=== PATIENT | male | born 1955 | race Caucasian/White ===

== ENCOUNTER 2025-04-08 15:30 | Emergency (ER) | payer MEDICARE, MEDICAID, SELFPAY ==
--- NOTE | ~2025-04-08 | CT_ITS ---
CLINICAL HISTORY: opthalmology request for possible CVA CT head without contrast. COMPARISON: None FINDINGS: The visualized paranasal sinuses are clear. The mastoid air cells are clear. No calvarial fracture. Atherosclerotic intracranial vasculature. Encephalomalacia within the medial left occipital lobe consistent with remote infarct. No mass or mass effect. No intracranial hemorrhage or abnormal extra-axial fluid collection. Basal ganglia mineralization present. The ventricles are proportional with the degree of mild global cerebral volume loss without evidence of hydrocephalus. Basilar cisterns are patent. There are periventricular areas of low attenuation compatible with mild white matter small vessel disease. Posterior fossa appears unremarkable. IMPRESSION: 1. No acute intracranial findings. 2. Chronic left occipital lobe infarct. This document has been electronically signed by: Severo Bermudez MD on 04/08/2025 17:01:34
--- NOTE | 2025-04-08 15:35 | ED_ITS ---
HPI - General Adult General Chief complaint: Recheck/Abnormal Lab/Rx Stated complaint: MRI threatening stroke sent by eye DrChetan & pcp Time Seen by Provider: 04/08/25 17:02 Source: patient, family and old records reviewed Mode of arrival: ambulatory Limitations: no limitations History of Present Illness ED Provider: KARAN HPI narrative: 69 yo male with PMH of HTN, HLD, ESRD on HD M W F and is compliant with HD but is not compliant with his statin/aspirin. He has no hx of afib. Several months ago he was at the doctors and family noticed his eye and face seemed off - they think the R eye. He never had it worked up. He had a doctors appointment today and eye doctor felt his gaze was off and he had a visual field cut. The patient tells me this has been going on for months he was referred here for possible stroke by eye doctor - first time he has seen his doctor since that event months ago. No new symptoms this has been several months. MD complaint: concern for stroke Onset (ago): month(s) Location: eyes Radiation: non-radiation Severity: mild Quality: other (blurry) Relieving factors: none Exacerbating factors: none Associated symptoms: denies other symptoms Treatments prior to arrival: none Related Data Allergies Allergy/AdvReac Type Severity Reaction Status Date / Time No Known Allergies Allergy Verified 04/08/25 15:39 Review of Systems 2 Review of Systems: Constitutional : No Fever, No Chills, No Fatigue ENT/Mouth : No sore throat, No Rhinorrhea Eyes: No Eye Pain, No Swelling, No Redness Cardiovascular : No Chest Pain, No SOB, No Dyspnea on Exertion Respiratory : No Cough, No Sputum Gastrointestinal : No Nausea, No Vomiting, No Diarrhea, No abdominal Pain Genitourinary : No Dysuria, No Urinary Frequency, No Hematuria, Musculoskeletal : No joint pain, No Myalgias, No Joint Swelling Skin : No Skin Lesions, No rash Neuro : No Weakness, No Numbness, No Dizziness, no Headache All other systems reviewed and are negative [facility], [facility] Past Medical History Attestation statement: The following information was validated with the patient. Medical History HTN (hypertension) Hyperlipidemia ESRD (end stage renal disease) Social History Social History (Updated 04/08/25 @ 17:37 by Roselia Potter DO) Patient Tobacco Use Status: Tobacco use Unknown Physical Exam ED Vital Signs: Vital Signs - 24 hr 04/08/25 15:37 04/08/25 16:25 Temperature 98.0 F 97.6 F Pulse Rate 90 82 Respiratory Rate 18 18 Blood Pressure 149/71 H 166/77 H Pulse Oximetry 96 98 Oxygen Delivery Method Room Air Room Air BMI result Body Mass Index 26.7 Appearance: Alert. Oriented X3. No acute distress. Eyes: Pupils equal, round and reactive to light. ENT: Pharynx normal. Neck: Normal inspection. Neck supple. CVS: Normal heart rate and rhythm. Pulses normal. Respiratory: No respiratory distress. Breath sounds normal. Abdomen: Soft and nontender. Skin: Skin warm and dry. Normal skin color. Normal skin turgor. Extremities: No lower extremity edema. No calf ttp Neuro: Oriented X 3. No motor deficit. No sensory deficit. CN2-12 intact NIH Stroke Scale Internal: Initial- Upon Arrival Level of Consciousness: Alert Level of Consciousness Questions: Answers both questions correctly Level of Consciousness Commands: Performs both tasks correctly Best Gaze: Normal Visual: Partial hemianopia Facial Palsy: Normal Motor Arm (Right): No drift Motor Arm (Left): No drift Motor Leg (Right): No drift Motor Leg (Left): No drift Limb Ataxia: Absent Sensory: Normal Best Language: No aphasia Dysarthia: Normal Extinction and Inattention: No abnormality Score: 1 Course Reevaluation(s) Reevaluation #1: This is a rapid medical exam performed by Richi Caputo NP: Additional HPI, ROS, PE not included below will be deferred to primary provider. 69 yo male with PMHx CKD on dialysis 3x/wk, T2DM, of presents to the ED after being sent from ophthalmology due to to visual field revealing right inferior quandrantonopsia and requesting MRI. Patient states he has had visual changes over past few years . Denies headache, nausea, vomiting. PE: A&O x3, no focal neurological deficits, ambulating with walker Plan: Ct head/brain Medical Decision Making Medical Decision Making MDM Narrative: 69 yo male with PMH of HTN, HLD, ESRD on HD M W and is compliant with HD here with old stroke symptoms but sent in by eye doctor he has no complaints that are new notes it has been several months - at this time will obtain CT head to rule out symptoms. He is not a candidate for TNK and given chronicity does not need CTA or MRI. He can start back on statin and aspirin. Differential Diagnosis Differential Diagnoses: The differential diagnosis associated with the presentation includes chronic stroke, lens, catarach Admission/Observation Consideration of admission/observation: Escalation of care including admission/observation considered several months ago and chronic infarct no indication for acute work up start back on statin and aspirin Independent Interpretation I performed an independent interpretation of an: Rhythm Strip and CT Scan Interpretation: NSR Radiology Impression Discussion of test interpretation with radiology: I have reviewed the radiologist's reading. Independent Historian Clinical information obtained from an independent historian. History obtained from or confirmed by: Other (family) External Record Review External record reviewed: Outpatient record Tests considered The following testing was considered but not selected: they defer labs at this time the y have no concerns Discharge Plan Discharge Clinical Impression: Chronic cerebrovascular accident Patient Disposition: Home, Self-Care Instructions: Stroke (DC), Stroke Prevention (ED) Additional Instructions: your CT scan shows old stroke it is important you take this seriously and start back on your statin and baby aspirin return for any worsening symptoms or concerns follow up as planned with your doctors if you have further stroke symptoms please call 911 immediately FINDINGS: The visualized paranasal sinuses are clear. The mastoid air cells are clear. No calvarial fracture. Atherosclerotic intracranial vasculature. Encephalomalacia within the medial left occipital lobe consistent with remote infarct. No mass or mass effect. No intracranial hemorrhage or abnormal extra-axial fluid collection. Basal ganglia mineralization present. The ventricles are proportional with the degree of mild global cerebral volume loss without evidence of hydrocephalus. Basilar cisterns are patent. There are periventricular areas of low attenuation compatible with mild white matter small vessel disease. Posterior fossa appears unremarkable. IMPRESSION: 1. No acute intracranial findings. 2. Chronic left occipital lobe infarct. Print Language: Azerbaijani
[2025-04-08 15:37] VITALS: BP 149/71; PULSE 90; RESP 18; TEMP 36.7; O2SAT 96; BMI 26.7
[2025-04-08 16:25] VITALS: BP 166/77; PULSE 82; RESP 18; TEMP 36.4; O2SAT 98
--- NOTE | 2025-04-08 17:39 | PC.NURSE ---
pt cleared for DC - pt has no focal neuro deficits. he is reporting some blurriness in left eye, attributing it to cataracts. No facial droop, slurred speech, unsteady gait.
[2025-04-08 18:08] VITALS: BP 166/77; PULSE 82; RESP 18; TEMP 36.4; O2SAT 98
== END 2025-04-08 18:09 | disposition home or self-care (01) ==
PROVIDERS: Emergency Provider Emergency Medicine; PCP Family Medicine
DX: I69.312 Visuospatial deficit and spatial neglect following cerebral infarction (principal); H53.8 Other visual disturbances; I12.0 Hypertensive chronic kidney disease with stage 5 chronic kidney disease or end stage renal disease; N18.6 End stage renal disease; Z99.2 Dependence on renal dialysis; R29.701 NIHSS score 1
CPT/HCPCS: 70450; 99282; 99284

== ENCOUNTER → 2025-04-08 15:41 | Outpatient (BNV) | payer MEDICARE, MEDICAID, SELFPAY | PROVIDERS: Emergency Provider Emergency Medicine; PCP Family Medicine; Visit Provider Radiology Diagnostic Radiology | DX: I63.532 Cerebral infarction due to unspecified occlusion or stenosis of left posterior cerebral artery (principal) | CPT/HCPCS: 70450 ==

== ENCOUNTER 2025-06-04 11:35 | Inpatient (IN) | payer MEDICARE, OTHER, SELFPAY ==
--- NOTE | ~2025-06-04 | XR_ITS ---
CLINICAL HISTORY: 2nd toe infection, diabetic Exam: Left foot and 2nd toe three views Comparison: None Findings: Soft tissue thickening and osseous destruction of 2nd toe distal phalanx, no soft tissue emphysema or radiopaque foreign body. No acute fracture or dislocation. Mild degenerative changes of 1st tarsometatarsal joint. Severe arteriosclerosis. Impression: 2nd toe distal phalanx soft tissue thickening and osseous destruction, concerning for acute osteomyelitis in the setting of known soft tissue infection and diabetes. This document has been electronically signed by: Carol Ramires MD on 06/04/2025 13:21:51
--- NOTE | ~2025-06-04 | MR_ITS ---
CLINICAL HISTORY: osteomyelitis Pt motion throughout exam. MR left foot with and without gadolinium Comparison: None provided Findings: There is motion artifact on multiple sequences. Signal abnormality and enhancement in the 2nd middle and distal phalanges consistent with osteomyelitis. No acute fracture. No joint effusion. Subcutaneous edema throughout the forefoot most prominent around the 2nd digit without rim enhancing abscess. No tears of the visualized flexor and extensor tendons. Partially visualized medial, lateral, and central bands of the plantar fascia are intact. IMPRESSION: Osteomyelitis of the 2nd middle and distal phalanges. This document has been electronically signed by: Neo Meek MD on 06/06/2025 18:33:44
[2025-06-04 11:47] VITALS: BP 138/78; PULSE 84; RESP 15; TEMP 36.1; O2SAT 97; BMI 23.9
--- NOTE | 2025-06-04 12:10 | ED.EXTPRO ---
HPI - Extremity Problem General Chief complaint: Extremity Problem Stated complaint: toe infection Time Seen by Provider: 06/04/25 11:54 Source: patient and other (friend) Mode of arrival: ambulatory Limitations: no limitations History of Present Illness ED Provider: LISY SOUSA PA-C HPI Narrative: 70 year old male with pmhx significant for HTN, HLD, ESRD on HD M/W/F (last dialyzed today), DM with peripheral neuropathy presents to the ED today with concerns for toe infection. His friend Nimesh is at bedside to assist with history. She reports seeing the patient on Saturday (1 week ago) and he did not have any obvious injury or infectious changes to the toe. She reports seeing him today, noticed that the left 2nd toe looked injured with overlying wound. Reports that it had been draining her a white discharge. States this injury must have happened over the last week since she saw him. Patient cannot recall the exact moment in which he injured the toe due to his neuropathy. He denies any pain at present. Reports decreased sensation to the left foot secondary to his neuropathy. 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 Denies fever, chills. No other concerns. Related Data Home Medications ?Medication ?Instructions ?Recorded ?Confirmed aspirin 81 mg tablet,delayed 81 mg PO DAILY 06/04/25 release atorvastatin 40 mg tablet 40 mg PO DAILY 06/04/25 ketorolac 0.5 % eye drops drp 06/04/25 sertraline 50 mg tablet 50 mg PO DAILY 06/04/25 Allergies Allergy/AdvReac Type Severity Reaction Status Date / Time No Known Allergies Allergy Verified 06/04/25 11:50 Review of Systems Review of Systems: Yes all other systems are reviewed and are negative PMFSH Past Medical History Attestation statement: The following information was validated with the patient. Source: old records reviewed, nursing notes reviewed and other (friend nimesh) Medical History HTN (hypertension) Hyperlipidemia ESRD (end stage renal disease) Social History Social History Patient Tobacco Use Status: Former Tobacco user Physical Exam Vital Signs: Vital Signs: Last Vital Signs Temp 96.9 F 06/04/25 11:47 Pulse 84 06/04/25 11:47 Resp 15 06/04/25 11:47 BP 138/78 06/04/25 11:47 Pulse Ox 97 06/04/25 11:47 O2 Del Method Room Air 06/04/25 11:47 BMI result Body Mass Index 23.9 Vital signs stable, afebrile General: Well appearing, in no acute distress. Skin: Warm, dry, intact. No rashes or lesions. Head: Normocephalic, atraumatic. EENT: Hearing is intact b/l. Conjunctiva clear. PERRLA. EOM intact. Moist mucous membranes.? Cardiac: Chest wall symmetric. RRR Lungs: Normal respiratory effort without accessory muscle use. CTA bilaterally Abdomen: Soft, non-tender, non-distended. No rebound tenderness or guarding. Positive BS x4. Ext: +see photo of L foot below. Neuro: AOx3. Normal speech. Ambulating with steady gait. Psych: Appropriate mood and affect. Responds appropriately to questions. Course Course Course Narrative: 1336 -- CBC without leukocytosis. Normocytic anemia, appears to be stable when compared to priors. Chemistry without acute electrolyte abnormality requiring intervention. Renal function appears to be around baseline ESRD, BUN 25 and creatinine 4.47. He was last dialyzed today. Fasting glucose 127. CRP elevated to 1.66, ESR elevated to 75. I received call from Radiology with critical read of acute osteomyelitis of left 2nd toe. > informed patient of workup results. Osteomyelitis will require admission for IV antibiotics. Patient is agreeable with this. He does not endorse any pain at present. > lactic and blood cultures added > IV ceftriaxone and vanco ordered. Will reach out to hospitalist for admission. Medical Decision Making Medical Decision Making [facility] Narrative: 70 year old male with pmhx significant for HTN, HLD, ESRD on HD M/W/F (last dialyzed today), DM with peripheral neuropathy presents to the ED today with concerns for toe infection. Vital signs stable, afebrile. Please refer to exam portion findings. Plan for labs, inflammatory markers, x-rays, re-evaluation Differential Diagnosis Differential Diagnoses: The differential diagnosis associated with the presentation includes ostemyelitis, fracture, onychomycosis, cellulitis, tinea pedis, PAD, diabetic foot wound/ ulcer Admission/Observation Consideration of admission/observation: Escalation of care including admission/observation considered Patient admitted to medicine for management of acute osteomyelitis of left 2nd toe. Consult Healthcare Provider Management of the patient was discussed with: Hospitalist (dr. liang) Lab Data MDM Lab Attestation statement: I reviewed the patient's lab results. As above 06/04/25 12:20 06/04/25 12:20 Labs: Lab Results 06/04/25 Range/Units 12:20 WBC 10.3 (4.8-10.8) X10*3/uL RBC 3.51 L (4.60-5.80) X10*6/uL Hgb 11.9 L (14.0-18.0) g/dl Hct 33.6 L (42.0-52.0) % MCV 95.7 (80.0-98.0) fL MCH 33.9 H (27.0-33.0) pg MCHC 35.4 (31.0-36.0) g/dl RDW 13.2 (11.0-16.0) % Plt Count 175 D (160-400) X10*3/uL MPV 9.3 L (9.4-12.4) fL Immature Gran % (Auto) 0.9 H (0.0-0.4) % Neut % (Auto) 73.5 H (45-73) % Lymph % (Auto) 13.2 L (20-40) % [place] % (Auto) 8.1 (2-11) % Eos % (Auto) 3.8 (0-4) % Baso % (Auto) 0.5 (0-2) % Lymph # (Auto) 1.4 (1.2-4.9) X10*3/uL [place] # (Auto) 0.8 (0.1-1.2) X10*3/uL Eos # (Auto) 0.4 (0.0-0.4) X10*3/uL Baso # (Auto) 0.1 (0.0-0.2) X10*3/uL Abs Immat Gran (auto) 0.09 H (0.00-0.03) X10*3/uL Absolute Neuts (auto) 7.6 (2.0-8.3) x10*3/uL Absolute Nucleated RBC 0.000 (0.0-0.012) X10*3/uL Nucleated RBC % (auto) 0.0 (0.0-0.2) /100WBC ESR 75 H (0-15) MM/HR Sodium 136 (135-145) mmol/L Potassium 4.3 (3.3-5.1) mmol/L Chloride 94 L (96-108) mmol/L Carbon Dioxide 28 (22-29) mmol/L Anion Gap 18 (12-20) BUN 25 H (9-16) mg/dL Creatinine 4.47 H* (0.5-1.4) mg/dL Estim Creat Clear Calc 16.6 Estimated GFR 13 Fasting Glucose 127 H (60-99) mg/dL Calcium 9.4 (8.4-10.2) mg/dL C-Reactive Protein 1.66 H (< or = 0.50) mg/dL Hold Red Top See Note Independent Interpretation I performed an independent interpretation of an: Plain X-Ray Interpretation: X-ray left 2nd toe showing osseous destruction Radiology Impression Discussion of test interpretation with radiology: I have reviewed the radiologist's reading. Radiologist Impression: Procedure(s): XR toe LT min 2V Accession Number(s): [id number] cc: Isabell Sheridan MD; Lisy Sousa ADDENDUMThis document has been electronically signed by: Carol Ramires MD on 06/04/2025 13:21:51 ADDENDUM: This report was discussed with Lisy Sousa PA-C on Jun 04, 2025 13:26:00 EDT. This document has been electronically signed by: Fiona Monaco on 06/04/2025 13:26:37 Addendum Dictated By: Carol Ramires MD Addendum Signed By: <Electronically signed by Carol Ramires MD in OV> 06/04/251326 Addendum Cosigned By: DD/ /26/1321 TD/TT: 06/04/2503/26/1326 CLINICAL HISTORY: 2nd toe infection, diabetic Exam: Left foot and 2nd toe three views Comparison: None Findings: Soft tissue thickening and osseous destruction of 2nd toe distal phalanx, no soft tissue emphysema or radiopaque foreign body. No acute fracture or dislocation. Mild degenerative changes of 1st tarsometatarsal joint. Severe arteriosclerosis. Impression: 2nd toe distal phalanx soft tissue thickening and osseous destruction, concerning for acute osteomyelitis in the setting of known soft tissue infection and diabetes. This document has been electronically signed by: Carol Ramires MD on 06/04/2025 13:21:51 Independent Historian Clinical information obtained from an independent historian. History obtained from or confirmed by: Friend (nimesh) External Record Review External record reviewed: Inpatient record Prescription Management I considered prescription management with: Pain Medication and Antibiotic Chronic Conditions Patient?s care impacted by: Diabetes and Other (neuropathy) Social Determinants Patient?s care significantly limited by Social Determinants of Health including: Other Social Determinant of Health Critical Care Time Critical Care Time Critical Care Time: Yes Total Critical Care Time: 32 Attestation: Critical care time in the amount of 32 minutes has been provided to the patient in terms of direct patient care, frequent reevaluation, consultation with hospitalist, review and interpretation of medical data and results, and management of potentially life-threatening conditions. This is all outside of any medical procedures. Discharge Plan Discharge Clinical Impression: Osteomyelitis Qualifiers: Osteomyelitis location: foot Laterality: left Patient Disposition: Admitted As Inpatient Interventions: Admission Worksheet (ED) Last Done: 06/04/25 13:54
[2025-06-04 12:25] LABS: MANUAL DIFF FLAG NO
[2025-06-04 12:28] LABS: Hematocrit 33.6 % (42.0-52.0); Hemoglobin 11.9 g/dl (14.0-18.0); Imm Gran Abs Auto 0.09 X10*3/uL (0.00-0.03); Imm Gran Pct Auto 0.9 % (0.0-0.4); Lymphocytes Absolute Auto 1.4 X10*3/uL (1.2-4.9); Mean Corpuscular HGB Conc 35.4 g/dl (31.0-36.0); Mean Corpuscular Hemoglobin 33.9 pg (27.0-33.0); Mean Corpuscular Volume 95.7 fL (80.0-98.0); NRBC Abs Auto 0.000 X10*3/uL (0.0-0.012); NRBC Pct Auto 0.0 /100WBC (0.0-0.2); Platelet Count 175 X10*3/uL (160-400); Red Blood Count 3.51 X10*6/uL (4.60-5.80); White Blood Count 10.3 X10*3/uL (4.8-10.8)
[2025-06-04 12:52] LABS: Anion Gap 18 (12-20); Blood Urea Nitrogen 25 mg/dL (9-16); Calcium 9.4 mg/dL (8.4-10.2); Carbon Dioxide 28 mmol/L (22-29); Chloride 94 mmol/L (96-108); Creatinine Clr Calc Pharmacy 16.6; Estimated Glomerular Filt Rate 13; Potassium 4.3 mmol/L (3.3-5.1); Sodium 136 mmol/L (135-145)
[2025-06-04 13:55] VITALS: BP 143/82; PULSE 85; RESP 19; TEMP 36.1; O2SAT 97
[2025-06-04 14:02] VITALS: BP 93/51; PULSE 56; RESP 15; O2SAT 95
[2025-06-04] MEDS: vancomycin/NS 2,000 MG/500 ML PLAST..BAG 250 MG IV (14:28)
--- NOTE | 2025-06-04 14:30 | PHA.MEDREC ---
Pharmacy Consult ? Medication Reconciliation Pharmacy has completed the medication reconciliation. Spoke with patient and daughter to confirm home med regimen.
--- NOTE | 2025-06-04 14:30 | PM.IMHP ---
History of Present Illness Date of Service: 06/04/25 Chief Complaint: Left 2nd toe infection 70 year old male with pmhx significant for HTN, HLD, ESRD on HD M/W/F (last dialyzed today), DM with peripheral neuropathy presents to the ED today with concerns for left toe infection. His KILN FIRER last saw him 1 week ago and did not notice any injury. Patient states that due to his neuropathy he did not feel anything unusual. He does not recount any fall or injury to the toe. In the emergency room, workup consistent acute osteomyelitis in the backdrop of type 2 diabetes. Review of Systems Review of Systems: Denies chest pain Denies shortness of breath Denies nausea vomiting diarrhea Denies fever chills Denies pain overall [facility] Medical History (Updated 06/04/25 @ 14:37 by Con Canales DO) HTN (hypertension) Hyperlipidemia ESRD (end stage renal disease) Social History Patient Tobacco Use Status: Former Tobacco user Smoked in Last 30 Days: No Use of substances other than those prescribed or required for medical reasons: No Advance Directives: Yes Advance Directives Information Provided: No Advance Directives on File: No Do you have a plan to hurt others: No Plan Nutrition Risks: No Nutritional Risk Meds Allergies Allergy/AdvReac Type Severity Reaction Status Date / Time No Known Allergies Allergy Verified 06/04/25 11:50 Active Medications: Current Medications Vancomycin HCl (Vancomycin/Ns) 2,000 mg in 500 mls @ 250 mls/hr IV ONCE ONE Stop: 06/04/25 15:29 Last Admin: 06/04/25 14:28 Dose: 250 mls/hr Home Medications ?Medication ?Instructions ?Recorded ?Confirmed ?Last Taken ?Type aspirin 81 mg tablet,delayed 81 mg PO DAILY 06/04/25 06/04/25 06/04/25 09:00 History release atorvastatin 40 mg tablet 40 mg PO DAILY 06/04/25 06/04/25 06/04/25 09:00 History sevelamer carbonate 800 mg tablet 1,600 mg PO TIDAC 06/04/25 06/04/25 06/04/25 09:00 History Physical Exam Vital Signs and Narrative: Vital Signs: Last Vital Signs Temp 97.0 F 06/04/25 13:55 Pulse 56 06/04/25 14:02 Resp 15 06/04/25 14:02 BP 93/51 L 06/04/25 14:02 Pulse Ox 95 06/04/25 14:02 O2 Del Method Room Air 06/04/25 14:02 BMI result Body Mass Index 23.9 Const: Other: Awake alert no acute distress. Lying comfortably in bed Resp: Other: Clear to auscultation bilaterally. No rales rhonchi or wheezes Cardio: Other: No S4; positive S1-S2; no S3 2/6 systolic murmur left sternal border GI: Other: Soft nontender nondistended normoactive bowel sounds Neuro: Other: Cranial nerves 2-12 grossly intact as tested. Motor 5/5 in all extremities sensation intact upper extremity mid tibial distally with decreased sensation. Vibration not tested. Cognition appropriate. Gait not observed Extrem: Other: No edema bilaterally. See ER photo for left 2nd toe Results Labs 06/04/25 12:20 06/04/25 12:20 Labs: Laboratory Results - last 24 hr 06/04/25 06/04/25 12:20 13:38 MCV 95.7 MCH 33.9 H MCHC 35.4 RDW 13.2 Plt Count 175 D MPV 9.3 L Immature Gran % (Auto) 0.9 H Neut % (Auto) 73.5 H Lymph % (Auto) 13.2 L [place] % (Auto) 8.1 Eos % (Auto) 3.8 Baso % (Auto) 0.5 Lymph # (Auto) 1.4 [place] # (Auto) 0.8 Eos # (Auto) 0.4 Baso # (Auto) 0.1 Abs Immat Gran (auto) 0.09 H Absolute Neuts (auto) 7.6 Absolute Nucleated RBC 0.000 Nucleated RBC % (auto) 0.0 ESR 75 H Anion Gap 18 Estim Creat Clear Calc 16.6 Estimated GFR 13 Fasting Glucose 127 H Lactic Acid 1.7 Calcium 9.4 C-Reactive Protein 1.66 H Hold Red Top See Note Assessment and Plan (1) Osteomyelitis: Qualifiers: Laterality: left Osteomyelitis location: foot Osteomyelitis type: unspecified type Qualified Code(s): M86.9 - Osteomyelitis, unspecified Status: Acute (2) ESRD (end stage renal disease): Status: Acute (3) Diabetes type 2, controlled: Status: Acute (4) HTN (hypertension): Status: Acute Plan 70 year old male with pmhx significant for HTN, HLD, ESRD on HD M/W/F (last dialyzed today), DM with peripheral neuropathy presents to the ED today with left 2nd toe osteomyelitis. 1. Osteomyelitis left 2nd toe -vancomycin/Zosyn (1) -blood cultures drawn/pending -MRI left foot spot toe in a.m. -ID consult in a.m. 2. End-stage renal disease on hemodialysis -HD schedule Saturday (dialyze today). . . Follows with Dr. Mckeon -consult Dr. Mckeon for ongoing hemodialysis if needed 3. Diabetes type 2 -states diet control. .. Last A1c 5.5 -lispro correctional scale -Diabetic diet -adjust as indicated 4. Hypertension -acceptable control on current therapies -adjust as indicated Full code Heparin Patient will require at least 2 midnights going forward of inpatient stay to treat osteomyelitis with IV antibiotics and obtain specialty consultation. This can not be achieved a lesser acute setting Quality Stroke Does the patient have a stroke diagnosis?: No VTE Prior VTE?: No VTE Risk Level:: Medical - moderate - high VTE Device Contraindication: Treatment Not Indicated VTE Drug Contraindication: N/A - Med Ordered
[2025-06-04 15:49] VITALS: BMI 25.8
[2025-06-04] MEDS: Sevelamer Carbonate Tablet 800 MG TABLET 1600 MG PO (15:57)
[2025-06-04 16:00] VITALS: BP 131/67; PULSE 81; RESP 18; TEMP 36.8; O2SAT 96
[2025-06-04 16:07] LABS: Glucose, Whole Blood 151 mg/dL (60-115)
[2025-06-04 19:46] LABS: Glucose, Whole Blood 161 mg/dL (60-115)
[2025-06-04 19:49] VITALS: BP 151/74; PULSE 78; RESP 18; TEMP 36.9; O2SAT 96
[2025-06-04] MEDS: 0.9 % Sodium Chloride Flush 3 ML SYRINGE IVFLUSH (20:20)
[2025-06-05 03:28] VITALS: BP 140/70; PULSE 72; RESP 18; TEMP 36.6; O2SAT 96
[2025-06-05 06:09] LABS: MANUAL DIFF FLAG NO
[2025-06-05 06:13] LABS: Hematocrit 33.9 % (42.0-52.0); Hemoglobin 11.6 g/dl (14.0-18.0); Imm Gran Abs Auto 0.07 X10*3/uL (0.00-0.03); Imm Gran Pct Auto 0.7 % (0.0-0.4); Lymphocytes Absolute Auto 1.5 X10*3/uL (1.2-4.9); Mean Corpuscular HGB Conc 34.2 g/dl (31.0-36.0); Mean Corpuscular Hemoglobin 33.3 pg (27.0-33.0); Mean Corpuscular Volume 97.4 fL (80.0-98.0); NRBC Abs Auto 0.000 X10*3/uL (0.0-0.012); NRBC Pct Auto 0.0 /100WBC (0.0-0.2); Platelet Count 173 X10*3/uL (160-400); Red Blood Count 3.48 X10*6/uL (4.60-5.80); White Blood Count 9.7 X10*3/uL (4.8-10.8)
[2025-06-05 06:37] LABS: Alanine Aminotransferase 11 U/L (0-40); Albumin Level 4.0 g/dL (3.5-5.0); Alkaline Phosphatase 82 U/L (39-117); Anion Gap 21 (12-20); Aspartate Amino Transferase 15 U/L (5-37); Blood Urea Nitrogen 42 mg/dL (9-16); Calcium 9.3 mg/dL (8.4-10.2); Carbon Dioxide 26 mmol/L (22-29); Chloride 95 mmol/L (96-108); Creatinine Clr Calc Pharmacy 11.5; Estimated Glomerular Filt Rate 9; Potassium 5.3 mmol/L (3.3-5.1); Sodium 137 mmol/L (135-145); Total Protein 7.4 g/dL (6.5-8.0)
[2025-06-05 07:27] LABS: Glucose, Whole Blood 128 mg/dL (60-115)
[2025-06-05 07:40] VITALS: BP 134/73; PULSE 78; RESP 18; TEMP 36.7; O2SAT 95
[2025-06-05] MEDS: Sevelamer Carbonate Tablet 800 MG TABLET 1600 MG PO ×3 (08:29→16:48)
[2025-06-05] MEDS: Aspirin Enteric Coated 81 MG TABLET.DR PO (08:29)
[2025-06-05] MEDS: 0.9 % Sodium Chloride Flush 3 ML SYRINGE IVFLUSH ×3 (08:31→20:26)
[2025-06-05] MEDS: Milk of Magnesia 30 ML ORAL.SUSP PO (09:04)
--- NOTE | 2025-06-05 10:17 | MHC.CM.PN ---
PT REPORTS HE LIVES WITH HIS SON AND EX- HE HAS A REGISTERED DENTAL ASSISTANT RDA TYPICALLY EVERY OTHER DAY AND GOES TO [facility] FOR HD MWF FOR A 0530 CHAIR TIME HE USES A ROLLATOR TO AMBULATE COPY OF HCP REQUESTED PCP: SEBASTIÁN SMYTH IMM DELIVERED PT STATES HE THINKS HE HAS SOMEONE THAT CAN ASSIST WITH IV ABX HE WOULD PREFER TO GO HOME WITH SERVICES IF POSSIBLE PRIVATE TRANSPORT IF HE GOES HOME. REFERRALS MADE TO [place] AND [place]
[2025-06-05 12:01] LABS: Glucose, Whole Blood 172 mg/dL (60-115)
--- NOTE | 2025-06-05 14:01 | P.PNIM_ITS ---
Subjective Subjective Date of Service: 06/05/25 Interval History: No acute issues overnight. No pain Review of Systems Denies chest pain Denies shortness of breath Denies nausea vomiting diarrhea Denies fever chills Denies pain overall Physical Exam 2 Vital Signs: Vital Signs: Last Vital Signs Temp 98.1 F 06/05/25 07:40 Pulse 78 06/05/25 07:40 Resp 18 06/05/25 07:40 BP 134/73 06/05/25 07:40 Pulse Ox 95 06/05/25 07:40 O2 Del Method Room Air 06/05/25 07:40 BMI result Body Mass Index 25.8 Const: Other: Awake alert no acute distress. Lying comfortably in bed Resp: Other: Clear to auscultation bilaterally. No rales rhonchi or wheezes Cardio: Other: No S4; positive S1-S2; no S3 2/6 systolic murmur left sternal border GI: Other: Soft nontender nondistended normoactive bowel sounds Neuro: Other: Cranial nerves 2-12 grossly intact as tested. Motor 5/5 in all extremities sensation intact upper extremity mid tibial distally with decreased sensation. Vibration not tested. Cognition appropriate. Gait not observed Extrem: Other: No edema bilaterally. See ER photo for left 2nd toe Objective Data Active Medications Acetaminophen (Acetaminophen 325 Mg Tablet) 650 mg PO Q6H PRN PRN Reason: Pain, Mild 1-3,fever,headache Aspirin (Aspirin Enteric Coated 81 Mg Tablet.) 81 mg PO DAILY [facility] Last Admin: 06/05/25 08:29 Dose: 81 mg Documented By: JERO Atorvastatin Calcium (Atorvastatin Calcium 40 Mg Tablet) 40 mg PO DAILY [facility] Last Admin: 06/05/25 08:29 Dose: 40 mg Documented By: JERO Calcium Carbonate (Calcium Carbonate 750 Mg Tab.Chew) 750 mg PO Q4H PRN PRN Reason: Heartburn Dextrose (Dextrose 50 % 25 Gm/50 Ml Syringe) 25 gm IVPUSH Q15M PRN; Protocol PRN Reason: per Hypoglycemia Standing Ord. Glucose (Glucose Gel 15 Gm Gel..Gram.) 15 gm PO Q15M PRN; Protocol PRN Reason: per Hypoglycemia Standing Ord. Heparin Sodium (Porcine) (Heparin Sodium,Porcine 5,000 Unit/Ml Vial) 5,000 unit SUBCUT Q12H [facility] Last Admin: 06/05/25 03:23 Dose: 5,000 unit Documented By: TASNEEM Insulin Human Lispro (Insulin Lispro 100 Unit/Ml 3 Ml Vial) 0 unit SUBCUT QIDACHS [facility]; Protocol Last Admin: 06/05/25 12:16 Dose: 2 unit Documented By: JERO Magnesium Hydroxide (Milk Of Magnesia 30 Ml Oral.Susp) 30 ml PO DAILY PRN PRN Reason: Constipation Last Admin: 06/05/25 09:04 Dose: 30 ml Documented By: JERO Melatonin (Melatonin 3 Mg Tablet) 6 mg PO BEDTIME PRN PRN Reason: Insomnia Ondansetron HCl (Ondansetron Hcl 4 Mg/2 Ml Vial) 4 mg IVPUSH Q8H PRN PRN Reason: Nausea and Vomiting Sevelamer Carbonate (Sevelamer Carbonate Tablet 800 Mg Tablet) 1,600 mg PO TIDAC [facility] Last Admin: 06/05/25 12:12 Dose: 1,600 mg Documented By: JERO Sodium Chloride (0.9 % Sodium Chloride Flush 3 Ml Syringe) [facility] Last Admin: 06/05/25 08:31 Dose: 3 ml Documented By: JERO Labs 06/05/25 05:45 06/05/25 05:45 Labs: Laboratory Results - last 24 hr 06/04/25 06/04/25 06/04/25 13:38 15:58 19:37 MCV MCH MCHC RDW Plt Count MPV Immature Gran % (Auto) Neut % (Auto) Lymph % (Auto) [place] % (Auto) Eos % (Auto) Baso % (Auto) Lymph # (Auto) [place] # (Auto) Eos # (Auto) Baso # (Auto) Abs Immat Gran (auto) Absolute Neuts (auto) Absolute Nucleated RBC Nucleated RBC % (auto) Anion Gap Estim Creat Clear Calc Estimated GFR POC Glucose 151 H 161 H Fasting Glucose Lactic Acid 1.7 Calcium Total Bilirubin AST ALT Alkaline Phosphatase Total Protein Albumin 06/05/25 06/05/25 06/05/25 05:45 07:22 11:55 MCV 97.4 MCH 33.3 H MCHC 34.2 RDW 13.2 Plt Count 173 MPV 9.5 Immature Gran % (Auto) 0.7 H Neut % (Auto) 71.5 Lymph % (Auto) 15.1 L [place] % (Auto) 7.8 Eos % (Auto) 4.3 H Baso % (Auto) 0.6 Lymph # (Auto) 1.5 [place] # (Auto) 0.8 Eos # (Auto) 0.4 Baso # (Auto) 0.1 Abs Immat Gran (auto) 0.07 H Absolute Neuts (auto) 7.0 Absolute Nucleated RBC 0.000 Nucleated RBC % (auto) 0.0 Anion Gap 21 H Estim Creat Clear Calc 11.5 Estimated GFR 9 POC Glucose 128 H 172 H Fasting Glucose 156 H Lactic Acid Calcium 9.3 Total Bilirubin 0.4 AST 15 ALT 11 Alkaline Phosphatase 82 Total Protein 7.4 Albumin 4.0 Assessment and Plan (1) Osteomyelitis: Status: Acute (2) ESRD (end stage renal disease): Status: Acute (3) Diabetes type 2, controlled: Status: Acute (4) HTN (hypertension): Status: Acute Plan 70 year old male with pmhx significant for HTN, HLD, ESRD on HD M/W/F (last dialyzed today), DM with peripheral neuropathy presents to the ED today with left 2nd toe osteomyelitis. 1. Osteomyelitis left 2nd toe -vancomycin/Zosyn (2) -blood cultures drawn/pending -MRI left foot spot toe in a.m. -ID consult in a.m. 2. End-stage renal disease on hemodialysis -HD schedule Saturday (dialyze today). . . Follows with Dr. Mckeon -consult Dr. Mckeon for ongoing hemodialysis 3. Diabetes type 2 -states diet control. .. Last A1c 5.5 -lispro correctional scale -Diabetic diet -adjust as indicated 4. Hypertension -acceptable control on current therapies -adjust as indicated Full code Heparin Patient will require at least 2 midnights going forward of inpatient stay to treat osteomyelitis with IV antibiotics and obtain specialty consultation. This can not be achieved a lesser acute setting Quality Stroke Does the patient have a stroke diagnosis?: No VTE Prior VTE?: No VTE Risk Level:: Medical - moderate - high VTE Device Contraindication: Treatment Not Indicated VTE Drug Contraindication: N/A - Med Ordered
[2025-06-05 15:02] VITALS: BP 144/72; PULSE 78; RESP 18; TEMP 36.8; O2SAT 95
[2025-06-05 16:10] LABS: Glucose, Whole Blood 122 mg/dL (60-115)
[2025-06-05 19:09] VITALS: BP 148/74; PULSE 81; RESP 18; TEMP 37; O2SAT 95
[2025-06-05 20:12] LABS: Glucose, Whole Blood 127 mg/dL (60-115)
[2025-06-06] VITALS (7 sets, daily range): BP systolic 164–188; BP diastolic 81–90; PULSE 70–82; RESP 16–18; TEMP 36.6–36.9; O2SAT 96–97
--- NOTE | 2025-06-06 03:57 | PC.NURSE ---
Addendum entered by Jessica Pires RN 06/06/25 07:04: Handoff report given to oncoming RN at 06:45. Original Note: This screenplay writer assumed care of this patient at midnight 06/06. Pt denies pain or other acute issues. Pt observed resting in bed in no apparent distress on assessment and frequent purposeful rounding. Bed alarm on and safety measures in place. Call florian within reach and pt educated on use. Plan of care continues.
[2025-06-06 06:09] LABS: MANUAL DIFF FLAG NO
[2025-06-06 06:31] LABS: Hematocrit 31.6 % (42.0-52.0); Hemoglobin 10.8 g/dl (14.0-18.0); Imm Gran Abs Auto 0.05 X10*3/uL (0.00-0.03); Imm Gran Pct Auto 0.6 % (0.0-0.4); Lymphocytes Absolute Auto 1.6 X10*3/uL (1.2-4.9); Mean Corpuscular HGB Conc 34.2 g/dl (31.0-36.0); Mean Corpuscular Hemoglobin 33.3 pg (27.0-33.0); Mean Corpuscular Volume 97.5 fL (80.0-98.0); NRBC Abs Auto 0.000 X10*3/uL (0.0-0.012); NRBC Pct Auto 0.0 /100WBC (0.0-0.2); Platelet Count 163 X10*3/uL (160-400); Red Blood Count 3.24 X10*6/uL (4.60-5.80); White Blood Count 8.7 X10*3/uL (4.8-10.8)
[2025-06-06 07:42] LABS: Glucose, Whole Blood 124 mg/dL (60-115)
[2025-06-06] MEDS: Aspirin Enteric Coated 81 MG TABLET.DR PO (07:53)
[2025-06-06] MEDS: Sevelamer Carbonate Tablet 800 MG TABLET 1600 MG PO ×3 (07:53→16:42)
[2025-06-06] MEDS: 0.9 % Sodium Chloride Flush 3 ML SYRINGE IVFLUSH ×3 (07:54→20:23)
[2025-06-06 11:17] LABS: Glucose, Whole Blood 187 mg/dL (60-115)
--- NOTE | 2025-06-06 12:39 | HO.PM.IMPN ---
Subjective Subjective Date of Service: 06/06/25 Interval History: No acute issues overnight. Essentially no pain. Review of Systems Denies chest pain Denies shortness of breath Denies nausea vomiting diarrhea Denies fever chills Denies pain overall Physical Exam Vital Signs: Vital Signs: Last Vital Signs Temp 98.4 F 06/06/25 07:44 Pulse 82 06/06/25 07:44 Resp 17 06/06/25 07:44 BP 164/81 H 06/06/25 07:44 Pulse Ox 96 06/06/25 07:44 O2 Del Method Room Air 06/06/25 07:44 BMI result Body Mass Index 25.8 Const: Other: Awake alert no acute distress. Lying comfortably in bed Resp: Other: Clear to auscultation bilaterally. No rales rhonchi or wheezes Cardio: Other: No S4; positive S1-S2; no S3 2/6 systolic murmur left sternal border GI: Other: Soft nontender nondistended normoactive bowel sounds Neuro: Other: Cranial nerves 2-12 grossly intact as tested. Motor 5/5 in all extremities sensation intact upper extremity mid tibial distally with decreased sensation. Vibration not tested. Cognition appropriate. Gait not observed Extrem: Other: No edema bilaterally. See ER photo for left 2nd toe Objective Data Active Medications Acetaminophen (Acetaminophen 325 Mg Tablet) 650 mg PO Q6H PRN PRN Reason: Pain, Mild 1-3,fever,headache Aspirin (Aspirin Enteric Coated 81 Mg Tablet.) 81 mg PO DAILY [facility] Last Admin: 06/06/25 07:53 Dose: 81 mg Documented By: CHERYLE Atorvastatin Calcium (Atorvastatin Calcium 40 Mg Tablet) 40 mg PO DAILY [facility] Last Admin: 06/06/25 07:53 Dose: 40 mg Documented By: CHERYLE Calcium Carbonate (Calcium Carbonate 750 Mg Tab.Chew) 750 mg PO Q4H PRN PRN Reason: Heartburn Dextrose (Dextrose 50 % 25 Gm/50 Ml Syringe) 25 gm IVPUSH Q15M PRN; Protocol PRN Reason: per Hypoglycemia Standing Ord. Glucose (Glucose Gel 15 Gm Gel..Gram.) 15 gm PO Q15M PRN; Protocol PRN Reason: per Hypoglycemia Standing Ord. Heparin Sodium (Porcine) (Heparin Sodium,Porcine 5,000 Unit/Ml Vial) 5,000 unit SUBCUT Q12H [facility] Last Admin: 06/06/25 02:06 Dose: 5,000 unit Documented By: BRANT Insulin Human Lispro (Insulin Lispro 100 Unit/Ml 3 Ml Vial) 0 unit SUBCUT QIDACHS [facility]; Protocol Last Admin: 06/06/25 11:39 Dose: 2 unit Documented By: CHERYLE Ketorolac Tromethamine (Ketorolac Tromethamine 0.5% Op 5 Ml Drops) 1 drop EYE-LEFT QID [facility] Magnesium Hydroxide (Milk Of Magnesia 30 Ml Oral.Susp) 30 ml PO DAILY PRN PRN Reason: Constipation Last Admin: 06/05/25 09:04 Dose: 30 ml Documented By: JERO Melatonin (Melatonin 3 Mg Tablet) 6 mg PO BEDTIME PRN PRN Reason: Insomnia Ondansetron HCl (Ondansetron Hcl 4 Mg/2 Ml Vial) 4 mg IVPUSH Q8H PRN PRN Reason: Nausea and Vomiting Sevelamer Carbonate (Sevelamer Carbonate Tablet 800 Mg Tablet) 1,600 mg PO TIDAC [facility] Last Admin: 06/06/25 11:39 Dose: 1,600 mg Documented By: CHERYLE Sodium Chloride (0.9 % Sodium Chloride Flush 3 Ml Syringe) 3 ml IVFLUSH QSHIFT [facility] Last Admin: 06/06/25 07:54 Dose: 3 ml Documented By: CHERYLE Labs 06/06/25 05:58 06/05/25 05:45 Labs: Laboratory Results - last 24 hr 06/05/25 06/05/25 06/06/25 16:06 20:04 05:58 MCV 97.5 MCH 33.3 H MCHC 34.2 RDW 12.9 Plt Count 163 MPV 9.7 Immature Gran % (Auto) 0.6 H Neut % (Auto) 68.2 Lymph % (Auto) 18.0 L [place] % (Auto) 7.7 Eos % (Auto) 4.9 H Baso % (Auto) 0.6 Lymph # (Auto) 1.6 [place] # (Auto) 0.7 Eos # (Auto) 0.4 Baso # (Auto) 0.1 Abs Immat Gran (auto) 0.05 H Absolute Neuts (auto) 6.0 Absolute Nucleated RBC 0.000 Nucleated RBC % (auto) 0.0 POC Glucose 122 H 127 H 06/06/25 06/06/25 07:38 11:13 MCV MCH MCHC RDW Plt Count MPV Immature Gran % (Auto) Neut % (Auto) Lymph % (Auto) [place] % (Auto) Eos % (Auto) Baso % (Auto) Lymph # (Auto) [place] # (Auto) Eos # (Auto) Baso # (Auto) Abs Immat Gran (auto) Absolute Neuts (auto) Absolute Nucleated RBC Nucleated RBC % (auto) POC Glucose 124 H 187 H Microbiology Microbiology Results: Microbiology 06/04/25 13:38 Blood Culture - Preliminary Blood - Venous No growth after 24 hours. 06/04/25 13:38 Blood Culture - Preliminary Blood - Venous No growth after 24 hours. Assessment and Plan (1) Osteomyelitis: Status: Acute (2) ESRD (end stage renal disease): Status: Acute (3) HTN (hypertension): Status: Acute Plan 70 year old male with pmhx significant for HTN, HLD, ESRD on HD M/W/F (last dialyzed today), DM with peripheral neuropathy presents to the ED today with left 2nd toe osteomyelitis. 1. Osteomyelitis left 2nd toe -vancomycin/Zosyn (2) -blood cultures drawn.. Negative times 24 hours -MRI left foot spot toe pending -ID consult in a.m. 2. End-stage renal disease on hemodialysis -HD schedule Saturday (dialyze today). . . Follows with Dr. Mckeon -consult Dr. Mckeon for ongoing hemodialysis 3. Diabetes type 2 -states diet control. .. Last A1c 5.5 -lispro correctional scale -Diabetic diet -adjust as indicated 4. Hypertension -acceptable control on current therapies -adjust as indicated Full code Heparin Patient will require at least 2 midnights going forward of inpatient stay to treat osteomyelitis with IV antibiotics and obtain specialty consultation. This can not be achieved a lesser acute setting Quality Stroke Does the patient have a stroke diagnosis?: No VTE Prior VTE?: No VTE Risk Level:: Medical - moderate - high VTE Device Contraindication: Treatment Not Indicated VTE Drug Contraindication: N/A - Med Ordered
[2025-06-06] MEDS: Ketorolac Tromethamine 0.5% Op 5 ML DROPS 1 DROP EYE-LEFT ×3 (13:43→20:19)
[2025-06-06 16:17] LABS: Glucose, Whole Blood 106 mg/dL (60-115)
[2025-06-06 20:26] LABS: Glucose, Whole Blood 125 mg/dL (60-115)
--- NOTE | 2025-06-06 23:36 | PC.NURSE ---
Blood pressure readings reported to hospitalist on duty; 98.3-80-18-188/90 at shift start, repeat one hour, 179/89-77, then 174/84-74. noted elevated previous shift also. Patient denied pain, headaches, feeling dizzy or lightheaded. No new orders after MD read [place] Text note, will continue to monitor
[2025-06-07 00:35] VITALS: BP 168/85; PULSE 78; RESP 18
[2025-06-07 06:20] LABS: MANUAL DIFF FLAG NO
[2025-06-07 06:57] LABS: Hematocrit 30.8 % (42.0-52.0); Hemoglobin 10.9 g/dl (14.0-18.0); Imm Gran Abs Auto 0.05 X10*3/uL (0.00-0.03); Imm Gran Pct Auto 0.5 % (0.0-0.4); Lymphocytes Absolute Auto 1.3 X10*3/uL (1.2-4.9); Mean Corpuscular HGB Conc 35.4 g/dl (31.0-36.0); Mean Corpuscular Hemoglobin 34.1 pg (27.0-33.0); Mean Corpuscular Volume 96.3 fL (80.0-98.0); NRBC Abs Auto 0.000 X10*3/uL (0.0-0.012); NRBC Pct Auto 0.0 /100WBC (0.0-0.2); Platelet Count 175 X10*3/uL (160-400); Red Blood Count 3.20 X10*6/uL (4.60-5.80); White Blood Count 10.2 X10*3/uL (4.8-10.8)
[2025-06-07 07:01] LABS: Alanine Aminotransferase 6 U/L (0-40); Albumin Level 3.8 g/dL (3.5-5.0); Alkaline Phosphatase 83 U/L (39-117); Anion Gap 23 (12-20); Aspartate Amino Transferase 13 U/L (5-37); Blood Urea Nitrogen 88 mg/dL (9-16); Calcium 8.7 mg/dL (8.4-10.2); Carbon Dioxide 23 mmol/L (22-29); Chloride 94 mmol/L (96-108); Creatinine Clr Calc Pharmacy 7.3; Estimated Glomerular Filt Rate 5; Potassium 5.9 mmol/L (3.3-5.1); Sodium 134 mmol/L (135-145); Total Protein 7.0 g/dL (6.5-8.0)
[2025-06-07 07:33] LABS: Glucose, Whole Blood 111 mg/dL (60-115)
[2025-06-07 07:45] VITALS: BP 178/89; PULSE 82; RESP 16; TEMP 36.1; O2SAT 96
[2025-06-07] MEDS: 0.9 % Sodium Chloride Flush 3 ML SYRINGE IVFLUSH ×3 (07:47→22:45)
[2025-06-07] MEDS: Sevelamer Carbonate Tablet 800 MG TABLET 1600 MG PO ×3 (07:48→16:04)
[2025-06-07] MEDS: Ketorolac Tromethamine 0.5% Op 5 ML DROPS 1 DROP EYE-LEFT ×4 (07:48→20:42)
[2025-06-07] MEDS: Aspirin Enteric Coated 81 MG TABLET.DR PO (07:48)
[2025-06-07 10:48] LABS: Glucose, Whole Blood 104 mg/dL (60-115)
[2025-06-07 11:04] LABS: Glucose, Whole Blood 171 mg/dL (60-115)
--- NOTE | 2025-06-07 11:05 | P.CNID_ITS ---
History of Present Illness Data of Consult Service Date: 06/07/25 Requesting physician: Brenton Cat Primary Care Provider: Isabell Sheridan MD [facility] Reason for consult: left second toe OM He presents with left second toe redness and swelling. He thinks may have been injured,but not specific He has no fever or chills. MRI shows left middle and distal phalanges OM. He has neuropathy,HTN,ESRD and is on dialysis. Review of Systems 2 Review of Systems: Yes all other systems are reviewed and are negative [facility] Past Medical History Medical History HTN (hypertension) Hyperlipidemia ESRD (end stage renal disease) Family History Family history: reviewed and not pertinent Surgical History Surgical History H/O coronary artery bypass surgery Social History Social History Household Members: Family Housing: House Do you presently have visiting nurse or other home services: Yes ([employer].) Patient Tobacco Use Status: Former Tobacco user Advance Directives Date on File: 06/04/25 service: No Meds Allergies Allergy/AdvReac Type Severity Reaction Status Date / Time No Known Allergies Allergy Verified 06/04/25 11:50 Active Medications: Current Medications Acetaminophen (Acetaminophen 325 Mg Tablet) 650 mg PO Q6H PRN PRN Reason: Pain, Mild 1-3,fever,headache Aspirin (Aspirin Enteric Coated 81 Mg Tablet.) 81 mg PO DAILY [facility] Last Admin: 06/07/25 07:48 Dose: 81 mg Atorvastatin Calcium (Atorvastatin Calcium 40 Mg Tablet) 40 mg PO DAILY [facility] Last Admin: 06/07/25 07:47 Dose: 40 mg Calcium Carbonate (Calcium Carbonate 750 Mg Tab.Chew) 750 mg PO Q4H PRN PRN Reason: Heartburn Dextrose (Dextrose 50 % 25 Gm/50 Ml Syringe) 25 gm IVPUSH Q15M PRN; Protocol PRN Reason: per Hypoglycemia Standing Ord. Glucose (Glucose Gel 15 Gm Gel..Gram.) 15 gm PO Q15M PRN; Protocol PRN Reason: per Hypoglycemia Standing Ord. Heparin Sodium (Porcine) (Heparin Sodium,Porcine 5,000 Unit/Ml Vial) 5,000 unit SUBCUT Q12H [facility] Last Admin: 06/07/25 03:04 Dose: 5,000 unit Vancomycin HCl 500 mg/ Sodium (Chloride) 110 mls @ 110 mls/hr IV ONCE ONE Stop: 06/07/25 17:59 Vancomycin HCl 500 mg/ Sodium (Chloride) 110 mls @ 110 mls/hr IV ONCE ONE Stop: 06/07/25 10:59 Insulin Human Lispro (Insulin Lispro 100 Unit/Ml 3 Ml Vial) 0 unit SUBCUT QIDACHS [facility]; Protocol Last Admin: 06/07/25 07:44 Dose: Not Given Ketorolac Tromethamine (Ketorolac Tromethamine 0.5% Op 5 Ml Drops) 1 drop EYE- LEFT QID [facility] Last Admin: 06/07/25 07:48 Dose: 1 drop Magnesium Hydroxide (Milk Of Magnesia 30 Ml Oral.Susp) 30 ml PO DAILY PRN PRN Reason: Constipation Last Admin: 06/05/25 09:04 Dose: 30 ml Melatonin (Melatonin 3 Mg Tablet) 6 mg PO BEDTIME PRN PRN Reason: Insomnia Ondansetron HCl (Ondansetron Hcl 4 Mg/2 Ml Vial) 4 mg IVPUSH Q8H PRN PRN Reason: Nausea and Vomiting Pharmacy Consult (Consult Rx Vancomycin Dosing) 1 each MISCELLANE DAILY PRN PRN Reason: Consult order Sevelamer Carbonate (Sevelamer Carbonate Tablet 800 Mg Tablet) 1,600 mg PO TIDAC [facility] Last Admin: 06/07/25 07:48 Dose: 1,600 mg Sodium Chloride (0.9 % Sodium Chloride Flush 3 Ml Syringe) 3 ml IVFLUSH QSHIFT [facility] Last Admin: 06/07/25 07:47 Dose: 3 ml Home Medications ?Medication ?Instructions ?Recorded ?Confirmed ?Last Taken ?Type aspirin 81 mg tablet,delayed 81 mg PO DAILY 06/04/25 0 06/04/25 06/04/25 09:00 History release atorvastatin 40 mg tablet 40 mg PO DAILY 06/04/25 07/0 03/2606/04/25 09:00 History sevelamer carbonate 800 mg tablet 1,600 mg PO TIDAC 06/04/25 06/04/25 09:00 History ketorolac 0.5 % eye drops 1 drp ophthalmic-Left QID 06/05/25 Unknown History Physical Exam 2 Vital Signs: Vital Signs: Last Vital Signs Temp 97.0 F 06/07/25 07:45 Pulse 82 06/07/25 07:45 Resp 16 06/07/25 07:45 BP 178/89 H 06/07/25 07:45 Pulse Ox 96 06/07/25 07:45 O2 Del Method Room Air 06/07/25 07:45 BMI result Body Mass Index 25.8 Const: General: cooperative HEENT: Head: Yes normal to inspection Face and sinus: Yes normal facial exam Mouth: Normal oral and palatal mucosa present Teeth and gingiva: d entition normal Eyes: General: appearance normal, both eyes and all related structures P upils: Equal, round and reactive pupils present Resp: Effort & Inspection: normal respiratory effort Cardio: Rate: regular rate Rhythm: regular rhythm GI: Palpation (GI): Soft to palpation and nontender : General: Yes no CVA tenderness Back/Spine/Pelvis: Back: no CVA tenderness Skin: General skin exam: no rashes or lesions noted Neuro: General: moves all extremities Cranial nerves: Yes Equal, round and reactive pupils present Extrem: Other: swelling and erythema left second toe Pulses plus two neuropathy feet and legs Psych: Appearance: grossly normal Results Labs 06/07/25 05:46 06/07/25 05:46 Labs: Short CBC 06/07/25 Range/Units 05:46 WBC 10.2 (4.8-10.8) X10*3/uL Hgb 10.9 L (14.0-18.0) g/dl Hct 30.8 L (42.0-52.0) % Plt Count 175 (160-400) X10*3/uL BMP 06/07/25 05:46 Sodium 134 L Potassium 5.9 H Chloride 94 L Carbon Dioxide 23 BUN 88 H Creatinine 10.18 H* Calcium 8.7 D Liver Function 06/07/25 Range/Units 05:46 Total Bilirubin 0.5 (0.0-1.0) mg/dL AST 13 (5-37) U/L ALT 6 (0-40) U/L Alkaline Phosphatase 83 (39-117) U/L Albumin 3.8 (3.5-5.0) g/dL Microbiology Microbiology Results: Microbiology 06/04/25 13:38 Blood - Venous Blood Culture - Preliminary No growth after 48 hours. 06/04/25 13:38 Blood - Venous Blood Culture - Preliminary No growth after 48 hours. Assessment and Plan (1) ESRD (end stage renal disease): Status: Acute (2) Osteomyelitis: Qualifiers: Laterality: left Osteomyelitis location: foot Osteomyelitis type: u nspecified type Qualified Code(s): M86.9 - Osteomyelitis, unspecified Status: Acute Plan Osteomyelitis,no organism but probable staph/strep He has cultures pending Would give IV Vancomycin 1g after dialysis for six weeks. Follow Vascular. Vancomycin trough before HD,can contact me with results.
--- NOTE | 2025-06-07 12:11 | PC.NURSE ---
Patients Daughter Anabella called for an update on patient and reported that patient is very susceptible to C-dif and will need a probiotic or prophylactic treatment. Hospitalist was contacted and stated that if the family can bring in the probiotic an order can be given for it. This information was relayed back to Anabella who reported that she will take the probiotic in. Kenneth phone number is [phone]
--- NOTE | 2025-06-07 13:14 | P.PNIM_ITS ---
Subjective Subjective Date of Service: 06/07/25 Interval History: seen and evaluated this morning feels better overall no fever or chills plans for HD session today no other events Review of Systems Review of Systems: Yes all other systems are reviewed and are negative Physical Exam 2 Vital Signs: Vital Signs: Last Vital Signs Temp 97.0 F 06/07/25 07:45 Pulse 82 06/07/25 07:45 Resp 16 06/07/25 07:45 BP 178/89 H 06/07/25 07:45 Pulse Ox 96 06/07/25 07:45 O2 Del Method Room Air 06/07/25 07:45 BMI result Body Mass Index 25.8 Const: Other: Constitutional : interactive, not in distress Cardiovascular : no JVP, no lower extremity edema Respiratory : bilateral chest movement, not in resp distress Gastrointestinal: soft, lax, Non tender Skin : Warm, Dry, Left 2nd toe mild erythema and swelling, no drainage Neurological : Alert & oriented , No focal deficit Objective Data Active Medications Acetaminophen (Acetaminophen 325 Mg Tablet) 650 mg PO Q6H PRN PRN Reason: Pain, Mild 1-3,fever,headache Aspirin (Aspirin Enteric Coated 81 Mg Tablet.) 81 mg PO DAILY [facility] Last Admin: 06/07/25 07:48 Dose: 81 mg Documented By: HAILE Atorvastatin Calcium (Atorvastatin Calcium 40 Mg Tablet) 40 mg PO DAILY [facility] Last Admin: 06/07/25 07:47 Dose: 40 mg Documented By: HAILE Calcium Carbonate (Calcium Carbonate 750 Mg Tab.Chew) 750 mg PO Q4H PRN PRN Reason: Heartburn Dextrose (Dextrose 50 % 25 Gm/50 Ml Syringe) 25 gm IVPUSH Q15M PRN; Protocol PRN Reason: per Hypoglycemia Standing Ord. Glucose (Glucose Gel 15 Gm Gel..Gram.) 15 gm PO Q15M PRN; Protocol PRN Reason: per Hypoglycemia Standing Ord. Heparin Sodium (Porcine) (Heparin Sodium,Porcine 5,000 Unit/Ml Vial) 5,000 unit SUBCUT Q12H [facility] Last Admin: 06/07/25 03:04 Dose: 5,000 unit Documented By: DWAIN Vancomycin HCl 500 mg/ Sodium (Chloride) 110 mls @ 110 mls/hr IV ONCE ONE Stop: 06/07/25 17:59 Vancomycin HCl 500 mg/ Sodium (Chloride) 110 mls @ 110 mls/hr IV ONCE ONE Stop: 06/07/25 10:59 Insulin Human Lispro (Insulin Lispro 100 Unit/Ml 3 Ml Vial) 0 unit SUBCUT QIDACHS [facility]; Protocol Last Admin: 06/07/25 11:31 Dose: Not Given Documented By: HAILE Non-Admin Reason: No Insulin Coverage Ketorolac Tromethamine (Ketorolac Tromethamine 0.5% Op 5 Ml Drops) 1 drop EYE- LEFT QID [facility] Last Admin: 06/07/25 12:30 Dose: 1 drop Documented By: HAILE Magnesium Hydroxide (Milk Of Magnesia 30 Ml Oral.Susp) 30 ml PO DAILY PRN PRN Reason: Constipation Last Admin: 06/05/25 09:04 Dose: 30 ml Documented By: JERO Melatonin (Melatonin 3 Mg Tablet) 6 mg PO BEDTIME PRN PRN Reason: Insomnia Ondansetron HCl (Ondansetron Hcl 4 Mg/2 Ml Vial) 4 mg IVPUSH Q8H PRN PRN Reason: Nausea and Vomiting Pharmacy Consult (Consult Rx Vancomycin Dosing) 1 each MISCELLANE DAILY PRN PRN Reason: Consult order Sevelamer Carbonate (Sevelamer Carbonate Tablet 800 Mg Tablet) 1,600 mg PO TIDAC [facility] Last Admin: 06/07/25 11:33 Dose: 1,600 mg Documented By: HAILE Sodium Chloride (0.9 % Sodium Chloride Flush 3 Ml Syringe) 3 ml IVFLUSH QSHIFT [facility] Last Admin: 06/07/25 07:47 Dose: 3 ml Documented By: HAILE Labs 06/07/25 05:46 06/07/25 05:46 Labs: Laboratory Results - last 24 hr 06/04/25 06/06/25 06/06/25 13:14 16:09 20:17 MCV MCH MCHC RDW Plt Count MPV Immature Gran % (Auto) Neut % (Auto) Lymph % (Auto) Waldo % (Auto) Eos % (Auto) Baso % (Auto) Lymph # (Auto) Waldo # (Auto) Eos # (Auto) Baso # (Auto) Abs Immat Gran (auto) Absolute Neuts (auto) Absolute Nucleated RBC Nucleated RBC % (auto) Anion Gap Estim Creat Clear Calc Estimated GFR POC Glucose 104 106 125 H Fasting Glucose Calcium Total Bilirubin AST ALT Alkaline Phosphatase Total Protein Albumin Random Vancomycin 06/07/25 06/07/25 06/07/25 05:46 07:29 08:58 MCV 96.3 MCH 34.1 H MCHC 35.4 RDW 12.9 Plt Count 175 MPV 9.8 Immature Gran % (Auto) 0.5 H Neut % (Auto) 75.6 H Lymph % (Auto) 12.9 L Waldo % (Auto) 6.6 Eos % (Auto) 3.8 Baso % (Auto) 0.6 Lymph # (Auto) 1.3 Waldo # (Auto) 0.7 Eos # (Auto) 0.4 Baso # (Auto) 0.1 Abs Immat Gran (auto) 0.05 H Absolute Neuts (auto) 7.7 Absolute Nucleated RBC 0.000 Nucleated RBC % (auto) 0.0 Anion Gap 23 H Estim Creat Clear Calc 7.3 Estimated GFR 5 POC Glucose 111 Fasting Glucose 157 H Calcium 8.7 D Total Bilirubin 0.5 AST 13 ALT 6 Alkaline Phosphatase 83 Total Protein 7.0 Albumin 3.8 Random Vancomycin 19.4 06/07/25 11:00 MCV MCH MCHC RDW Plt Count MPV Immature Gran % (Auto) Neut % (Auto) Lymph % (Auto) Waldo % (Auto) Eos % (Auto) Baso % (Auto) Lymph # (Auto) Waldo # (Auto) Eos # (Auto) Baso # (Auto) Abs Immat Gran (auto) Absolute Neuts (auto) Absolute Nucleated RBC Nucleated RBC % (auto) Anion Gap Estim Creat Clear Calc Estimated GFR POC Glucose 171 H Fasting Glucose Calcium Total Bilirubin AST ALT Alkaline Phosphatase Total Protein Albumin Random Vancomycin Microbiology Microbiology Results: Microbiology 06/04/25 13:38 Blood Culture - Preliminary Blood - Venous No growth after 48 hours. 06/04/25 13:38 Blood Culture - Preliminary Blood - Venous No growth after 48 hours. Assessment and Plan (1) HTN (hypertension): Status: Acute (2) Diabetes type 2, controlled: Status: Acute (3) ESRD (end stage renal disease): Status: Acute (4) Osteomyelitis: Status: Acute Plan 70 year old male with pmhx significant for HTN, HLD, ESRD on HD M/W/F (last dialyzed today), DM with peripheral neuropathy presents to the ED today with left 2nd toe osteomyelitis. # Osteomyelitis left 2nd toe blood cultures Negative MRI left foot showing 2nd toe OM Continue Vancomycin with dialysis ID rec Vanco post dialysis, 1 gm for 6 weeks # End-stage renal disease on hemodialysis HD schedule MWF Follows with Dr. Mckeon consult Dr. Mckeon for ongoing hemodialysis and need of Vancomycin post HD # Diabetes type 2 states diet control. .. Last A1c 5.5 lispro correctional scale Diabetic diet # uncontrolled HTN BP elevated, not on any home medications Start Amlodipine and monitor Full code Heparin Patient will require overnight inpatient stay to treat osteomyelitis with IV antibiotics and obtain specialty consultation. This can not be achieved a lesser acute setting Quality Stroke Does the patient have a stroke diagnosis?: No VTE Prior VTE?: No VTE Risk Level:: Medical - moderate - high VTE Device Contraindication: Treatment Not Indicated VTE Drug Contraindication: N/A - Med Ordered
[2025-06-07 15:34] VITALS: BP 183/75; PULSE 66; RESP 16; TEMP 36.7; O2SAT 97
[2025-06-07 16:05] LABS: Glucose, Whole Blood 103 mg/dL (60-115)
[2025-06-07 20:00] VITALS: BP 126/63; PULSE 94; RESP 16; TEMP 36.8; O2SAT 97
[2025-06-07 21:32] LABS: Glucose, Whole Blood 155 mg/dL (60-115)
--- NOTE | 2025-06-07 22:48 | PC.NURSE ---
per message received from Pharmacy, no Vancomycin dose for this shift, random trough value was 14.9. Next trough scheduled for 06/08/25 at 1800
[2025-06-08 04:00] VITALS: BP 155/73; PULSE 83; RESP 18; TEMP 36.2; O2SAT 94
[2025-06-08 06:15] LABS: MANUAL DIFF FLAG NO
[2025-06-08 06:24] LABS: Hematocrit 31.3 % (42.0-52.0); Hemoglobin 10.8 g/dl (14.0-18.0); Imm Gran Abs Auto 0.04 X10*3/uL (0.00-0.03); Imm Gran Pct Auto 0.4 % (0.0-0.4); Lymphocytes Absolute Auto 1.3 X10*3/uL (1.2-4.9); Mean Corpuscular HGB Conc 34.5 g/dl (31.0-36.0); Mean Corpuscular Hemoglobin 33.2 pg (27.0-33.0); Mean Corpuscular Volume 96.3 fL (80.0-98.0); NRBC Abs Auto 0.000 X10*3/uL (0.0-0.012); NRBC Pct Auto 0.0 /100WBC (0.0-0.2); Platelet Count 170 X10*3/uL (160-400); Red Blood Count 3.25 X10*6/uL (4.60-5.80); White Blood Count 9.0 X10*3/uL (4.8-10.8)
[2025-06-08 06:38] LABS: Anion Gap 19 (12-20); Blood Urea Nitrogen 43 mg/dL (9-16); Calcium 8.8 mg/dL (8.4-10.2); Carbon Dioxide 27 mmol/L (22-29); Chloride 96 mmol/L (96-108); Creatinine Clr Calc Pharmacy 11.1; Estimated Glomerular Filt Rate 8; Potassium 4.8 mmol/L (3.3-5.1); Sodium 137 mmol/L (135-145)
[2025-06-08 07:46] LABS: Glucose, Whole Blood 140 mg/dL (60-115)
[2025-06-08] MEDS: Aspirin Enteric Coated 81 MG TABLET.DR PO (07:59)
[2025-06-08] MEDS: Sevelamer Carbonate Tablet 800 MG TABLET 1600 MG PO ×3 (08:00→16:08)
[2025-06-08] MEDS: Ketorolac Tromethamine 0.5% Op 5 ML DROPS 1 DROP EYE-LEFT ×2 (08:00→13:17)
[2025-06-08] MEDS: 0.9 % Sodium Chloride Flush 3 ML SYRINGE IVFLUSH ×2 (08:00→16:08)
[2025-06-08 08:04] VITALS: BP 153/78; PULSE 82; RESP 18; TEMP 36.9; O2SAT 95
--- NOTE | 2025-06-08 10:30 | PM.CNNEP ---
History of Present Illness Reason for Consult Consult date: 06/08/25 Chief Complaint Chief complaint: Osteomyelitis History of Present Illness Narrative: 70 y/o matimothy with ESRD on HD MWF, HTN, HLD, DM with peripheral neuropathy. presented 06/04/25 with concerns for left toe infection, being treated for osteomyelitis of left second toe. Nephrology consulted for management of ESRD on HD while hospitalized. Did not miss any HD sessions. Last dialyzed yesterday, 06/07. Retail Business Development Manager is Dr Mckeon. Patient resting comfortably at bedside. Review of Systems Constitutional: Reports no additional constitutional complaints Cardiovascular: Denies chest pain, Denies leg edema and Denies dyspnea Respiratory: Denies dyspnea Gastrointestinal: Denies abdominal pain Genitourinary: Denies dysuria Musculoskeletal: Denies back pain and Denies muscle cramps Skin/Breast: Denies rash Denies tremor(s) PMFSH Past Medical History Medical History HTN (hypertension) Hyperlipidemia ESRD (end stage renal disease) Family History Family history: reviewed and not pertinent Surgical History Surgical History H/O coronary artery bypass surgery Social History Social History Household Members: Family Housing: House Do you presently have visiting nurse or other home services: Yes ([employer].) Patient Tobacco Use Status: Former Tobacco user Advance Directives Date on File: 06/04/25 service: No Meds Allergies Allergy/AdvReac Type Severity Reaction Status Date / Time No Known Allergies Allergy Verified 06/04/25 11:50 Active Medications: Current Medications Acetaminophen (Acetaminophen 325 Mg Tablet) 650 mg PO Q6H PRN PRN Reason: Pain, Mild 1-3,fever,headache Amlodipine Besylate (Amlodipine Besylate 5 Mg Tablet) 5 mg PO DAILY [facility]; Protocol Last Admin: 06/08/25 07:59 Dose: 5 mg Aspirin (Aspirin Enteric Coated 81 Mg Tablet.) 81 mg PO DAILY [facility] Last Admin: 06/08/25 07:59 Dose: 81 mg Atorvastatin Calcium (Atorvastatin Calcium 40 Mg Tablet) 40 mg PO DAILY [facility] Last Admin: 06/08/25 07:59 Dose: 40 mg Calcium Carbonate (Calcium Carbonate 750 Mg Tab.Chew) 750 mg PO Q4H PRN PRN Reason: Heartburn Dextrose (Dextrose 50 % 25 Gm/50 Ml Syringe) 25 gm IVPUSH Q15M PRN; Protocol PRN Reason: per Hypoglycemia Standing Ord. Diphenhydramine HCl (Diphenhydramine Hcl 50 Mg/Ml Vial) 25 mg IVPUSH Q6H PRN PRN Reason: Itching Last Admin: 06/07/25 14:37 Dose: 25 mg Glucose (Glucose Gel 15 Gm Gel..Gram.) 15 gm PO Q15M PRN; Protocol PRN Reason: per Hypoglycemia Standing Ord. Heparin Sodium (Porcine) (Heparin Sodium,Porcine 5,000 Unit/Ml Vial) 5,000 unit SUBCUT Q12H [facility] Last Admin: 06/08/25 02:48 Dose: 5,000 unit Vancomycin HCl 500 mg/ Sodium (Chloride) 110 mls @ 110 mls/hr IV ONCE ONE Stop: 06/07/25 10:59 Insulin Human Lispro (Insulin Lispro 100 Unit/Ml 3 Ml Vial) 0 unit SUBCUT QIDACHS [facility]; Protocol Last Admin: 06/08/25 11:50 Dose: Not Given Ketorolac Tromethamine (Ketorolac Tromethamine 0.5% Op 5 Ml Drops) 1 drop EYE-LEFT QID [facility] Last Admin: 06/08/25 08:00 Dose: 1 drop Magnesium Hydroxide (Milk Of Magnesia 30 Ml Oral.Susp) 30 ml PO DAILY PRN PRN Reason: Constipation Last Admin: 06/05/25 09:04 Dose: 30 ml Melatonin (Melatonin 3 Mg Tablet) 6 mg PO BEDTIME PRN PRN Reason: Insomnia Ondansetron HCl (Ondansetron Hcl 4 Mg/2 Ml Vial) 4 mg IVPUSH Q8H PRN PRN Reason: Nausea and Vomiting Pharmacy Consult (Consult Rx Vancomycin Dosing) 1 each MISCELLANE DAILY PRN PRN Reason: Consult order Sevelamer Carbonate (Sevelamer Carbonate Tablet 800 Mg Tablet) 1,600 mg PO TIDAC [facility] Last Admin: 06/08/25 11:52 Dose: 1,600 mg Sodium Chloride (0.9 % Sodium Chloride Flush 3 Ml Syringe) 3 ml IVFLUSH QSHIFT [facility] Last Admin: 06/08/25 08:00 Dose: 3 ml Home Medications ?Medication ?Instructions ?Recorded ?Confirmed ?Last Taken ?Type aspirin 81 mg tablet,delayed 81 mg PO DAILY 06/04/25 06/04/25 06/04/25 09:00 History release atorvastatin 40 mg tablet 40 mg PO DAILY 06/04/25 06/04/25 06/04/25 09:00 History sevelamer carbonate 800 mg tablet 1,600 mg PO TIDAC 06/04/25 06/04/25 06/04/25 09:00 History ketorolac 0.5 % eye drops 1 drp ophthalmic-Left QID 06/05/25 06/05/25 Unknown History Physical Exam Vital Signs: Last Vital Signs Temp 98.4 F 06/08/25 08:04 Pulse 82 06/08/25 08:04 Resp 18 06/08/25 08:04 BP 153/78 H 06/08/25 08:04 Pulse Ox 95 06/08/25 08:04 O2 Del Method Room Air 06/08/25 08:04 BMI result Body Mass Index 25.8 Const General: alert, awake and acute distress Resp Effort & Inspection: normal respiratory effort Auscultation: clear to auscultation bilaterally Cardio Rate: regular rate Rhythm: regular rhythm Heart sounds: S1 normal heart sound present and S2 normal heart sound present GI Palpation (GI): Soft to palpation and nontender Skin Rashes: no rashes Extrem General: No edema Results Lab Results 06/08/25 05:55 06/08/25 05:55 Lab results: Chemistry 06/07/25 06/08/25 05:46 05:55 Sodium 134 L 137 Potassium 5.9 H 4.8 Carbon Dioxide 23 27 BUN 88 H 43 H Creatinine 10.18 H* 6.67 H* Calcium 8.7 D 8.8 Hematology 06/06/25 06/07/25 06/08/25 05:58 05:46 05:55 WBC 8.7 10.2 9.0 Hgb 10.8 L 10.9 L 10.8 L Plt Count 163 175 170 Assessment and Plan (1) ESRD (end stage renal disease): Status: Acute Plan ESRD on HD MWF will continue outpatient schedule- HD tomorrow AV fistula H&H 10.8 & 31.3, no indication for procrit at this time electrolytes within normal limits calcium 8.8, will check phos tomorrow low potassium, low sodium, low phosphorus diet fluid restriction 1.5L/[address] Figueroa Procedures Date of Service Date of Service: 06/08/25
--- NOTE | 2025-06-08 10:32 | P.CONGS_ITS ---
<Statement entered by Jacques Sam MD - 06/08/25 15:08> I have seen and evaluated the patient and agree with history, findings, assessment and plan documented by Christie Hernandez PA-c. History of Present Illness Consult details Consult date: 06/08/25 Narrative: We were consulted on Jordan, for concerns of a wound on the left 2nd toe. He presented to the ER on 06/04 with concerns of a possible injury to the left 2nd toe/wound. He has a medical hx pertinent for HTN, ESRD on HD MWF, HLD, DM, and peripheral neuropathy. He was found on toe XR to have acute osteo. He was admitted for IV Abx. He states he does not remember hitting/stubbing his toe, but it is possible. He states he has no feelings in his toes/feet. He does utilize a rolling walker at home. He denies any other wounds; he states the nurse at dialysis noted the wound and advised him to get checked out. He has no new concerns this morning. He does regularly see a Armature Balancer, he has an appt later this month. [facility] Past Medical History Medical History HTN (hypertension) Hyperlipidemia ESRD (end stage renal disease) Family History Family history: reviewed and not pertinent Surgical History Surgical History H/O coronary artery bypass surgery Social History Social History Household Members: Family Housing: House Do you presently have visiting nurse or other home services: Yes ([employer].) Patient Tobacco Use Status: Former Tobacco user Advance Directives Date on File: 06/04/25 service: No Meds Allergies Allergy/AdvReac Type Severity Reaction Status Date / Time No Known Allergies Allergy Verified 06/04/25 11:50 Active Medications: Current Medications Acetaminophen (Acetaminophen 325 Mg Tablet) 650 mg PO Q6H PRN PRN Reason: Pain, Mild 1-3,fever,headache Amlodipine Besylate (Amlodipine Besylate 5 Mg Tablet) 5 mg PO DAILY [facility]; Protocol Last Admin: 06/08/25 07:59 Dose: 5 mg Aspirin (Aspirin Enteric Coated 81 Mg Tablet.) 81 mg PO DAILY [facility] Last Admin: 06/08/25 07:59 Dose: 81 mg Atorvastatin Calcium (Atorvastatin Calcium 40 Mg Tablet) 40 mg PO DAILY [facility] Last Admin: 06/08/25 07:59 Dose: 40 mg Calcium Carbonate (Calcium Carbonate 750 Mg Tab.Chew) 750 mg PO Q4H PRN PRN Reason: Heartburn Dextrose (Dextrose 50 % 25 Gm/50 Ml Syringe) 25 gm IVPUSH Q15M PRN; Protocol PRN Reason: per Hypoglycemia Standing Ord. Diphenhydramine HCl (Diphenhydramine Hcl 50 Mg/Ml Vial) 25 mg IVPUSH Q6H PRN PRN Reason: Itching Last Admin: 06/07/25 14:37 Dose: 25 mg Glucose (Glucose Gel 15 Gm Gel..Gram.) 15 gm PO Q15M PRN; Protocol PRN Reason: per Hypoglycemia Standing Ord. Heparin Sodium (Porcine) (Heparin Sodium,Porcine 5,000 Unit/Ml Vial) 5,000 unit SUBCUT Q12H [facility] Last Admin: 06/08/25 02:48 Dose: 5,000 unit Vancomycin HCl 500 mg/ Sodium (Chloride) 110 mls @ 110 mls/hr IV ONCE ONE Stop: 06/07/25 10:59 Insulin Human Lispro (Insulin Lispro 100 Unit/Ml 3 Ml Vial) 0 unit SUBCUT QIDACHS [facility]; Protocol Last Admin: 06/08/25 07:44 Dose: Not Given Ketorolac Tromethamine (Ketorolac Tromethamine 0.5% Op 5 Ml Drops) 1 drop EYE- LEFT QID [facility] Last Admin: 06/08/25 08:00 Dose: 1 drop Magnesium Hydroxide (Milk Of Magnesia 30 Ml Oral.Susp) 30 ml PO DAILY PRN PRN Reason: Constipation Last Admin: 06/05/25 09:04 Dose: 30 ml Melatonin (Melatonin 3 Mg Tablet) 6 mg PO BEDTIME PRN PRN Reason: Insomnia Ondansetron HCl (Ondansetron Hcl 4 Mg/2 Ml Vial) 4 mg IVPUSH Q8H PRN PRN Reason: Nausea and Vomiting Pharmacy Consult (Consult Rx Vancomycin Dosing) 1 each MISCELLANE DAILY PRN PRN Reason: Consult order Sevelamer Carbonate (Sevelamer Carbonate Tablet 800 Mg Tablet) 1,600 mg PO TIDAC [facility] Last Admin: 06/08/25 08:00 Dose: 1,600 mg Sodium Chloride (0.9 % Sodium Chloride Flush 3 Ml Syringe) 3 ml IVFLUSH QSHIFT [facility] Last Admin: 06/08/25 08:00 Dose: 3 ml Home Medications ?Medication ?Instructions ?Recorded ?Confirmed ?Last Taken ?Type aspirin 81 mg tablet,delayed 81 mg PO DAILY 06/04/25 0 06/04/25 06/04/25 09:00 History release atorvastatin 40 mg tablet 40 mg PO DAILY 06/04/25 07/0 03/2606/04/25 09:00 History sevelamer carbonate 800 mg tablet 1,600 mg PO TIDAC 06/04/25 06/04/25 09:00 History ketorolac 0.5 % eye drops 1 drp ophthalmic-Left QID 06/05/25 Unknown History Physical Exam 2 Vital Signs: Vital Signs: Last Vital Signs Temp 98.4 F 06/08/25 08:04 Pulse 82 06/08/25 08:04 Resp 18 06/08/25 08:04 BP 153/78 H 06/08/25 08:04 Pulse Ox 95 06/08/25 08:04 O2 Del Method Room Air 06/08/25 08:04 BMI result Body Mass Index 25.8 Const: General: comfortable and no acute distress O rientation/consciousness: patient oriented x3 HEENT: Ears: hearing grossly normal bilaterally Resp: Effort & Inspection: normal respiratory effort and able to speak in complete sentences Auscultation: clear to auscultation bilaterally Cardio: Rate: regular rate Rhythm: regular rhythm Heart sounds: S1 normal heart sound present and S2 normal heart sound present Bruits: no abdominal aortic bruits, no carotid bruits, no femoral bruits and no renal bruits GI: Palpation (GI): No Abdominal aortic bruit present Neuro: General: patient oriented x3 Cranial nerves: Yes CN's II-XII intact bilaterally Extrem: Other: Left 2nd toe: scabbed over wound noted at the tip of the nail. No damage to the nail. Small surrounding area slight erythematous. No bleeding or drainage noted. Not painful to palpation. Left foot: strong palpable DP pulse. Results Labs 06/08/25 05:55 06/08/25 05:55 Labs: Abnormal lab results 06/07/25 06/07/25 06/07/25 Range/Units 11:00 21:27 21:44 RBC (4.60-5.80) X10*6/uL Hgb (14.0-18.0) g/dl Hct (42.0-52.0) % MCH (27.0-33.0) pg Neut % (Auto) (45-73) % Lymph % (Auto) (20-40) % Abs Immat Gran (auto) (0.00-0.03) X10*3/uL BUN (9-16) mg/dL Creatinine (0.5-1.4) mg/dL POC Glucose 171 H 155 H (60-115) mg/dL Random Glucose (60-115) mg/dL Random Vancomycin 14.9 L (15-20) mcg/mL 06/08/25 06/08/25 Range/Units 05:55 07:40 RBC 3.25 L (4.60-5.80) X10*6/uL Hgb 10.8 L (14.0-18.0) g/dl Hct 31.3 L (42.0-52.0) % MCH 33.2 H (27.0-33.0) pg Neut % (Auto) 75.3 H (45-73) % Lymph % (Auto) 14.3 L (20-40) % Abs Immat Gran (auto) 0.04 H (0.00-0.03) X10*3/uL BUN 43 H (9-16) mg/dL Creatinine 6.67 H* (0.5-1.4) mg/dL POC Glucose 140 H (60-115) mg/dL Random Glucose 163 H (60-115) mg/dL Random Vancomycin (15-20) mcg/mL Short CBC 06/08/25 Range/Units 05:55 WBC 9.0 (4.8-10.8) X10*3/uL Hgb 10.8 L (14.0-18.0) g/dl Hct 31.3 L (42.0-52.0) % Plt Count 170 (160-400) X10*3/uL BMP 06/08/25 05:55 Sodium 137 Potassium 4.8 Chloride 96 Carbon Dioxide 27 BUN 43 H Creatinine 6.67 H* Calcium 8.8 All other labs normal. Assessment and Plan (1) Osteomyelitis: Qualifiers: Laterality: left Osteomyelitis location: foot Osteomyelitis type: u nspecified type Qualified Code(s): M86.9 - Osteomyelitis, unspecified Status: Acute Plan We were consulted for Jordan, for concerns of a wound on the left 2nd toe. He was found on XR to have soft tissue thickening and osseous destruction concerning for acute osteo of the 2nd toe distal phalanx. MRI of the foot revealed osteo in the 2nd middle and distal phalanges. He was admitted for IV Abx, Vanco, to be given after HD tx. There is no acute vascular surgical intervention at this point. There is no wound care needed at this point; keep the area clean and dry. We will continue to monitor. If there are any questions or concerns, please do not hesitate to reach out to us. Procedures Date of Service Date of Service: 06/08/25
[2025-06-08 11:56] LABS: Glucose, Whole Blood 150 mg/dL (60-115)
[2025-06-08 13:12] LABS: Hemoglobin A1C 129.5058 umol/L; Total Hemoglobin (HGBA1C) 2905.9059 umol/L
--- NOTE | 2025-06-08 13:45 | PM.DS ---
DS: Providers Provider Date of Service: 06/08/25 Date of admission: 06/04/25 13:46 Date of discharge: 06/08/25 Primary care physician: Isabell Sheridan MD Consults: 06/04/25 14:46 Consult to Nephrology Routine Consulting Provider: Jimmy Mckeon Reason for consultation: End-stage renal disease on hemodialysis. Has provider been notified: No 06/06/25 12:42 Consult to Infectious Diseases Routine Consulting Provider: [facility] Reason for consultation: osteomyelitis Has provider been notified: No 06/07/25 13:15 Consult to Vascular Surgery Routine Consulting Provider: [facility] Reason for consultation: osteomyelitis in left 2nd toe; establishment of care Attending physician on discharge: Joan Simental Discharging clinician: Joan Simental DS: Diagnosis Discharge Diagnosis (1) ESRD (end stage renal disease): Status: Acute DS: Summary Hospital Course Hospital Course: HPi: 70 year old male with pmhx significant for HTN, HLD, ESRD on HD M/W/F (last dialyzed today), DM with peripheral neuropathy presents to the ED today with concerns for left toe infection. 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 Patient states that due to his neuropathy he did not feel anything unusual. He does not recount any fall or injury to the toe. In the emergency room, workup consistent acute osteomyelitis in the backdrop of type 2 diabetes. Hospital course: 70 year old male with pmhx significant for HTN, HLD, ESRD on HD M/W/F (last dialyzed today), DM with peripheral neuropathy presents to the ED today with left 2nd toe osteomyelitis. Osteomyelitis left 2nd toe blood cultures Negative MRI left foot showing 2nd toe OM Continue Vancomycin with dialysis ID rec Vanco post dialysis, 1 gm for 6 weeks,d/w [facility] patient has slow vanco clearence -adjusted vanco 750 mg with hd (,,)-Adjust dosing per vanco trough. End-stage renal disease on hemodialysis HD schedule MWF Follows with Dr. Mckeon consult Dr. Mckeon for ongoing hemodialysis and need of Vancomycin post HD Diabetes type 2 states diet control. .. Last A1c 6.2 in january and during this admission. not on any dm med at home Diabetic diet, monitor fingersticks closely and further management outpatient. uncontrolled HTN BP elevated, not on any home medications Added amlodipine , monitor blood pressure closely outpatient ,need further adjustment amlodipine outpatient. plan: foot osetolyelitis 750 mg iv after Hd,Adjust vanco dosing per vanco trough- need 6 week antibiotics-end date 07/19. moniter cbc,cmp ,esr,crp qweekly. dm Hba1c 6.2 in . currently not on dm meds.moniter fs closely at home ,may consider insulin outpatient per pcp. htn -added amlodipine 5 mg po daily. Above management discussed with the patient detail length he understand in agreement with the plan, time spent 40 minute, staff was present during conversation, all question answered. Time Attestation Total time managing care of this patient today: 40 mintues. Discharge Coordination Time (in mins): 40 min Quality: Safe Use of Opioids Does Pt have an Active Cancer Diagnosis on the Problem List?: No Quality: Stroke Does the patient have a stroke diagnosis?: No Physical Exam Vital Signs: Vital Signs: Last Vital Signs Temp 98.4 F 06/08/25 08:04 Pulse 82 06/08/25 08:04 Resp 18 06/08/25 08:04 BP 153/78 H 06/08/25 08:04 Pulse Ox 95 06/08/25 08:04 O2 Del Method Room Air 06/08/25 08:04 BMI result Body Mass Index 25.8 Appearance: Alert.? Oriented X3.? cvs: rrr, [id number]. res: clear to auscultation ,no rhonchii or wheezing abd: no rebound or guarding ,nt, bs present. ext pulses present , no cyanosis. neuro: axo3 , nonfocal. DS: Data Data Completed and Pending Labs on day of discharge: Laboratory Results - last 24 hr 06/07/25 06/07/25 06/07/25 16:00 21:27 21:44 WBC RBC Hgb Hct MCV MCH MCHC RDW Plt Count MPV Immature Gran % (Auto) Neut % (Auto) Lymph % (Auto) Delta % (Auto) Eos % (Auto) Baso % (Auto) Lymph # (Auto) Delta # (Auto) Eos # (Auto) Baso # (Auto) Abs Immat Gran (auto) Absolute Neuts (auto) Absolute Nucleated RBC Nucleated RBC % (auto) Sodium Potassium Chloride Carbon Dioxide Anion Gap BUN Creatinine Estim Creat Clear Calc Estimated GFR POC Glucose 103 155 H Random Glucose Estimat Average Glucose Hemoglobin A1c % Calcium Random Vancomycin 14.9 L 06/08/25 06/08/25 06/08/25 05:55 07:40 11:48 WBC 9.0 RBC 3.25 L Hgb 10.8 L Hct 31.3 L MCV 96.3 MCH 33.2 H MCHC 34.5 RDW 13.1 Plt Count 170 MPV 9.4 Immature Gran % (Auto) 0.4 Neut % (Auto) 75.3 H Lymph % (Auto) 14.3 L Delta % (Auto) 6.5 Eos % (Auto) 3.1 Baso % (Auto) 0.4 Lymph # (Auto) 1.3 Delta # (Auto) 0.6 Eos # (Auto) 0.3 Baso # (Auto) 0.0 Abs Immat Gran (auto) 0.04 H Absolute Neuts (auto) 6.8 Absolute Nucleated RBC 0.000 Nucleated RBC % (auto) 0.0 Sodium 137 Potassium 4.8 Chloride 96 Carbon Dioxide 27 Anion Gap 19 BUN 43 H Creatinine 6.67 H* Estim Creat Clear Calc 11.1 Estimated GFR 8 POC Glucose 140 H 150 H Random Glucose 163 H Estimat Average Glucose 131 Hemoglobin A1c % 6.2 H Calcium 8.8 Random Vancomycin Preliminary micro results at discharge 06/04/25 13:38 Blood Culture - Preliminary Blood - Venous No growth after 48 hours. 06/04/25 13:38 Blood Culture - Preliminary Blood - Venous No growth after 48 hours. Discharge Plan Discharge Anticipated Discharge Date/Time: 06/08/25 12:35 Patient Disposition: Home, Self-Care Discharge Diagnosis: osteomyelitis Referrals: Isabell Sheridan MD [Primary Care Provider, Primary Care] - 1 Week Discharge Medications: New amlodipine 5 mg Tablet 5 mg PO DAILY Qty: 90 0RF Protocol: Hold for SBP< HOLD for SBP < : 90 vancomycin in 0.9 % sodium chl 750 mg/150 mL piggyback 750 mg IV Q48H Rx Instructions: use vanco 750 mg iv after HD(Saturday) -adjust dosing per felice, end date 07/19. Continued atorvastatin 40 mg tablet 40 mg PO DAILY aspirin 81 mg tablet,delayed release (DR/EC) 81 mg PO DAILY sevelamer carbonate 800 mg tablet 1,600 mg PO TIDAC ketorolac 0.5 % drops 1 drp ophthalmic-Left QID Discharge Orders: Discharge Order (Routine); Ordered 06/08/25 Ordered By: Joan Simental Diet: Advance to usual diet Activity on Discharge: As tolerated Stand Alone Forms: Patient Portal Discharge page Print Language: Danish Care Plan Goals: as below. Health Concerns: foot osetolyelitis 750 mg iv after Hd,Adjust vanco dosing per vanco trough- need 6 week antibiotics-end date 07/19. moniter cbc,cmp ,esr,crp qweekly. dm Hba1c 6.2 in . currently not on dm meds.moniter fs closely at home ,may consider insulin outpatient per pcp. htn -added amlodipine 5 mg po daily. Plan of Treatment: as above. Assessment: as above.
[2025-06-08 15:45] VITALS: BP 157/70; PULSE 71; RESP 18; TEMP 36.2; O2SAT 97
[2025-06-08 16:33] LABS: Glucose, Whole Blood 131 mg/dL (60-115)
--- NOTE | 2025-06-09 12:12 | P.CDIM_ITS ---
PROVIDER RESPONSE TEXT: To clarify, the appropriate diagnosis supported by the clinical indicators: Acute osteomyelitis QUERY TEXT: PHYSICIAN'S DOCUMENTATION REQUEST Date of Query: 06/09/2025 05:38 AM EDT Patient Name: Jordan Valdovinos Admit Date: 06/04/2025 Dear Joan Simental MD, RETROSPECTIVE QUERY A review of the medical record indicates additional documentation may be needed. Please review below and update the documentation accordingly. Clinical Indicators: Progress notes - Osteomyelitis left 2nd toe MRI left foot showing 2nd toe OM Continue Vancomycin 750 mg IV after HD, adjust vancomycin dosing per vancomycin trough - need 6 weeks antibiotics. Based on the above, please clarify in the Progress Notes further specificity regarding the acuity of the Osteomyelitis left 2nd toe: Acute osteomyelitis Subacute osteomyelitis Chronic osteomyelitis Other specified Other (explain) Clinically unable to determine (explain) Thank you, Edilia Roberts, CCS, CDIS Use of terms such as suspected, likely, concern for, or probable (associated with a specific diagnosis that is being evaluated, monitored, or treated as if it exists) are acceptable and can be coded in the inpatient setting, when documented at the time of discharge. Please use your independent medical judgment in providing your response. THIS QUERY IS PART OF THE PERMANENT MEDICAL RECORD
== END 2025-06-08 17:11 | disposition home or self-care (01) | DRG 638 ==
LOC: HO.ED 11:55 → HO.EDOVER 13:46 → HO.S3 15:05
PROVIDERS: Physician Assistant Medical; Student in an Organized Health Care Education/Training Program; Admitting Provider Hospitalist; Emergency Provider Emergency Medicine Emergency Medical Services; PCP Student in an Organized Health Care Education/Training Program; Visit Provider Internal Medicine
DX: E11.69 Type 2 diabetes mellitus with other specified complication (principal); I12.0 Hypertensive chronic kidney disease with stage 5 chronic kidney disease or end stage renal disease; M86.172 Other acute osteomyelitis, left ankle and foot; I25.10 Atherosclerotic heart disease of native coronary artery without angina pectoris; E11.22 Type 2 diabetes mellitus with diabetic chronic kidney disease; N18.6 End stage renal disease; E11.42 Type 2 diabetes mellitus with diabetic polyneuropathy; Z99.2 Dependence on renal dialysis; Z95.1 Presence of aortocoronary bypass graft; Z87.891 Personal history of nicotine dependence; Z79.82 Long term (current) use of aspirin; Z79.899 Other long term (current) drug therapy
CPT/HCPCS: 36415; 73660; 73720; 80048; 80053; 80202; 82947; 83036; 83605; 85025; 85652; 86140; 87040; 90999; 99285; A9585; J1200; J1644; J2543; J3373

== ENCOUNTER → 2025-06-04 12:09 | Outpatient (BNV) | payer MEDICARE, MEDICAID, SELFPAY | PROVIDERS: Admitting Provider Hospitalist; Emergency Provider Emergency Medicine Emergency Medical Services; PCP Student in an Organized Health Care Education/Training Program; Visit Provider Radiology Diagnostic Radiology | DX: E78.5 Hyperlipidemia, unspecified (principal) | CPT/HCPCS: 73660 ==

== ENCOUNTER 2025-06-04 13:46 | Outpatient (BNV) | payer MEDICARE, OTHER, SELFPAY | END 2025-06-06 12:10 | PROVIDERS: Admitting Provider Hospitalist; Emergency Provider Emergency Medicine Emergency Medical Services; PCP Student in an Organized Health Care Education/Training Program; Visit Provider Radiology Diagnostic Radiology | DX: M86.8X7 Other osteomyelitis, ankle and foot (principal) | CPT/HCPCS: 73720 ==

== ENCOUNTER → 2025-06-04 13:46 | Outpatient (BNV) | payer MEDICARE, OTHER, SELFPAY | PROVIDERS: Admitting Provider Hospitalist; Emergency Provider Emergency Medicine Emergency Medical Services; PCP Student in an Organized Health Care Education/Training Program; Visit Provider Nurse Practitioner Family | DX: N18.6 End stage renal disease (principal) | CPT/HCPCS: 99221 ==

== ENCOUNTER → 2025-06-04 13:46 | Outpatient (BNV) | payer MEDICARE, MEDICAID, SELFPAY | PROVIDERS: Admitting Provider Hospitalist; Emergency Provider Emergency Medicine Emergency Medical Services; PCP Student in an Organized Health Care Education/Training Program; Visit Provider Hospitalist | DX: I12.0 Hypertensive chronic kidney disease with stage 5 chronic kidney disease or end stage renal disease (principal); E11.9 Type 2 diabetes mellitus without complications; N18.6 End stage renal disease; M86.9 Osteomyelitis, unspecified | CPT/HCPCS: 99223; 99232; 99239 ==

== ENCOUNTER → 2025-06-04 13:46 | Outpatient (BNV) | payer MEDICARE, OTHER, SELFPAY | PROVIDERS: Admitting Provider Hospitalist; Emergency Provider Emergency Medicine Emergency Medical Services; PCP Student in an Organized Health Care Education/Training Program; Visit Provider Physician Assistant Surgical | DX: M86.9 Osteomyelitis, unspecified (principal) | CPT/HCPCS: 99222 ==

== ENCOUNTER → 2025-06-04 13:46 | Outpatient (BNV) | payer MEDICARE, OTHER, SELFPAY | PROVIDERS: Admitting Provider Hospitalist; Emergency Provider Emergency Medicine Emergency Medical Services; PCP Student in an Organized Health Care Education/Training Program; Visit Provider Internal Medicine | DX: N18.6 End stage renal disease (principal); Z99.2 Dependence on renal dialysis; M86.9 Osteomyelitis, unspecified | CPT/HCPCS: 99232 ==

== ENCOUNTER 2025-07-19 05:29 | Emergency (ER) | payer MEDICARE, OTHER, SELFPAY ==
--- NOTE | ~2025-07-19 | XR_ITS ---
EXAMINATION: XR HIP 2 OR MORE VIEWS RIGHT HISTORY: pain COMPARISON: There are no prior studies available for comparison. FINDINGS: A single AP view of the pelvis and two views of the right hip are submitted. Osseous mineralization is normal. There is no fracture or dislocation. There is mild joint space narrowing. There are extensive vascular calcifications. XR/XR hip RT min 2V IMPRESSION: Mild joint space narrowing. Electronically signed by: Nguyễn Castellanos MD 07/19/2025 08:53 AM EDT
[2025-07-19 05:35] VITALS: BP 192/84; PULSE 96; RESP 18; TEMP 37; O2SAT 97; BMI 26.3
[2025-07-19 05:42] VITALS: BP 192/84; PULSE 92; RESP 16; TEMP 36.5; O2SAT 98
[2025-07-19 06:49] LABS: MANUAL DIFF FLAG NO
[2025-07-19 06:51] LABS: Hematocrit 31.1 % (42.0-52.0); Hemoglobin 10.8 g/dl (14.0-18.0); Imm Gran Abs Auto 0.07 X10*3/uL (0.00-0.03); Imm Gran Pct Auto 0.6 % (0.0-0.4); Lymphocytes Absolute Auto 1.4 X10*3/uL (1.2-4.9); Mean Corpuscular HGB Conc 34.7 g/dl (31.0-36.0); Mean Corpuscular Hemoglobin 33.5 pg (27.0-33.0); Mean Corpuscular Volume 96.6 fL (80.0-98.0); NRBC Abs Auto 0.000 X10*3/uL (0.0-0.012); NRBC Pct Auto 0.0 /100WBC (0.0-0.2); Platelet Count 184 X10*3/uL (160-400); Red Blood Count 3.22 X10*6/uL (4.60-5.80); White Blood Count 11.7 X10*3/uL (4.8-10.8)
--- NOTE | 2025-07-19 06:52 | PC.NURSE ---
This Rn assumed care of patient @ 0700. Patient c/o left groin pain non radiating, no pain while laying in bed but 8/10 on movement Denies SOB, fever, numbness, tingling, and injury Dialysis patient MWF fistula in left arm + bruit thrill Blood collected and sent Provider in to see patient Plan of care on going
--- NOTE | 2025-07-19 06:52 | ED.EXTPRO ---
HPI - Extremity Problem General Chief complaint: Extremity Problem Stated complaint: Groin pain Time Seen by Provider: 07/19/25 06:47 Source: patient and old records reviewed Mode of arrival: ambulatory Limitations: no limitations History of Present Illness ED Provider: KARAN HALL Narrative: 70 yo male with PMH of DM, CAD s/p CABG, ESRD MWF last session Saturday, HTN, who notes he has R hip pain with walking x 3 day. He denies rash, fevers. He has no abd pain, n/v/d. He states he still makes urine and it seems normal to him. He states it hurts whenever he walks. He denies mass/bumps in groin. He has no back pain MD Complaint: extremity pain Onset (ago): day(s) (3) Pain Consistency: intermittent Location: right and lower extremity Quality: aching Radiation: none Relieving factors: nothing Exacerbating factors: walking Associated symptoms: denies other symptoms Related Data Home Medications ?Medication ?Instructions ?Recorded ?Confirmed aspirin 81 mg tablet,delayed 81 mg PO DAILY 06/04/25 06/04/25 release atorvastatin 40 mg tablet 40 mg PO DAILY 06/04/25 06/04/25 sevelamer carbonate 800 mg tablet 1,600 mg PO TIDAC 06/04/25 06/04/25 ketorolac 0.5 % eye drops 1 drp ophthalmic-Left QID 06/05/25 06/05/25 Previous Rx's ?Medication ?Instructions ?Recorded amlodipine 5 mg tablet 5 mg PO DAILY #90 tabs 06/08/25 vancomycin 750 mg/150 mL in 0.9% 750 mg (150 mL) IV Q48H 06/08/25 sodium chloride intravenous piggyback Allergies Allergy/AdvReac Type Severity Reaction Status Date / Time No Known Allergies Allergy Verified 07/19/25 05:37 Review of Systems Review of Systems: Constitutional : No Fever, No Chills ENT/Mouth : No Ear Pain, No Hoarseness, No sore throat Eyes: No Eye Pain, No Swelling, No Redness, No Foreign Body Cardiovascular : No Chest Pain, No SOB Respiratory : No Cough, No Dyspnea Gastrointestinal : No Nausea, No Vomiting, No Diarrhea, No abdominal Pain Genitourinary : No Dysuria, No Hematuria Musculoskeletal : positive joint pain, No Myalgias, No Joint Swelling Skin : No Skin lacerations, No rash Neuro : No Weakness, No Numbness All other systems reviewed and are negative [facility] Past Medical History Attestation statement: The following information was validated with the patient. Source: old records reviewed Medical History HTN (hypertension) Hyperlipidemia ESRD (end stage renal disease) Surgical History H/O coronary artery bypass surgery Social History Social History Household Members: Family Housing: House Do you presently have visiting nurse or other home services: Yes ([employer].) Patient Tobacco Use Status: Former Tobacco user Smoked in Last 30 Days: No Use of substances other than those prescribed or required for medical reasons: No Advance Directives: Yes Advance Directives on File: Yes Advance Directives Date on File: 06/04/25 Do you have a plan to hurt others: No Plan service: No Physical Exam Vital Signs: Vital Signs: Last Vital Signs Temp 97.7 F 07/19/25 05:42 Pulse 92 07/19/25 05:42 Resp 16 07/19/25 05:42 BP 192/84 H 07/19/25 05:42 Pulse Ox 98 07/19/25 05:42 O2 Del Method Room Air 07/19/25 05:42 BMI result Body Mass Index 26.3 Appearance: Alert. Oriented X3. No acute distress. Eyes: Pupils equal, round and reactive to light. ENT: Pharynx normal. Neck: Normal inspection. Neck supple. CVS: Normal heart rate and rhythm. Pulses normal. Respiratory: No respiratory distress. Breath sounds normal. Abdomen: Soft and nontender. no mass felt in R groin ttp along R hip pain inguinal area distal NV intact, no rash noted, no lymph nodes, normal exam Skin: Skin warm and dry. Normal skin color. Normal skin turgor. Extremities: No lower extremity edema. No calf ttp Neuro: Oriented X 3. No motor deficit. No sensory deficit. Medications Administered Discontinued Medications Generic Name Dose Route Start Last Admin Trade Name Freq PRN Reason Stop Dose Admin Oxycodone HCl 5 mg 07/19/25 07:00 07/19/25 07:12 Oxycodone Hcl Immed Release 5 Mg Tablet PO 07/19/25 07:01 5 mg ONCE ONE Administration Sodium Zirconium Cyclosilicate 5 gm 07/19/25 07:24 07/19/25 08:00 Sodium Zirconium Cyclosilicate 5 Gm Powd.Pack PO 07/19/25 07:25 5 gm ONCE ONE Administration Medical Decision Making Medical Decision Making [facility] Narrative: 70 yo male with PMH of DM, ESRD MWF last session Saturday, HTN, now here with 3 days of R groin pain but no signs of hernia and no signs of infection. He has no fevers. He will need labs, EKG, and given missed HD will need to involve CM for possible delay in HD today. I have ordered pain medications. Possible arthritis, bursitis, tendonitis, fracture Differential Diagnosis Differential Diagnoses: The differential diagnosis associated with the presentation includes arthritis, bursitis, tendonitis, fracture Admission/Observation Consideration of admission/observation: Escalation of care including admission/observation considered WORK UP NEGATIVE STABLE FOR DC HAS HD AT 930AM Lab Data [facility] Lab Attestation statement: I reviewed the patient's lab results. 07/19/25 06:44 07/19/25 06:44 Labs: Lab Results 07/19/25 Range/Units 06:44 WBC 11.7 H (4.8-10.8) X10*3/uL RBC 3.22 L (4.60-5.80) X10*6/uL Hgb 10.8 L (14.0-18.0) g/dl Hct 31.1 L (42.0-52.0) % MCV 96.6 (80.0-98.0) fL MCH 33.5 H (27.0-33.0) pg MCHC 34.7 (31.0-36.0) g/dl RDW 13.1 (11.0-16.0) % Plt Count 184 (160-400) X10*3/uL MPV 8.9 L (9.4-12.4) fL Immature Gran % (Auto) 0.6 H (0.0-0.4) % Neut % (Auto) 75.2 H (45-73) % Lymph % (Auto) 11.9 L (20-40) % [place] % (Auto) 8.0 (2-11) % Eos % (Auto) 3.8 (0-4) % Baso % (Auto) 0.5 (0-2) % Lymph # (Auto) 1.4 (1.2-4.9) X10*3/uL [place] # (Auto) 0.9 (0.1-1.2) X10*3/uL Eos # (Auto) 0.4 (0.0-0.4) X10*3/uL Baso # (Auto) 0.1 (0.0-0.2) X10*3/uL Abs Immat Gran (auto) 0.07 H (0.00-0.03) X10*3/uL Absolute Neuts (auto) 8.8 H (2.0-8.3) x10*3/uL Absolute Nucleated RBC 0.000 (0.0-0.012) X10*3/uL Nucleated RBC % (auto) 0.0 (0.0-0.2) /100WBC Sodium 139 (135-145) mmol/L Potassium 5.5 H (3.3-5.1) mmol/L Chloride 94 L (96-108) mmol/L Carbon Dioxide 23 (22-29) mmol/L Anion Gap 28 H (12-20) BUN 93 H (9-16) mg/dL Creatinine 10.59 H* (0.5-1.4) mg/dL Estim Creat Clear Calc 6.8 Estimated GFR 5 Random Glucose 156 H (60-115) mg/dL Calcium 9.1 (8.4-10.2) mg/dL Total Bilirubin 0.5 (0.0-1.0) mg/dL AST 18 (5-37) U/L ALT 11 (0-40) U/L Alkaline Phosphatase 94 (39-117) U/L Total Creatine Kinase 30 L (38-174) U/L Total Protein 7.5 (6.5-8.0) g/dL Albumin 4.0 (3.5-5.0) g/dL Independent Interpretation I performed an independent interpretation of an: EKG and Plain X-Ray (arthritis) Interpretation: Rate: 83 Rhythm: NSR [place]: left Normal P waves. Normal JESSIE. Normal QRS complex. ST T wave : normal no QUINTEN, some nonspecific ST T wave changes in lateral leads qTC: 495 prior studies: no acute ischemia The study has been interpreted contemporaneously by me. . Radiology Impression Discussion of test interpretation with radiology: I have reviewed the radiologist's reading. Independent Historian Clinical information obtained from an independent historian. History obtained from or confirmed by: Spouse External Record Review External record reviewed: Outpatient record Discharge Plan Discharge Clinical Impression: Right groin pain Patient Disposition: Home, Self-Care Instructions: Pelvic Pain (ED) Additional Instructions: labs reassuring xray shows arthritis/narrowing of joint space but no broken bones take tylenol as needed for pain return for any rash, numbness, weakness or any other concerns. dialysis has a slot at 930 for you Prescriptions: No Action atorvastatin 40 mg tablet 40 mg PO DAILY aspirin 81 mg tablet,delayed release (DR/EC) 81 mg PO DAILY sevelamer carbonate 800 mg tablet 1,600 mg PO TIDAC ketorolac 0.5 % drops 1 drp ophthalmic-Left QID amlodipine 5 mg Tablet 5 mg PO DAILY Qty: 90 0RF Protocol: Hold for SBP< HOLD for SBP < : 90 vancomycin in 0.9 % sodium chl 750 mg/150 mL piggyback 750 mg IV Q48H Rx Instructions: use vanco 750 mg iv after HD(Saturday) -adjust dosing per felice, end date 07/19. Print Language: Chinese
--- NOTE | 2025-07-19 07:11 | ECG_ITS ---
Test Reason : MISSED HD Blood Pressure : */* mmHG Vent. Rate : 83 BPM Atrial Rate : 83 BPM P-R Int : 190 ms QRS Dur : 106 ms QT Int : 422 ms P-R-T Axes : 37 -27 45 degrees QTcB Int : 495 ms Normal sinus rhythm with sinus arrhythmia Possible Left atrial enlargement Prolonged QT Abnormal ECG No previous ECGs available Referred By: Roselia Potter Electronically Signed By: MARYJO SANTOS MD
[2025-07-19] MEDS: oxyCODONE HCl Immed Release 5 MG TABLET PO (07:12)
[2025-07-19 07:19] LABS: Alanine Aminotransferase 11 U/L (0-40); Albumin Level 4.0 g/dL (3.5-5.0); Alkaline Phosphatase 94 U/L (39-117); Anion Gap 28 (12-20); Aspartate Amino Transferase 18 U/L (5-37); Blood Urea Nitrogen 93 mg/dL (9-16); Calcium 9.1 mg/dL (8.4-10.2); Carbon Dioxide 23 mmol/L (22-29); Chloride 94 mmol/L (96-108); Creatinine Clr Calc Pharmacy 6.8; Estimated Glomerular Filt Rate 5; Potassium 5.5 mmol/L (3.3-5.1); Sodium 139 mmol/L (135-145); Total Protein 7.5 g/dL (6.5-8.0)
[2025-07-19 09:24] VITALS: BP 159/82; PULSE 77; RESP 16; TEMP 36.5; O2SAT 98
[2025-07-19] MEDS: Lidocaine 4 % Cream KIT 1 APPL TOPICAL (09:24)
== END 2025-07-19 09:26 | disposition home or self-care (01) ==
PROVIDERS: Student in an Organized Health Care Education/Training Program; Emergency Provider Emergency Medicine
DX: R10.30 Lower abdominal pain, unspecified (principal); M25.551 Pain in right hip; I25.10 Atherosclerotic heart disease of native coronary artery without angina pectoris; Z95.1 Presence of aortocoronary bypass graft; E11.22 Type 2 diabetes mellitus with diabetic chronic kidney disease; I12.0 Hypertensive chronic kidney disease with stage 5 chronic kidney disease or end stage renal disease; N18.6 End stage renal disease; Z79.899 Other long term (current) drug therapy
CPT/HCPCS: 36415; 73502; 80053; 82550; 85025; 85652; 86140; 93005; 99283; 99285

== ENCOUNTER → 2025-07-19 07:00 | Outpatient (BNV) | payer MEDICARE, OTHER, SELFPAY | PROVIDERS: Emergency Provider Emergency Medicine; Visit Provider Radiology Diagnostic Radiology | DX: M16.11 Unilateral primary osteoarthritis, right hip (principal) | CPT/HCPCS: 73502 ==

== ENCOUNTER → 2025-07-19 07:11 | Outpatient (BNV) | payer MEDICARE, OTHER, SELFPAY | PROVIDERS: Emergency Provider Emergency Medicine; Visit Provider Internal Medicine Cardiovascular Disease | DX: I45.81 Long QT syndrome (principal) | CPT/HCPCS: 93010 ==

== ENCOUNTER 2025-09-17 15:49 | Inpatient (IN) | payer MEDICARE, OTHER, SELFPAY ==
[2025-09-17] VITALS (8 sets, daily range): BP systolic 80–113; BP diastolic 49–62; PULSE 89–104; RESP 13–20; TEMP 36.3–36.9; O2SAT 94–99; BMI 25.1; BMI 24.0
--- NOTE | ~2025-09-17 | CT_ITS ---
CLINICAL HISTORY: weakness, diffuse pain CT head without contrast Comparison: 04/08/25 Findings: No acute hemorrhage. Basal ganglia calcifications. No extra-axial fluid collection. No hydrocephalus, mass-effect or herniation. Clements-white differentiation is maintained. There is patchy hypoattenuation of the periventricular and deep white matter, which is most likely the sequela of moderate chronic small vessel ischemic disease and is similar to the prior study. Unchanged encephalomalacia in the left occipital lobe in the posterior cerebral artery territory. No acute orbital pathology. No acute soft tissue abnormality. No fracture. Mucosal thickening in the left maxillary sinus, which is also present on the prior study, currently without foamy secretions. The other visualized paranasal sinuses are predominantly clear. The mastoid air cells are clear. Impression: No acute intracranial findings. This document has been electronically signed by: Citlalli Pagan MD on 09/17/2025 17:36:17
--- NOTE | ~2025-09-17 | XR_ITS ---
CLINICAL HISTORY: cough --- Additional Notes or Special Instructions: COME BACK IN 1716 -GG 2 view chest x-ray Comparison: None provided Findings: Small loculated appearing left-sided pleural effusion. Consolidation within the left lower lung. Multiple scattered foci of calcified pleural plaque formation. Mildly enlarged heart. Prior sternotomy. No acute fracture. IMPRESSION: 1. Small loculated left pleural effusion. 2. Atelectasis versus pneumonia within the left lower lung. This document has been electronically signed by: Christie Godoy MD on 09/17/2025 18:19:41
--- NOTE | ~2025-09-17 | CT_ITS ---
CLINICAL HISTORY: diffuse abd pain, CT abdomen with 80% stenosis SMA CT angiography abdomen and pelvis with contrast. 3-D post processing. Comparison: CT/SR - CT ABDOMEN PELVIS WO IV CON - 09/17/25 18:04 EDT Findings: Moderate calcified atherosclerotic disease of the abdominal aorta. The lung bases are clear. Moderate bilateral renal atrophy. No bowel obstruction, pneumoperitoneum, or pneumatosis. The appendix is within normal limits. The prostate is hypertrophic. No acute fracture. The celiac, single left and right renal arteries and BERE are patent. Severe calcified atherosclerotic disease of the proximal SMA with greater than 90% focal stenosis, axial image number 31 of 104 series 4, sagittal image number 64 of 136 series 7, proximally 1.8 cm distal from its origin. Greater than 80% stenosis of the proximal left and right renal arteries with superimposed moderate to severe calcified atherosclerotic disease. Lumbar dextroscoliosis. IMPRESSION: 1. Greater than 80% stenosis of the proximal left and right renal arteries with superimposed moderate to severe calcified atherosclerotic disease. 2. Greater than 90% focal stenosis of the SMA, 1.8 cm distal from its origin with superimposed severe calcified atherosclerotic disease. 3. Hypertrophic prostate. 4. Lumbar dextroscoliosis. 5. Moderate calcified atherosclerotic disease of the abdominal aorta. 6. Moderate bilateral renal atrophy. This document has been electronically signed by: Donnie Lozoya MD on 09/17/2025 23:38:45
--- NOTE | ~2025-09-17 | CT_ITS ---
CLINICAL HISTORY: abd pain CT abdomen and pelvis without contrast Comparison: None provided Findings: Small left pleural effusion. Left lower lobe near-complete atelectasis with air bronchograms. Cardiomegaly. Greater than 80% stenosis of the proximal left and right renal arteries. No bowel obstruction, pneumoperitoneum, or pneumatosis. Calcified coronary atherosclerotic disease. Moderate to severe calcified atherosclerotic disease of the abdominal aorta and aortoiliac vessels. Diverticulosis. The prostate is hypertrophic. Left inguinal hernia with adipose tissue in lumen, 2.4 cm transverse by 1.7 cm AP by 9.[address] evidence of incarceration or strangulation. Mexq-zj-kmtrlhrn osteopenia. Prior sternotomy. Lumbar dextroscoliosis. Greater than 80% stenosis of the origin of the SMA. L1-2 and L2-3 severe DJD. Lumbar dextroscoliosis. IMPRESSION: 1. Left lower lobe near-complete atelectasis with air bronchograms and small left pleural effusion. Short-term follow-up is suggested. 2. Greater than 80% stenosis of the proximal left and right renal arteries. Consider CT angiogram of the abdominal aorta. 3. Greater than 80% stenosis of the origin of the SMA. Consider CT angiogram of the abdominal aorta. 4. Moderate to severe calcified atherosclerotic disease of the abdominal aorta and aortoiliac vessels. 5. Cardiomegaly. 6. Left inguinal hernia containing adipose tissue, measuring 2.4 x 1.7 x 9.4 cm, without CT evidence of incarceration or strangulation. 7. L1-2 and L2-3 severe degenerative joint disease. 8. Lumbar dextroscoliosis. This document has been electronically signed by: Donnie Lozoya MD on 09/17/2025 18:30:54
--- NOTE | 2025-09-17 16:05 | ECG_ITS ---
Test Reason : HYPOTENSIVE Blood Pressure : */* mmHG Vent. Rate : 96 BPM Atrial Rate : 96 BPM P-R Int : 188 ms QRS Dur : 102 ms QT Int : 398 ms P-R-T Axes : 41 -28 59 degrees QTcB Int : 502 ms Normal sinus rhythm Possible Left atrial enlargement Minimal voltage criteria for LVH, may be normal variant ( [place] product ) Inferior infarct , age undetermined Prolonged QT Abnormal ECG When compared with ECG of 19-Jul-2025 07:42, Inferior infarct is now Present Referred By: Kike Nunez Electronically Signed By: Neal Jewell
--- NOTE | 2025-09-17 16:07 | ED.GENADULT ---
HPI - General Adult General Chief complaint: Weakness Stated complaint: Progressive Weakness- Weak In Legs, Recent Fall Time Seen by Provider: 09/17/25 16:15 Source: patient, family (daughter at bedside), EMS and RN notes reviewed Mode of arrival: EMS Limitations: no limitations History of Present Illness ED Provider: Cesar Chairez PA-C HPI narrative: 70 year old male accompanied by daughter with pmhx of T2DM, HTN, HLD, ESRD, presents to ED due to progressive weakness over the past 5 years. Daughter states since patient has been experiencing progressive weakness and decline since starting peritoneal dialysis 3 years ago which has now evolved to hemodialysis on a Saturday, Saturday, Saturday schedule. Daughter states patient came home from dialysis today and fell due to weakness of B/L legs with patient stating he felt his legs give out underneath him hitting the L knee against the wheelchair and landing on his buttocks. Patient denies head strike, LOC, dizziness, lightheadedness, nausea or vomiting prior or after the fall. Additionally, patient states he has been experiencing abdominal pain and the feeling that he cannot empty his bowels. Daughter states he had a bowel movement this morning with small volume of normal colored pencil thin stool. Daughter states same episode of weakness with fall happened 1 week ago while he was bending over to rock picker door dash and was too weak to get up on his own, however did not seek medical attention at this time. Patient states he came in today because he feels his weakness is getting worse. Denies chest pain, SOB, difficulty breathing MD complaint: B/L lower extremity weakness, abd pain Related Data Home Medications ?Medication ?Instructions ?Recorded ?Confirmed aspirin 81 mg tablet,delayed 81 mg PO DAILY 06/04/25 09/18/25 release atorvastatin 40 mg tablet 40 mg PO DAILY 06/04/25 09/18/25 sevelamer carbonate 800 mg tablet 1,600 mg PO TIDAC 06/04/25 09/18/25 multivitamin 1 tab PO DAILY 09/18/25 09/18/25 Previous Rx's ?Medication ?Instructions ?Recorded amlodipine 5 mg tablet 5 mg PO DAILY #90 tabs 06/08/25 Allergies Allergy/AdvReac Type Severity Reaction Status Date / Time No Known Allergies Allergy Verified 09/17/25 16:04 Review of Systems Review of Systems: CONST: Negative for fever, body aches and chills. HENT: Negative for neck pain/stiffness, headache, congestion, sore throat, swelling. EYES: Negative for discharge/pain or vision changes. RESP: Negative for hemoptysis and shortness of breath. POS cough CV: Negative chest pain, difficulty breathing, palpitations. ABD: Negative nausea, vomiting. POS abd pain : Negative increase frequency, dysuria, blood in urine or stool. MUSC: Negative for muscle aches, edema. SKIN: Negative rash, lesions/sores. NEURO: Negative headache, dizziness, weakness. POS B/L LE weakness Yes all other systems are reviewed and are negative [facility] Past Medical History Attestation statement: The following information was validated with the patient. Source: old records reviewed and nursing notes reviewed Medical History Inguinal hernia of left side without obstruction or gangrene Clostridioides difficile infection Peritoneal dialysis discontinued Osteomyelitis Diabetes type 2, controlled HTN (hypertension) Hyperlipidemia ESRD (end stage renal disease) Surgical History S/P CABG x 4 H/O coronary artery bypass surgery Social History Social History Household Members: None Housing: House Do you presently have visiting nurse or other home services: Yes (RF MANAGER.) Patient Tobacco Use Status: Former Tobacco user Advance Directives Date on File: 06/04/25 service: No Physical Exam ED Vital Signs: Vital Signs - 24 hr 09/17/25 15:58 09/17/25 17:15 09/17/25 17:30 Temperature 97.3 F 97.9 F Pulse Rate 104 H 94 89 Respiratory Rate 20 16 16 Blood Pressure 80/49 L 86/51 L 110/53 L Pulse Oximetry 97 98 99 Oxygen Delivery Method Room Air Room Air Room Air 09/17/25 17:48 09/17/25 18:15 09/17/25 20:06 Temperature 98.2 F Pulse Rate 93 95 94 Respiratory Rate 18 19 13 Blood Pressure 104/57 L 113/62 105/53 L Pulse Oximetry 99 97 95 Oxygen Delivery Method Room Air Room Air Room Air 09/17/25 22:00 09/17/25 23:14 Temperature 98.4 F 98.4 F Pulse Rate 90 91 Respiratory Rate 16 20 Blood Pressure 97/53 L 101/59 L Pulse Oximetry 96 94 Oxygen Delivery Method Room Air Room Air BMI result Body Mass Index 24.0 GENERAL APPEARANCE: ?AxOx4, disheveled, uncomfortable appearing, in no acute distress. HEENT: ?NC, AT. MMM. EOMI, clear conjunctiva, oropharynx clear. NECK: ?Supple without lymphadenopathy.? No stiffness or restricted ROM. HEART:? Tachycardic rate and regular rhythm, normal S1/S2, no m/r/g LUNGS:? CTAB, moving air well. No crackles or wheezes are heard. ABDOMEN: ?Soft, non distended, no guarding, no rigidity, with diffuse pain to palpation of entire abdomen, no fluid wave noted BACK: No CVAT, no obvious deformity. EXTREMITIES: ?Without cyanosis, clubbing or edema. Small abrasion of L knee without tenderness to palpation, full ROM intact, no calf tenderness NEUROLOGICAL: ?Grossly nonfocal. Alert and oriented, moving all 4 extremities. No facial droop, no speech slurring or dysarthria, strength 4/5 of upper extremities, strength 4/5 of lower extremities, Skin: ?Warm and dry without any rash. Course Course Course Narrative: RME: 89 year male brought to the ED for progressive weakness since dialysis today. After dialysis patient could not even get off the chair by himself. Patient fell onto his knee of caused an abrasion. There was no head strike. Daughter brings patient to the ED due to weakness. Patient is hypotensive brought to the ED Reevaluation(s) Reevaluation #1: I spoke with Vascular Dr. Sam on CTA abdomen findings who will follow patient during his course admitted to hospital. I spoke with Dr. Jordan Chakraborty who will admit to medicine for further management. Time: 01:27 Medications Administered Generic Name Dose Route Start Last Admin Trade Name Marioq PRN Reason Stop Dose Admin Azithromycin 500 mg 09/18/25 15:00 09/18/25 15:38 Azithromycin 500 Mg Tablet PO 500 mg Q24H PARI Administration Bacitracin 1 appl 09/18/25 02:45 09/18/25 21:57 Bacitracin Oint 14 Gm Tube TOPICAL 1 appl BID PARI Administration Protocol Ceftriaxone Sodium 1 gm 09/18/25 17:30 09/18/25 16:44 Ceftriaxone Sodium 1 Gm Vial IVPUSH 1 gm Q24H PARI Administration Heparin Sodium (Porcine) 5,000 unit 09/18/25 01:30 09/19/25 01:59 Heparin Sodium,Porcine 5,000 Unit/Ml Vial SUBCUT 5,000 unit Q12H PARI Administration Insulin Human Lispro 0 unit 09/18/25 07:30 09/18/25 20:56 Insulin Lispro 100 Unit/Ml 3 Ml Vial SUBCUT Not Given QIDACHS [facility] Protocol Sevelamer Carbonate 1,600 mg 09/18/25 11:30 09/18/25 16:44 Sevelamer Carbonate Tablet 800 Mg Tablet PO 1,600 mg TIDAC PARI Administration Sodium Chloride 3 ml 09/18/25 08:00 09/18/25 23:01 0.9 % Sodium Chloride Flush 3 Ml Syringe IVFLUSH 3 ml QSHIFT PARI Administration Vancomycin HCl 125 mg 09/18/25 11:00 09/19/25 06:00 Vancomycin Hcl 125 Mg Capsule PO 125 mg Q6H PARI Administration Discontinued Medications Generic Name Dose Route Start Last Admin Trade Name Freq PRN Reason Stop Dose Admin Ceftriaxone Sodium 2 gm 09/17/25 17:32 09/17/25 17:50 Ceftriaxone Sodium 2 Gm Vial IVPUSH 09/17/25 17:33 2 gm ONCE ONE Administration Lactated Ringer's 1,000 mls @ 999 mls/hr 09/17/25 16:27 09/17/25 17:48 Lr IV 09/17/25 17:27 Infused .Q1H1M ONE Infusion Doxycycline Hyclate 100 mg/ 250 mls @ 166.67 mls/hr 09/18/25 01:45 09/18/25 15:32 Sodium Chloride IV Infused Q12H PARI Infusion Lactated Ringer's 500 mls @ 999 mls/hr 09/18/25 02:30 09/18/25 04:14 Lr IV 09/18/25 03:00 Infused .Q31M PARI Infusion Lactated Ringer's 500 mls @ 50 mls/hr 09/18/25 06:30 09/18/25 21:58 Lr IV 09/18/25 16:29 Infused .Q10H PARI Infusion Iohexol 100 ml 09/17/25 21:47 09/17/25 21:47 Iohexol 350 Mg/Ml 100 Ml Infus..Btl IV 09/17/25 21:48 100 ml ONCE ONE Administration Medical Decision Making Medical Decision Making MDM Narrative: 70 year old male accompanied by daughter with pmhx of T2DM, HTN, HLD, ESRD, presents to ED due to progressive weakness over the past 5 years since starting dialysis for ESRD on Saturday, Saturday, Saturday schedule. Patient has progressive lower extremity weakness causing a fall today where his legs gave out. Patient with diffuse abdominal pain, had a very small volume pencil thin bowel movement, feels as if he cannot push adequately to empty bowels. VS on initial observation-BP 80/49, pulse rate of 104, respiratory rate of 20, afebrile with oral temp of 97.3?, O2 saturation 97% on room air. On physical exam abdomen is soft, non distended, no guarding, no rigidity, with diffuse pain to palpation of entire abdomen, no fluid wave noted. Neurological exam Grossly nonfocal. Alert and oriented, moving all 4 extremities. No facial droop, no speech slurring or dysarthria, strength 4/5 of upper extremities, strength 4/5 of lower extremities, no pronator drift, unable to assess gait at this time due to weakness. EKG reveals normal sinus rhythm with possible left atrial enlargement, with a prolonged QT of 502, no significant ST-elevation/depression, initial troponin elevated at 39.7, 2nd troponin 43.8 negative delta. This is most likely due to trop spill and not being cleared renally. Labs significant for leukocytosis of 16.9 with a left shift of 84.7, macrocytic anemia with a hemoglobin of 11.9, hematocrit of 35.9, creatinine of 5.41, lactic acid of 4.1, hypomagnesemia of 2.7, serum glucose of 172 with an anion gap of 22. VBG pH of 7.47, HCO3 of 37, suggestive of a respiratory alkalosis. CT head brain negative for acute intracranial findings CXR reveals small loculated left-sided pleural effusion, consolidation within the left lower lung indicative of atelectasis/pneumonia. CT abdomen and pelvis without contrast reveals abdominal atherosclerosis, with >80% stenosis of proximal left and right renal arteries, >80% stenosis of the SMA, L inguinal hernia containing adipose tissue, no evidence of incarceration/strangulation, and recommends follow up with CT angio of the abdominal aorta. Course: Patient hypotensive with BP 80/49 no evidence of fluid overload at this time, no pitting edema, or JVD on physical exam, 1L of IV fluids given. At 17:50 on 09/17/25 I suspected infection due to hypotension, elevated lactic of 4.1 with leukocytosis of 16.9 patient with fluid bolus exclusion due to ESRD, given 1L of fluids and 2g ceftriaxone for emperical coverage. Fluid bolus exclusion form filled out as patient is ESRD on dialysis with concerns for fluid overload. I spoke with Senior Gl Accountant Dr Zelaya to discuss CT angio abdominal aorta with contrast who agreed patient needs study for further evaluation. CTA abdomen and pelvis reveals Greater than 80% stenosis of the proximal left and right renal arteries with superimposed moderate to severe calcified atherosclerotic disease. 2. Greater than 90% focal stenosis of the SMA, 1.8 cm distal from its origin with superimposed severe calcified atherosclerotic disease. 3. Hypertrophic prostate. 5. Moderate calcified atherosclerotic disease of the abdominal aorta. 6. Moderate bilateral renal atrophy. Differential Diagnosis Differential Diagnoses: The differential diagnosis associated with the presentation includes Admission/Observation Consideration of admission/observation: Escalation of care including admission/observation considered Lab Data MDM Lab Attestation statement: I reviewed the patient's lab results. 09/18/25 05:49 09/18/25 05:49 Labs: Lab Results 09/17/25 09/17/25 09/17/25 Range/Units 17:00 18:39 18:42 WBC 16.9 H (4.8-10.8) X10*3/uL RBC 3.62 L (4.60-5.80) X10*6/uL Hgb 11.9 L (14.0-18.0) g/dl Hct 35.9 L (42.0-52.0) % MCV 99.2 H (80.0-98.0) fL MCH 32.9 (27.0-33.0) pg MCHC 33.1 (31.0-36.0) g/dl RDW 13.9 (11.0-16.0) % Plt Count 239 D (160-400) X10*3/uL MPV 9.6 (9.4-12.4) fL Immature Gran % (Auto) 0.9 H (0.0-0.4) % Neut % (Auto) 84.7 H (45-73) % Lymph % (Auto) 6.3 L (20-40) % [place] % (Auto) 6.9 (2-11) % Eos % (Auto) 0.7 (0-4) % Baso % (Auto) 0.5 (0-2) % Lymph # (Auto) 1.1 L (1.2-4.9) X10*3/uL [place] # (Auto) 1.2 (0.1-1.2) X10*3/uL Eos # (Auto) 0.1 (0.0-0.4) X10*3/uL Baso # (Auto) 0.1 (0.0-0.2) X10*3/uL Abs Immat Gran (auto) 0.16 H (0.00-0.03) X10*3/uL Absolute Neuts (auto) 14.4 H (2.0-8.3) x10*3/uL Absolute Nucleated RBC 0.000 (0.0-0.012) X10*3/uL Nucleated RBC % (auto) 0.0 (0.0-0.2) /100WBC VBG pH 7.47 H (7.32-7.43) VBG pCO2 49 mmHg VBG pO2 39 mmHg VBG HCO3 37 H (22-26) mmol/L VBG O2 Saturation 46.0 % VBG Base Excess 11.8 mmol/L Sodium 136 138 (135-145) mmol/L Potassium 4.5 4.8 (3.3-5.1) mmol/L Chloride 92 L 91 L (96-108) mmol/L Carbon Dioxide 27 30 H (22-29) mmol/L Anion Gap 22 H 22 H (12-20) BUN 37 H 38 H (9-16) mg/dL Creatinine 5.41 H* 5.59 H* (0.5-1.4) mg/dL Estim Creat Clear Calc 13.7 13.3 Estimated GFR 10 10 Random Glucose 172 H 118 H (60-115) mg/dL Lactic Acid 4.1 H* (0.5-2.0) mmol/L Lactic Acid F/U @ 2Hr (0.5-2.0) mmol/L Calcium 9.2 9.2 (8.4-10.2) mg/dL Magnesium 2.7 H (1.6-2.6) mg/dL Total Bilirubin 0.5 0.4 (0.0-1.0) mg/dL AST 22 21 (5-37) U/L ALT 10 10 (0-40) U/L Alkaline Phosphatase 102 99 (39-117) U/L Total Creatine Kinase 27 L (38-174) U/L Troponin I High Sens 39.7 H 43.8 H (<3.5-35.0) ng/L NT-Pro-B Natriuret Pep 13107.4 H (<300) pg/mL Total Protein 8.1 H 7.8 (6.5-8.0) g/dL Albumin 4.3 4.2 (3.5-5.0) g/dL Lipase 163 H (8-78) U/L Beta-Hydroxybutyrate 0.22 (0.02-0.27) mmol/L TSH 2.06 (0.32-4.0) uIU/mL COVID-19 ([facility]) Negative (Negative) COVID-19 Clin Com See Note Influenza Type A ([facility]) Negative (Negative) Influenza Type B ([facility]) Negative (Negative) Influenza A & B Note See Note 09/17/25 09/17/25 Range/Units 23:19 23:20 WBC (4.8-10.8) X10*3/uL RBC (4.60-5.80) X10*6/uL Hgb (14.0-18.0) g/dl Hct (42.0-52.0) % MCV (80.0-98.0) fL MCH (27.0-33.0) pg MCHC (31.0-36.0) g/dl RDW (11.0-16.0) % Plt Count (160-400) X10*3/uL MPV (9.4-12.4) fL Immature Gran % (Auto) (0.0-0.4) % Neut % (Auto) (45-73) % Lymph % (Auto) (20-40) % [place] % (Auto) (2-11) % Eos % (Auto) (0-4) % Baso % (Auto) (0-2) % Lymph # (Auto) (1.2-4.9) X10*3/uL [place] # (Auto) (0.1-1.2) X10*3/uL Eos # (Auto) (0.0-0.4) X10*3/uL Baso # (Auto) (0.0-0.2) X10*3/uL Abs Immat Gran (auto) (0.00-0.03) X10*3/uL Absolute Neuts (auto) (2.0-8.3) x10*3/uL Absolute Nucleated RBC (0.0-0.012) X10*3/uL Nucleated RBC % (auto) (0.0-0.2) /100WBC VBG pH (7.32-7.43) VBG pCO2 mmHg VBG pO2 mmHg VBG HCO3 (22-26) mmol/L VBG O2 Saturation % VBG Base Excess mmol/L Sodium (135-145) mmol/L Potassium (3.3-5.1) mmol/L Chloride (96-108) mmol/L Carbon Dioxide (22-29) mmol/L Anion Gap (12-20) BUN (9-16) mg/dL Creatinine (0.5-1.4) mg/dL Estim Creat Clear Calc Estimated GFR Random Glucose (60-115) mg/dL Lactic Acid Cancelled (0.5-2.0) mmol/L Lactic Acid F/U @ 2Hr 2.3 H* (0.5-2.0) mmol/L Calcium (8.4-10.2) mg/dL Magnesium (1.6-2.6) mg/dL Total Bilirubin (0.0-1.0) mg/dL AST (5-37) U/L ALT (0-40) U/L Alkaline Phosphatase (39-117) U/L Total Creatine Kinase (38-174) U/L Troponin I High Sens (<3.5-35.0) ng/L NT-Pro-B Natriuret Pep (<300) pg/mL Total Protein (6.5-8.0) g/dL Albumin (3.5-5.0) g/dL Lipase (8-78) U/L Beta-Hydroxybutyrate (0.02-0.27) mmol/L TSH (0.32-4.0) uIU/mL COVID-19 ([facility]) (Negative) COVID-19 Clin Com Influenza Type A ([facility]) (Negative) Influenza Type B ([facility]) (Negative) Influenza A & B Note Independent Interpretation I performed an independent interpretation of an: EKG and CT Scan Interpretation: I personally interpreted the EKG which reveals normal sinus rhythm, prolonged QT without ST-elevation/depression, T-wave abnormality Vent. Rate : 96 BPM Atrial Rate : 96 BPM P-R Int : 188 ms QRS Dur : 102 ms QT Int : 398 ms P-R-T Axes : 41 -28 59 degrees QTcB Int : 502 ms Normal sinus rhythm Possible Left atrial enlargement Minimal voltage criteria for LVH, may be normal variant ( [place] product ) Inferior infarct , age undetermined Prolonged QT Abnormal ECG When compared with ECG of 19-Jul-2025 07:42, Inferior infarct is now Present I personally interpreted the CT abdomen and pelvis which reveals abdominal atherosclerosis, I agree with the radiologist's interpretation Radiology Impression Discussion of test interpretation with radiology: I have reviewed the radiologist's reading. Radiologist Impression: CT abdomen and pelvis Findings: Small left pleural effusion. Left lower lobe near-complete atelectasis with air bronchograms. Cardiomegaly. Greater than 80% stenosis of the proximal left and right renal arteries. No bowel obstruction, pneumoperitoneum, or pneumatosis. Calcified coronary atherosclerotic disease. Moderate to severe calcified atherosclerotic disease of the abdominal aorta and aortoiliac vessels. Diverticulosis. The prostate is hypertrophic. Left inguinal hernia with adipose tissue in lumen, 2.4 cm transverse by 1.7 cm AP by 9.[address] evidence of incarceration or strangulation. [id number] osteopenia. Prior sternotomy. Lumbar dextroscoliosis. Greater than 80% stenosis of the origin of the SMA. L1-2 and L2-3 severe DJD. Lumbar dextroscoliosis. IMPRESSION: 1. Left lower lobe near-complete atelectasis with air bronchograms and small left pleural effusion. Short-term follow-up is suggested. 2. Greater than 80% stenosis of the proximal left and right renal arteries. Consider CT angiogram of the abdominal aorta. 3. Greater than 80% stenosis of the origin of the SMA. Consider CT angiogram of the abdominal aorta. 4. Moderate to severe calcified atherosclerotic disease of the abdominal aorta and aortoiliac vessels. 5. Cardiomegaly. 6. Left inguinal hernia containing adipose tissue, measuring 2.4 x 1.7 x 9.4 cm, without CT evidence of incarceration or strangulation. 7. L1-2 and L2-3 severe degenerative joint disease. 8. Lumbar dextroscoliosis. This document has been electronically signed by: Donnie Lozoya MD on 09/17/2025 18:30:54 Dictated By: Donnie Lozoya MD Signed By: <Electronically signed by Donnie Lozoya MD in [place]> 09/17/[address] angiogram abdomen and pelvis Findings: Moderate calcified atherosclerotic disease of the abdominal aorta. The lung bases are clear. Moderate bilateral renal atrophy. No bowel obstruction, pneumoperitoneum, or pneumatosis. The appendix is within normal limits. The prostate is hypertrophic. No acute fracture. The celiac, single left and right renal arteries and BERE are patent. Severe calcified atherosclerotic disease of the proximal SMA with greater than 90% focal stenosis, axial image number 31 of 104 series 4, sagittal image number 64 of 136 series 7, proximally 1.8 cm distal from its origin. Greater than 80% stenosis of the proximal left and right renal arteries with superimposed moderate to severe calcified atherosclerotic disease. Lumbar dextroscoliosis. IMPRESSION: 1. Greater than 80% stenosis of the proximal left and right renal arteries with superimposed moderate to severe calcified atherosclerotic disease. 2. Greater than 90% focal stenosis of the SMA, 1.8 cm distal from its origin with superimposed severe calcified atherosclerotic disease. 3. Hypertrophic prostate. 4. Lumbar dextroscoliosis. 5. Moderate calcified atherosclerotic disease of the abdominal aorta. 6. Moderate bilateral renal atrophy. This document has been electronically signed by: Donnie Lozoya MD on 09/17/2025 23:38:45 Dictated By: Donnie Lozoya MD Signed By: <Electronically signed by Donnie Lozoya MD in [place]> 09/17/25 2340 Independent Historian Clinical information obtained from an independent historian. History obtained from or confirmed by: Other (Daughter at bedside corroborating history) External Record Review External record reviewed: Inpatient record, Office record and Outpatient record Chronic Conditions Patient?s care impacted by: Diabetes, Hypertension and Other (ESRD on dialysis with Saturday/Saturday/Saturday schedule) Discharge Plan Discharge Clinical Impression: Atherosclerosis of superior mesenteric artery, ESRD (end stage renal disease), Bilateral atherosclerotic renal artery stenosis, Lactic acidosis Patient Disposition: Admitted As Inpatient Interventions: Admission Worksheet (ED) Last Done: 09/18/25 02:47 Discharge Date/Time: 09/18/25 22:20 Sepsis Bolus Exclusion Sepsis Bolus Exclusion CHF/Renal Failure Date of Occurrence: 09/17/25 Time of Occurrence:: 17:50 This patient met severe sepsis criteria due to the following condition(s):: Hypotension, Lactate>=4mmol/L and Documentation of septic shock In my clinical judgement the administration of 30 ml/kg of crystalloid would be detrimental to this patient due to the patient's following conditions:: Stage III or IV Chronic Kidney Disease (GFR<30) and Concern for fluid overload Replace the 30 mls/kg with (Zero amount not acceptable and all fluids for severe sepsis must be given at GREATER than 125 mls/hr) *Note: One of the juarez must be documented
[2025-09-17] MEDS: Lactated Ringers 1,000 ML 999 ML IV (16:35)
[2025-09-17 17:07] LABS: MANUAL DIFF FLAG NO
[2025-09-17 17:10] LABS: Hematocrit 35.9 % (42.0-52.0); Hemoglobin 11.9 g/dl (14.0-18.0); Imm Gran Abs Auto 0.16 X10*3/uL (0.00-0.03); Imm Gran Pct Auto 0.9 % (0.0-0.4); Lymphocytes Absolute Auto 1.1 X10*3/uL (1.2-4.9); Mean Corpuscular HGB Conc 33.1 g/dl (31.0-36.0); Mean Corpuscular Hemoglobin 32.9 pg (27.0-33.0); Mean Corpuscular Volume 99.2 fL (80.0-98.0); NRBC Abs Auto 0.000 X10*3/uL (0.0-0.012); NRBC Pct Auto 0.0 /100WBC (0.0-0.2); Platelet Count 239 X10*3/uL (160-400); Red Blood Count 3.62 X10*6/uL (4.60-5.80); White Blood Count 16.9 X10*3/uL (4.8-10.8)
[2025-09-17 17:24] LABS: COVID-19 Test Negative (Negative); IDNOW Serial# 58CA691E; Lipase 163 U/L (8-78); Magnesium 2.7 mg/dL (1.6-2.6)
[2025-09-17 17:26] LABS: IDNOW Serial# 55D5AD1C; Influenza B2 Negative (Negative)
[2025-09-17 17:31] LABS: Alanine Aminotransferase 10 U/L (0-40); Albumin Level 4.3 g/dL (3.5-5.0); Alkaline Phosphatase 102 U/L (39-117); Anion Gap 22 (12-20); Aspartate Amino Transferase 22 U/L (5-37); Blood Urea Nitrogen 37 mg/dL (9-16); Calcium 9.2 mg/dL (8.4-10.2); Carbon Dioxide 27 mmol/L (22-29); Chloride 92 mmol/L (96-108); Creatinine Clr Calc Pharmacy 13.7; Estimated Glomerular Filt Rate 10; Potassium 4.5 mmol/L (3.3-5.1); Sodium 136 mmol/L (135-145); Total Protein 8.1 g/dL (6.5-8.0)
[2025-09-17 17:32] LABS: Troponin-I High Sensitivity 39.7 ng/L (<3.5-35.0)
--- OUTSIDE RECORDS SUMMARY | 2025-09-17 18:36 | XMS_ITS ---
Author Organization [facility] Care Team Providers Care Civil Lawyer Name Role Phone Rowena August Unavailable Unavailable Maria Teresa Vital Unavailable Unavailable Lexi Cohn Unavailable Unavailable Gloria Thomas Unavailable Unavailable Teresa Cedillo Unavailable Unavailable Stacy Ramires Unavailable Unavailable YobaniadeYair hilario Unavailable Unavailable Allergies and adverse reactions No Known Allergies Care Team Name Role Address Phone Organization Dates Maria Teresa Vital PCP [address], [place], [address], [place] (Office): [facility] 05/13/2024 - 06/30/2024 Rowena Daniellee e [address], [place], [address], [place] (Office): [facility] 05/13/2024 - 06/30/2024 Lexi Cohn [address], [place], [address], [place] (Office[place] : : [facility] 05/13/2024 - 06/30/2024 Gloria Thomas [address] [place] [address] [address], [place], [address], [facility] (Office): [facility] 05/13/2024 - 06/30/2024 Teresa Nguyen [address] [place], [address], [facility] (Office): : [facility] 05/13/2024 - 06/30/2024 Stacy Ramires [address] [place] [address], [address], [facility] (Office): [facility] 05/13/2024 - 06/30/2024 Yair Kim [address] [place] [address], [address], [facility] (Office): : [facility] 05/13/2024 - 06/30/2024 Immunizations Immunization Status Vaccine Details Vaccine Code CodeSystem Marino e Notes Influenza completed Influenza, split virus, trivalent, injectable, contains preservative 141 CVX created date: 05/15/2024 administere d date: 09/09/2023 TB 1 Step Mantoux (PPD) completed tuberculin skin test; unspecified formulation Given 0.1 ml Left Forearm intradermally 98 CVX created date: 05/21/2024 consent date: 05/21/2024 administere d date: 05/21/2024 TB 1 Step Mantoux (PPD) completed tuberculin skin test; unspecified formulation lotNumber: [id number] expiry: 01/02/2026 Given 0.1 ml Right Forearm 98 CVX created date: 05/14/2024 consent date: 05/14/2024 administere d date: 05/14/2024 SARS-COV-2 (COVID-19) completed SARS-COV-2 (COVID-19) vaccine, mRNA, spike protein, LNP, bivalent, preservative free, 30 mcg/0.3 mL dose, lori-sucrose formulation Step 1 of Multi-step with next step required 300 CVX created date: 05/15/2024 administere d date: 11/22/2021 SARS-COV-2 (COVID-19) completed SARS-COV-2 (COVID-19) vaccine, mRNA, spike protein, LNP, bivalent, preservative free, 30 mcg/0.3 mL dose, lori-sucrose formulation Step 1 of Multi-step with next step required 300 CVX created date: 05/15/2024 administere d date: 05/22/2021 SARS-COV-2 (COVID-19 BOOSTER) completed SARS-COV-2 (COVID-19) vaccine, mRNA, spike protein, LNP, preservative free, 50 mcg/0.5 mL dose 221 CVX created date: 05/15/2024 administere d date: 09/26/2022 SARS-COV-2 (COVID-19 BOOSTER) completed SARS-COV-2 (COVID-19) vaccine, mRNA, spike protein, LNP, bivalent, preservative free, 30 mcg/0.3 mL dose, lori-sucrose formulation 300 CVX created date: 05/15/2024 administere d date: 05/09/2022 Mental Status Section Date Assessment Total Score Description 06/30/2024 BIMS 15 cognitively int act CAM 0 No delirium ind icated PHQ-9 00 05/19/2024 BIMS 15 cognitively int act CAM 0 No delirium ind icated PHQ-9 00 Insurance Providers Problems Problem # Description Date of onset Resolved Date Code CodeSystem Concern Status 1 DEPRESSION, UNSPECIFIED 05/14/[address] active 2 TYPE 2 DIABETES MELLITUS WITH UNSPECIFIED DIABETIC RETINOPATHY WITHOUT MACULAR EDEMA 05/14/[address] active 3 ANEMIA, UNSPECIFIED 05/13/[address] active 4 ATHEROSCLEROTIC HEART DISEASE OF [place] CORONARY ARTERY WITHOUT ANGINA PECTORIS 05/13/[address] active 5 COVID-19 05/13/[address] active 6 DEPENDENCE ON RENAL DIALYSIS 05/13/[address] active 7 DIFFICULTY IN WALKING, NOT ELSEWHERE CLASSIFIED 05/13/[address] active 8 END STAGE RENAL DISEASE 05/13/[address] active 9 ENTEROCOLITIS DUE TO CLOSTRIDIUM DIFFICILE, RECURRENT 05/13/[address] active 10 ESSENTIAL (PRIMARY) HYPERTENSION 05/13/[address] active 11 HYPERTENSIVE CHRONIC KIDNEY DISEASE WITH STAGE 5 CHRONIC KIDNEY DISEASE OR END STAGE RENAL DISEASE 05/13/[address] active 12 HYPERTENSIVE URGENCY 05/13/[address] active 13 MUSCLE WEAKNESS (GENERALIZED) 05/13/[address] active 14 NEED FOR ASSISTANCE WITH PERSONAL CARE 05/13/[address] active 15 PURE HYPERCHOLESTEROLEM IA, UNSPECIFIED 05/13/[address] active 16 TYPE 2 DIABETES MELLITUS WITH OTHER DIABETIC KIDNEY COMPLICATION 05/13/[address] active 17 UNSPECIFIED FALL, SUBSEQUENT ENCOUNTER 05/13/[address] active Reason for Referral No Reasons for Referral Entered Social History Social History Observation Description Start Date End Date Code Code System Current Smoking Status Tobacco smoking consumption unknown 310325144 SNOMED CT Sex Assigned At Male 1955 [address]-1 [facility] Gender Identity Sexual Orientation Vital Signs Code Code System Vitals Name Values and Units Timing Information 24558-4 [facility] Pain Level Value=0.0 06/30/2024 2339-0 [facility] Blood Sugar Rmoin=243.0 Units=mg/dL 06/30/2024 8462-4 [facility] Blood Pressure-Diastolic Value=85 Un its=mmHg 06/30/2024 8480-6 [facility] Blood Pressure-Systolic Atcem=964 Un its=mmHg 06/30/2024 8867-4 [facility] Heart rate Value=76.0 Units=/min 9279-1 [facility] Respiratory Rate Value=18.0 Units=/m in 06/29/2024 8310-5 [facility] Body Temperature Value=97.4 Units= F 06/29/2024 70864-9 [facility] O2 % BldC Oximetry Value=98.0 Units= % 06/29/2024 02033-0 [facility] Weight Wrnqt=357.0 Units=Lbs 09/2024 8302-2 [facility] Height Value=65.0 Units=Inches 05/14/2024
--- OUTSIDE RECORDS SUMMARY | 2025-09-17 18:37 | XMS_ITS | Patient Health Record ---
Author Organization [facility] [place] Address [address] [facility] [place] [address] Care Team Providers Care Chips Screen Tender Name Role Phone MD Isabell Sheridan Primary Care Provider Mickey Cedeno Unavailable [phone] Allergies No Known Allergies Results Component Value Reference Range Notes HEMOGLOBIN A1C (GLYCOHEMOGLO BIN) Reviewed date:06/29/2025 02:18:05 PM Interpretation: Performing Lab: Notes/Report: HEMOGLOBIN A1C % (HH) 6.0 Reason For Referral No Information Medications Medication SIG (Take, Route, Frequency, Duration) Notes Start Date End Date Status Extra Depth Orthopedic Shoes (1 Pair) with Customized Heat Molded Multidensity Innersoles (3 Pair) Dx: NIDDM/Polyneuropathy (E11.42), Hammertoe Foot Deformity (M20.41,M20.42), Preulcerative Skin Lesion(s) (L85.1); Duration: 365 days 06/29/2025 Active Aspirin 81 MG 1 tablet Orally Once a day Active Atorvastatin Calcium 40 MG 1 tablet Orally Once a day Active Immunizations Vaccine Route Administration Date Status Comme nts Influenza Unknown 08/03/2024 Administered Social History Tobacco Use: Social History Observation Description Date Details (start date - stop date) Never Smoker NA - NA Tobacco use other than smoking: Question Answer Notes Are you an other tobacco user? No Tobacco Control (Standard) Question Answer Notes Tobacco use: Nonsmoker Additional Findings: Tobacco non-user Current no nsmoker AUDIT-C (Standard) Question Answer Notes Did you have a drink containing alcohol in the p ast year? No Points 0 Interpretation Negative Problems Problem Type SNOMED Code ICD Code Onset Dates Problem Status W/U Status Risk Notes Problem Acquired hammer toe of right foot (5994760760432107 ) Other hammer toe(s) (acquired), right foot (M20.41) Active confirmed Problem Acquired hammer toe of left foot (5814607046298190 ) Other hammer toe(s) (acquired), left foot (M20.42) Active confirmed Problem Polyneuropathy due to type 2 diabetes mellitus (132942631) Type 2 diabetes mellitus with diabetic polyneuropathy (E11.42) Active confirmed Vital Signs Blood pressure diastolic 65 mm Hg 06/29/2025 Height 5 ft 10 in in 06/29/2025 Blood pressure systolic 128 mm Hg 06/29/2025 Weight 176 lbs 06/29/2025 BMI 25.25 kg/m2 06/29/2025 Procedures Procedure Date Ordered Date Performed Result Body Sit e 71543-HOEKSIS NAIL, 1-5 06/29/2025 N/A 87090-LUAY SKIN LESIONS, 2 TO 4 06/29/2025 N/A [id number] DYSTROPHIC NAILS ANY # 06/29/2025 N/A Encounters Encounter Location Date Provider Diagnosis [facility] [address] [place] [address] 06/29/2025 Mickey Pierre Type 2 diabetes mellitus with diabetic polyneuropathy E11.42 ; Tinea unguium B35.1 ; Other hammer toe(s) (acquired), right foot M20.41 and Other hammer toe(s) (acquired), left foot M20.42 Assessments Encounter Date Diagnosis (ICD Code) Assessment Notes Treatment Notes Treatment Clinical Notes Section Notes 06/29/2025 Tinea unguium (ICD-10 - B35.1) 06/29/2025 Type 2 diabetes mellitus with diabetic polyneuropathy (ICD-10 - E11.42) 06/29/2025 Other hammer toe(s) (acquired), right foot (ICD-10 - M20.41) Patient Educated with: DIABETIC FOOT CARE INSTRUCTIONS. pdf (DIABETIC FOOT CARE INSTRUCTIONS. pdf) 06/29/2025 Other hammer toe(s) (acquired), left foot (ICD-10 - M20.42) Plan Of Treatment Pending Test Test Name Order Date [id number] NAIL, 1-5 06/29/2025 75566-ETYP SKIN LESIONS, 2 TO 4 06/29/20 25 [id number] DYSTROPHIC NAILS ANY # Next Appt Details Provider Name:Mickey Pierre , 10/19/2025 01:00:00 PM, [address] [place], [address], Insurance Providers Payer Name Payer Address Payer Phone Subscriber Number Group Number Insured Name Patient Relationship to Insured Coverage Start Date Coverage End Date Medicare [facility] [employer] [address] [place] [address] [phone] [id number] Jordan Valdovinos Self - patient is the insured [address] [facility] [address] [place] [address] [id number] Jordan Valdovinos Self - patient is the insured Medical (General) History Medical History History ICD Code Arthritis Back,Hip,and Knee pain CAD (Cholesterol) Cataracts Depression Diabetic Heart disease High Blood Pressure Kidney disease Numbness Poor circulation Stroke Chicken pox Vascular grafts Joint implants/screws Surgical History Surgery Date(Month/Year) Quadruple Bypass Surgery 10/2021 peritoneal dialysis catheter insertion 0 08/04/2021 peritoneal dialysis catheter removal fistula placement 10/06/2024 peritoneal dialysis catheter revised
--- OUTSIDE RECORDS SUMMARY | 2025-09-17 18:37 | XMS_ITS ---
Author Organization [facility] Care Team Providers Care Satellite Technician Name Role Phone Linda Ardon Unavailable Nima Dixon Unavailable Unavailable Malka Day Unavailable Unavailable Kylah Willard Unavailable Unavailable Allergies and adverse reactions No Known Allergies Care Team Name Role Address Phone Organization Dates Nima Dixon [facility] [address] [address], [place], [address], [facility] (Office): : [facility] 04/03/2024 - 04/18/2024 Linda Ardon [address], [address], [facility] 04/03/2024 - 04/18/2024 Malka Day [address] [facility] [address] [place] [address], [address], [facility] (Office): [facility] 04/03/2024 - 04/18/2024 Kylah Willard [facility] 04/03/2024 - 04/18/2024 Immunizations Immunization Status Vaccine Details Vaccine Code CodeSystem Marino e Notes Influenza completed Influenza, split virus, trivalent, injectable, contains preservative 141 CVX created date: 03/11/2024 administered date: 09/09/2023 (COVID-19) Updated Novavax Vaccine cancelled SARS-COV-2 (COVID-19) vaccine, subunit, recombinant spike protein-nanoparti purvi+Matrix-M1 Adjuvant, preservative free, 5 mcg/0.5 mL dose 313 CVX created date: 03/07/2024 consent date: 03/07/2024 (COVID-19) [facility] Original Booster Vaccine completed SARS-COV-2 (COVID-19) vaccine, mRNA, spike protein, LNP, preservative free, 30 mcg/0.3mL dose 208 CVX created date: 03/11/2024 administered date: 05/09/2022 (COVID-19) [facility] Original Booster Vaccine completed SARS-COV-2 (COVID-19) vaccine, mRNA, spike protein, LNP, preservative free, 30 mcg/0.3mL dose 208 CVX created date: 03/11/2024 administered date: 11/22/2021 (COVID-19) Samir Original Primary 1-Dose Vaccine completed SARS-COV-2 (COVID-19) vaccine, vector non-replicating, recombinant spike protein-Ad26, preservative free, 0.5 mL 212 CVX created date: 03/11/2024 administered date: 05/22/2021 (COVID-19) [facility] Bivalent Vaccine completed SARS-COV-2 (COVID-19) vaccine, mRNA, spike protein, LNP, bivalent, preservative free, 30 mcg/0.3 mL dose, lori-sucrose formulation 300 CVX created date: 03/11/2024 administered date: 09/26/2022 Mental Status Section Date Assessment Total Score Description 04/18/2024 BIMS 15 cognitively int act CAM 0 No delirium ind icated PHQ-9 00 04/09/2024 BIMS 14 cognitively int act CAM 0 No delirium ind icated PHQ-9 00 Insurance Providers Problems Problem # Description Date of onset Resolved Date Code CodeSystem Concern Status 1 DIFFICULTY IN WALKING, NOT ELSEWHERE CLASSIFIED 04/03/[address] active 2 MAJOR DEPRESSIVE DISORDER, SINGLE EPISODE, UNSPECIFIED 04/03/[address] active 3 MUSCLE WASTING AND ATROPHY, NOT ELSEWHERE CLASSIFIED, MULTIPLE SITES 04/03/[address] active 4 PLEURAL EFFUSION, NOT ELSEWHERE CLASSIFIED 04/03/[address] active 5 REPEATED FALLS 04/03/[address] active 6 ATHEROSCLEROTIC HEART DISEASE OF [place] CORONARY ARTERY WITHOUT ANGINA PECTORIS 03/07/[address] active 7 DEPENDENCE ON RENAL DIALYSIS 03/07/[address] active 8 DEPRESSION, UNSPECIFIED 03/07/20 24 03/31/[address] completed 9 DIFFICULTY IN WALKING, NOT ELSEWHERE CLASSIFIED 03/07/20 24 03/31/[address] completed 10 END STAGE RENAL DISEASE 03/07/[address] active 11 ESSENTIAL (PRIMARY) HYPERTENSION 03/07/[address] active 12 HYPERTENSIVE CHRONIC KIDNEY DISEASE WITH STAGE 1 THROUGH STAGE 4 CHRONIC KIDNEY DISEASE, OR UNSPECIFIED CHRONIC KIDNEY DISEASE 03/07/[address] active 13 MUSCLE WASTING AND ATROPHY, NOT ELSEWHERE CLASSIFIED, MULTIPLE SITES 03/07/2003/31/[address] completed 14 OTHER COMPLICATIONS FOLLOWING INFUSION, TRANSFUSION AND THERAPEUTIC INJECTION, INITIAL ENCOUNTER 03/07/[address] active 15 OTHER LACK OF COORDINATION 03/07/20 24 03/31/[address] completed 16 PERITONITIS, UNSPECIFIED 03/07/20 24 03/31/[address] completed 17 PRESENCE OF AORTOCORONARY BYPASS GRAFT 03/07/[address] active 18 PURE HYPERCHOLESTEROLEM [place], UNSPECIFIED 03/07/[address] active 19 TYPE 2 DIABETES MELLITUS WITHOUT COMPLICATIONS 03/07/[address] active 20 UNSPECIFIED PROTEIN-CALORIE MALNUTRITION 03/07/[address] active 21 VITAMIN D DEFICIENCY, UNSPECIFIED 03/07/[address] active 22 WEAKNESS 03/07/[address] active Reason for Referral No Reasons for Referral Entered Social History Social History Observation Description Start Date End Date Code Code System Current Smoking Status Tobacco smoking consumption unknown 272750003 SNOMED CT Sex Assigned At Male 1955 [address]-0 [facility] Gender Identity Sexual Orientation Vital Signs Code Code System Vitals Name Values and Units Timing Information 41006-1 INC Pain Level Value=0.0 04/18/2024 8462-4 [facility] Blood Pressure-Diastolic Value=80 Un its=mmHg 04/18/2024 8480-6 [facility] Blood Pressure-Systolic Ctunt=287 Un its=mmHg 04/18/2024 8867-4 [facility] Heart rate Value=64.0 Units=/min 9279-1 [facility] Respiratory Rate Value=18.0 Units=/m in 04/17/2024 8310-5 [facility] Body Temperature Value=97.6 Units= F 04/17/2024 44296-2 [facility] O2 % BldC Oximetry Value=97.0 Units= % 04/17/2024 89817-6 [facility] Weight Dgnmm=934.9 Units=Lbs 8302-2 [facility] Height Value=71.0 Units=Inches 04/03/2024 2339-0 [facility] Blood Sugar Gxjww=046.0 Units=mg/dL 03/14/2024
[2025-09-17 18:45] LABS: Venous Blood Gas Refer to POC result
[2025-09-17 18:47] LABS: VBG HCO3 37 mmol/L (22-26); VBG O2 % Saturation 46.0 %
[2025-09-17 19:00] LABS: Alanine Aminotransferase 10 U/L (0-40); Albumin Level 4.2 g/dL (3.5-5.0); Alkaline Phosphatase 99 U/L (39-117); Anion Gap 22 (12-20); Aspartate Amino Transferase 21 U/L (5-37); Blood Urea Nitrogen 38 mg/dL (9-16); Calcium 9.2 mg/dL (8.4-10.2); Carbon Dioxide 30 mmol/L (22-29); Chloride 91 mmol/L (96-108); Creatinine Clr Calc Pharmacy 13.3; Estimated Glomerular Filt Rate 10; Potassium 4.8 mmol/L (3.3-5.1); Sodium 138 mmol/L (135-145); Total Protein 7.8 g/dL (6.5-8.0)
[2025-09-17 19:05] LABS: Troponin-I High Sensitivity 43.8 ng/L (<3.5-35.0)
[2025-09-17 19:07] LABS: Reflex Lactate? Lactic Acid Added
--- NOTE | 2025-09-17 20:47 | MHC.EDTECH ---
Patient inc stool therefore patient changed and repositioned
--- NOTE | 2025-09-17 21:46 | PC.NURSE ---
Pt aware that a urine sample is required however he reports he rarely if ever produces urine at this time, CINTIA aware. Pt has been up to bedside commode x2 for BMs
[2025-09-17] MEDS: iohexoL 350 MG/ML 100 ML INFUS..BTL IV (21:47)
[2025-09-17 23:54] LABS: ~Lactic Acid-LAB USE ONLY 2.3 mmol/L (0.5-2.0)
[2025-09-18 01:34] LABS: Reflex Lactate? 2 Y
[2025-09-18 01:53] LABS: NT Pro B Type Natriuretic Pept 13268.4 pg/mL (<300)
--- NOTE | 2025-09-18 02:00 | PM.IMHP ---
History of Present Illness Date of Service: 09/18/25 Attending physician on admission: Gwendolyn Chakraborty Chief Complaint: Weakness Patient is a male 70 years of age with past medical history TIA, CDIFF (last episode April 2024), end-stage renal disease on dialysis M, W and F with left upper arm fistula, previously on peritoneal dialysis and on transplant list but was recently taken off the transplant list due to his fragility, cataract with repair, diabetic retinopathy, hypertension, hyperlipidemia, hearing loss, atherosclerosis, CAD, CABG x4, NIDDM presents to the emergency department very to weakness and a fall resulting in a left knee abrasion with no head strike only on baby aspirin after having dialysis on Saturday. Patient follows with Dr. Mckeon and goes to [facility] dialysis unit in [place]. Patient is anuric and denies history of heart failure. Patient states his appetite has been good and is always good. Patient is having some loose watery stool and has a history of C diff in the past. Last episode of C diff was over a year ago. Patient currently denying any chest pain, abdominal pain, productive cough, nausea or vomiting. Patient denies any headache or visual changes. Daughter reported that she thought he had a wound in the gluteal fold. Patient afebrile but found to have leukocytosis and elevated lactic acid. Workup in the ED included chest x-ray, CT of the chest which indicated need for CTA identifying a greater than 90% focal stenosis of the SMA, 1.8 cm distal from its origin with superimposed severe calcified atherosclerotic disease. Underlying is an 80% stenosis of the proximal left and right renal arteries. Hypertrophic prostate also present. CT scan noted a small left pleural effusion with left lower lobe near complete atelectasis with air bronchograms and cardiomegaly. Chest x-ray also identifies the loculated left pleural effusion with atelectasis versus pneumonia. Head CT negative for any acute findings. EKG normal sinus rhythm with possible left atrial enlargement and LVH with QTC of 502. No record of echocardiogram in [facility] at this time. BNP 60257! Troponin 43.8. Patient is not anemic but labs identified metabolic acidosis likely secondary to end-stage renal disease. Patient's blood sugar 118. Patient initially hypotensive and mildly tachycardic without fever. Noting patient's lactic acid level and white blood count patient may rule in for sepsis. It is not certain what patient's dry weight is but patient did receive lactated Ringer's per protocol in the ED. Patient added that currently he is living in a very stressful environment having gone through a divorce which is almost final but still living with his ex- and adult son. Patient states he is trying to move out but has not yet been able to. Patient denies any severe depression or anxiety. Patient also denies any SI, HI or hallucinations. Review of Systems Review of Systems: Patient currently denies chest pain, shortness of breath at rest, abdominal pain, nausea or vomiting. Patient reports ongoing weakness but feels somewhat better since arrival. Patient denies any fever, chills, constipation but is reporting loose stool and does say that he has a history of C diff with positive toxin in the past. Patient also believes he may have a wound in the gluteal fold area identified by his daughter at 1 point. Patient denies a productive cough and reports good appetite. Patient did experience a near fall after dialysis on Saturday with only an abrasion to the left knee. Yes all other systems are reviewed and are negative [facility] Medical History (Updated 09/18/25 @ 02:20 by ROMANA Hall) Inguinal hernia of left side without obstruction or gangrene Clostridioides difficile infection Peritoneal dialysis discontinued Osteomyelitis Diabetes type 2, controlled HTN (hypertension) Hyperlipidemia ESRD (end stage renal disease) Cognitive capacity: Alert and orientated x3 Functional capacity: independent ambulation Surgical History (Updated 09/18/25 @ 02:17 by ROMANA Hall) S/P CABG x 4 H/O coronary artery bypass surgery Social History Household Members: Family Housing: House Do you presently have visiting nurse or other home services: Yes ([employer].) Patient Tobacco Use Status: Former Tobacco user Smoked in Last 30 Days: No Use of substances other than those prescribed or required for medical reasons: No Advance Directives: Yes Advance Directives Information Provided: No Advance Directives on File: No Advance Directives Date on File: 06/04/25 service: No Ebola Risk: Travel/Contact With Anyone From Affected Area/s: No Has Patient Experienced Ebola Symptoms: No Meds Allergies Allergy/AdvReac Type Severity Reaction Status Date / Time No Known Allergies Allergy Verified 09/17/25 16:04 Active Medications: Current Medications Acetaminophen (Acetaminophen 325 Mg Tablet) 650 mg PO Q6H PRN PRN Reason: Pain, Mild 1-3,fever,headache Albuterol/Ipratropium (Albuterol/Iprat 2.5/0.5mg 3 Ml Ampul.Neb) 3 ml INHALE Q4H PRN PRN Reason: Shortness of Breath/Wheezing Calcium Carbonate (Calcium Carbonate 750 Mg Tab.Chew) 750 mg PO Q4H PRN PRN Reason: Heartburn Ceftriaxone Sodium (Ceftriaxone Sodium 1 Gm Vial) 1 gm IVPUSH Q24H [facility] Heparin Sodium (Porcine) (Heparin Sodium,Porcine 5,000 Unit/Ml Vial) 5,000 unit SUBCUT Q12H [facility] Doxycycline Hyclate 100 mg/ (Sodium Chloride) 250 mls @ 166.67 mls/hr IV Q12H [facility] Magnesium Hydroxide (Milk Of Magnesia 30 Ml Oral.Susp) 30 ml PO DAILY PRN PRN Reason: Constipation Melatonin (Melatonin 3 Mg Tablet) 6 mg PO BEDTIME PRN PRN Reason: Insomnia Ondansetron HCl (Ondansetron Hcl 4 Mg/2 Ml Vial) 4 mg IVPUSH Q8H PRN PRN Reason: Nausea and Vomiting Polyethylene Glycol (Polyethylene Glycol 3350 17 Gm Powd.Pack) 17 gm PO DAILY PRN PRN Reason: Constipation Sodium Chloride (0.9 % Sodium Chloride Flush 3 Ml Syringe) 3 ml IVFLUSH QSHIFT [facility] Home Medications ?Medication ?Instructions ?Recorded ?Confirmed ?Last Taken ?Type aspirin 81 mg tablet,delayed 81 mg PO DAILY 06/04/25 06/04/25 06/04/25 09:00 History release atorvastatin 40 mg tablet 40 mg PO DAILY 06/04/25 06/04/25 06/04/25 09:00 History sevelamer carbonate 800 mg tablet 1,600 mg PO TIDAC 06/04/25 06/04/25 06/04/25 09:00 History ketorolac 0.5 % eye drops 1 drp ophthalmic-Left QID 06/05/25 06/05/25 Unknown History Physical Exam Vital Signs and Narrative: Vital Signs: Last Vital Signs Temp 98.4 F 09/17/25 23:14 Pulse 91 09/17/25 23:14 Resp 20 09/17/25 23:14 BP 101/59 L 09/17/25 23:14 Pulse Ox 94 09/17/25 23:14 O2 Del Method Room Air 09/17/25 23:14 BMI result Body Mass Index 24.0 Alert and orientated X3, able to give good history. Neuro: CN II-X11 intact, no deficits, visual acuity intact EYES: PERRLA, EOM intact, sclerae nonicteric, glasses on ENT: Hard of hearing, no issues with swallowing, uvula midline, lips moist, nares patent no epistaxis Cardiac: S1 S2 RRR, no murmur, no JVD, no edema in Lower ext Pulmonary: lungs diminished bilaterally Abdominal: BS active in all 4 quadrants, no guarding, tenderness, rebounding MSK: strength 4/5 upper and lower extremities : no CVA tenderness no bladder distension Extremities: no edema in lower extremities, PT and DP pulses palpable +2 Psych: mood stable, judgement and insight good Skin: Abrasion over left knee quarter-size, redness in the sacral and gluteal fold area no obvious wound Results Labs 09/17/25 17:00 09/17/25 18:39 Labs: Laboratory Results - last 24 hr 09/17/25 09/17/25 09/17/25 17:00 18:39 18:42 MCV 99.2 H MCH 32.9 MCHC 33.1 RDW 13.9 Plt Count 239 D MPV 9.6 Immature Gran % (Auto) 0.9 H Neut % (Auto) 84.7 H Lymph % (Auto) 6.3 L [place] % (Auto) 6.9 Eos % (Auto) 0.7 Baso % (Auto) 0.5 Lymph # (Auto) 1.1 L [place] # (Auto) 1.2 Eos # (Auto) 0.1 Baso # (Auto) 0.1 Abs Immat Gran (auto) 0.16 H Absolute Neuts (auto) 14.4 H Absolute Nucleated RBC 0.000 Nucleated RBC % (auto) 0.0 VBG pH 7.47 H VBG pCO2 49 VBG pO2 39 VBG HCO3 37 H VBG O2 Saturation 46.0 VBG Base Excess 11.8 Anion Gap 22 H 22 H Estim Creat Clear Calc 13.7 13.3 Estimated GFR 10 10 Random Glucose 172 H 118 H Lactic Acid 4.1 H* Lactic Acid F/U @ 2Hr Calcium 9.2 9.2 Magnesium 2.7 H Total Bilirubin 0.5 0.4 AST 22 21 ALT 10 10 Alkaline Phosphatase 102 99 Total Creatine Kinase 27 L Troponin I High Sens 39.7 H 43.8 H NT-Pro-B Natriuret Pep 90806.4 H Total Protein 8.1 H 7.8 Albumin 4.3 4.2 Lipase 163 H Beta-Hydroxybutyrate 0.22 COVID-19 ([facility]) Negative COVID-19 Clin Com See Note Influenza Type A ([facility]) Negative Influenza Type B ([facility]) Negative Influenza A & B Note See Note 09/17/25 09/17/25 23:19 23:20 MCV MCH MCHC RDW Plt Count MPV Immature Gran % (Auto) Neut % (Auto) Lymph % (Auto) [place] % (Auto) Eos % (Auto) Baso % (Auto) Lymph # (Auto) [place] # (Auto) Eos # (Auto) Baso # (Auto) Abs Immat Gran (auto) Absolute Neuts (auto) Absolute Nucleated RBC Nucleated RBC % (auto) VBG pH VBG pCO2 VBG pO2 VBG HCO3 VBG O2 Saturation VBG Base Excess Anion Gap Estim Creat Clear Calc Estimated GFR Random Glucose Lactic Acid Cancelled Lactic Acid F/U @ 2Hr 2.3 H* Calcium Magnesium Total Bilirubin AST ALT Alkaline Phosphatase Total Creatine Kinase Troponin I High Sens NT-Pro-B Natriuret Pep Total Protein Albumin Lipase Beta-Hydroxybutyrate COVID-19 ([facility]) COVID-19 Clin Com Influenza Type A ([facility]) Influenza Type B ([facility]) Influenza A & B Note ECG Attestation: I personally reviewed and interpreted this ECG as follows: (Normal sinus rhythm with possible left atrial enlargement and LVH and prolonged QTC 502) Imaging Radiologist's Impressions: Head CT Negative for any acute findings Chest x-ray IMPRESSION: 1. Small loculated left pleural effusion. 2. Atelectasis versus pneumonia within the left lower lung. Abdominal pelvis CT IMPRESSION: 1. Left lower lobe near-complete atelectasis with air bronchograms and small left pleural effusion. Short-term follow-up is suggested. 2. Greater than 80% stenosis of the proximal left and right renal arteries. Consider CT angiogram of the abdominal aorta. 3. Greater than 80% stenosis of the origin of the SMA. Consider CT angiogram of the abdominal aorta. 4. Moderate to severe calcified atherosclerotic disease of the abdominal aorta and aortoiliac vessels. 5. Cardiomegaly. 6. Left inguinal hernia containing adipose tissue, measuring 2.4 x 1.7 x 9.4 cm, without CT evidence of incarceration or strangulation. 7. L1-2 and L2-3 severe degenerative joint disease. 8. Lumbar dextroscoliosis. Abdominal pelvis CTA IMPRESSION: 1. Greater than 80% stenosis of the proximal left and right renal arteries with superimposed moderate to severe calcified atherosclerotic disease. 2. Greater than 90% focal stenosis of the SMA, 1.8 cm distal from its origin with superimposed severe calcified atherosclerotic disease. 3. Hypertrophic prostate. 4. Lumbar dextroscoliosis. 5. Moderate calcified atherosclerotic disease of the abdominal aorta. 6. Moderate bilateral renal atrophy. Assessment and Plan (1) Sepsis: Qualifiers: Sepsis acute organ dysfunction status: unspecified Sepsis type: sepsis due to unspecified organism Qualified Code(s): A41.9 - Sepsis, unspecified organism Status: Acute (2) Lactic acidosis: Status: Acute (3) PNA (pneumonia): Qualifiers: Laterality: left Lung location: lower lobe of lung Pneumonia type: due to unspecified organism Qualified Code(s): J18.9 - Pneumonia, unspecified organism Status: Acute (4) Atherosclerosis of superior mesenteric artery: Status: Acute (5) ESRD (end stage renal disease): Status: Acute Plan Patient is a male 70 years of age with past medical history TIA, CDIFF (last episode April 2024), end-stage renal disease on dialysis M, W and F with left upper arm fistula, previously on peritoneal dialysis and on transplant list but was recently taken off the transplant list due to his fragility, cataract with repair, diabetic retinopathy, hypertension, hyperlipidemia, hearing loss, atherosclerosis, CAD, CABG x4, NIDDM presents to the emergency department very to weakness and a fall resulting in a left knee abrasion with no head strike only on baby aspirin after having dialysis on Saturday. Workup in the ED concluded possible sepsis with elevated lactic acid and leukocytosis. Patient initially borderline hypotensive and tachycardic. With fluid resuscitation that has improved. There is evidence of possible heart failure that is new onset. In addition there is presence of pneumonia versus atelectasis. Sepsis/elevated lactic acid/leukocytosis/ pneumonia versus atelectasis/ diarrhea with history of C diff positive toxin Patient is started on ceftriaxone and doxycycline added empirically: Source of infection is not 100% clear, workup continues Blood cultures pending Patient is and urine unable to obtain UA even with straight cath Blood pressure and heart rate have improved with IV fluid Incentive spirometry Stool panel requested/ no complaints of abdominal cramping or pain Elevated BNP with possible new onset heart failure Cardiology consulted Echocardiogram ordered Unclear what patient's true dry weight is, can not administer Lasix as patient is dialysis dependent for fluid balance and is aneuric Telemetry Weigh daily Low-salt diet Fluid allowance 1500 Patient anuric unable to measure I's and o's Prolonged QTC Magnesium pending Continue telemetry Patient is not on any QTC prolonging medication New finding of greater than 90% SMA focal stenosis with 80% stenosis of the proximal left and right renal arteries Vascular was notified from the ED provider And will see patient in the a.m. Consultation placed Patient normally on aspirin and atorvastatin 40 mg HS Lipid panel pending No complaints of abdominal pain at this time Non blanchable finding gluteal fold/ abrasion left knee status post near fall without syncopal episode or head strike Wound care consultation placed Unable to appreciate open wound on exam Bacitracin to left knee abrasion Remind patient to turn and position every 2 hours NIDDM/ diabetic retinopathy Sliding scale insulin Patient normally only on Jardiance Hemoglobin A1c pending CAD/atherosclerosis/history of CABG/ hyperlipidemia Continue aspirin and statin once med rec completed Cardiac diet ESRD on dialysis Nephrology consulted Patient dialyzes M,W, F, compliant with treatment Noting left upper arm fistula with positive thrill and bruit No blood pressures, vena punctures or IVs in left arm Hypertension Blood pressure remains borderline We will bolus 1 additional fluid bolus of 500 cc of LR Hold amlodipine DVT prophylaxis: Heparin subQ Med rec pending Full code status Case management consulted to provide support as patient is going through a difficult divorce and trying to move out of the familial home as the divorce is now final. Patient requires at least 2 midnight stay for IV antibiotics secondary to sepsis and close monitoring via telemetry with possible new onset heart failure and need for expert consultation with Cardiology and vascular for a greater than 90% stenosis of the SMA. Quality Stroke Does the patient have a stroke diagnosis?: No Reason for No Anti-thrombotic by Day Two: N/A - Med Ordered VTE Prior VTE?: No VTE Risk Level:: Medical - moderate - high VTE Device Contraindication: N/A - Device Ordered VTE Drug Contraindication: N/A - Med Ordered
[2025-09-18 02:42] LABS: ~Lactic Acid-LAB USE ONLY 1.7 mmol/L (0.5-2.0)
[2025-09-18] MEDS: Lactated Ringers 500 ML 999 ML IV (03:15)
[2025-09-18 06:24] LABS: Hematocrit 33.4 % (42.0-52.0); Hemoglobin 10.8 g/dl (14.0-18.0); Mean Corpuscular HGB Conc 32.3 g/dl (31.0-36.0); Mean Corpuscular Hemoglobin 32.4 pg (27.0-33.0); Mean Corpuscular Volume 100.3 fL (80.0-98.0); NRBC Abs Auto 0.000 X10*3/uL (0.0-0.012); NRBC Pct Auto 0.0 /100WBC (0.0-0.2); Platelet Count 206 X10*3/uL (160-400); Red Blood Count 3.33 X10*6/uL (4.60-5.80); White Blood Count 10.9 X10*3/uL (4.8-10.8)
[2025-09-18 06:32] LABS: Hemoglobin A1C 122.9868 umol/L; Total Hemoglobin (HGBA1C) 2831.1106 umol/L
[2025-09-18 06:47] LABS: Anion Gap 22 (12-20); Blood Urea Nitrogen 45 mg/dL (9-16); Calcium 8.7 mg/dL (8.4-10.2); Carbon Dioxide 26 mmol/L (22-29); Chloride 92 mmol/L (96-108); Cholesterol 79 mg/dL (<200); Creatinine Clr Calc Pharmacy 11.5; Estimated Glomerular Filt Rate 9; HDL Cholesterol 24 mg/dL (>40); Magnesium 2.6 mg/dL (1.6-2.6); Potassium 4.2 mmol/L (3.3-5.1); Sodium 136 mmol/L (135-145); Triglycerides 169 mg/dL (<150)
[2025-09-18] MEDS: Lactated Ringers 500 ML 50 ML IV (06:56)
[2025-09-18 07:03] LABS: Glucose, Whole Blood 147 mg/dL (60-115)
[2025-09-18 07:54] LABS: Reflex Lactate? Lactic Acid Added
--- NOTE | 2025-09-18 08:24 | PHA.MEDREC ---
Pharmacy Consult ? Medication Reconciliation Pharmacy has completed the medication reconciliation. Pt was unsure but able to confirm his meds from pharmacy claims. Was unsure of Atorvastatin but it was just filled so left it on the list.
[2025-09-18 08:33] VITALS: BP 110/66; PULSE 84; RESP 22; TEMP 36.9; O2SAT 97
[2025-09-18 08:48] LABS: ~Lactic Acid-LAB USE ONLY 1.8 mmol/L (0.5-2.0)
--- NOTE | 2025-09-18 10:17 | PM.EVENT ---
Event Note Date of Service: 09/18/25 Event Note: The patient was seen and evaluated this He is being treated for Likely Pneumonia complicated with sepsis and lactic acidosis Hx of CDiff ; keep on PO Vanco as prophylaxis Vascular surgery consulted for significant stenosis reported on CTA Wound care to follow for wound eval Continue SSI Nephrology will fidel HD on Saturday Pending final blood cultures Continue Doxy and Ceftriaxone for now Time Spent With Patient Time: Total time managing care of this patient today ____ minutes.
[2025-09-18] MEDS: Sevelamer Carbonate Tablet 800 MG TABLET 1600 MG PO ×2 (11:28→16:44)
[2025-09-18 11:30] LABS: Glucose, Whole Blood 143 mg/dL (60-115)
[2025-09-18 11:31] VITALS: BP 113/65; PULSE 86; RESP 16; O2SAT 96
--- NOTE | 2025-09-18 12:37 | HO.NURTONUR ---
Patient presented to ED s/p Fall w/ Knee abrasion admitted w/ pneumonia w/ elevated lactic/sepsis PMH: including but not limited to: TIA, CDIFF (last episode April 2024), end-stage renal disease on dialysis M/W/F with L upper arm fistula Hx of CDiff ; keep on PO Vanco as prophylaxis Vascular consult , Wound care consult Nephrology will fidel HD on Saturday Pending final blood cultures, stool sample pending 22L AC, alert and oriented, intermittently moaning w/o cause PT at bedside presently for eval, 1A stand/pivot to commode w/ walker.
--- NOTE | 2025-09-18 13:06 | PC.NURSE ---
Spoke to pt's daughter requesting update, informed daughter pt continues to wait for bed assignment upstairs, daughter requesting probiotic to be added to patient's meds, inpatient provider made aware of request.
[2025-09-18 14:27] LABS: E. coli EAEC Not Detected (Not Detect.); E. coli EPEC Not Detected (Not Detect.); E. coli ETEC Not Detected (Not Detect.); E. coli STEC Not Detected (Not Detect.); Shigella sp./EIEC Not Detected (Not Detect.)
--- NOTE | 2025-09-18 14:27 | PC.NURSE ---
Pt transferred to hospital bed, bed zeroed, bed weight obtained. 82.3kg.
[2025-09-18 14:28] VITALS: BMI 24.6
--- NOTE | 2025-09-18 14:34 | PC.NURSE ---
Took critical lab for GI panel + campylobacter, inpatient provider Dr. montelongo made aware via tiger.
[2025-09-18 16:13] VITALS: BP 174/82; PULSE 85; RESP 15; O2SAT 98
[2025-09-18 16:27] LABS: Glucose, Whole Blood 137 mg/dL (60-115)
[2025-09-18 20:34] VITALS: BP 120/67; PULSE 92; RESP 26; TEMP 36.9; O2SAT 97
[2025-09-18 20:51] LABS: Glucose, Whole Blood 133 mg/dL (60-115)
[2025-09-18 22:30] VITALS: BMI 25.1
[2025-09-18 22:48] VITALS: BP 147/75; PULSE 91; RESP 18; TEMP 36.3; O2SAT 94
[2025-09-18] MEDS: 0.9 % Sodium Chloride Flush 3 ML SYRINGE IVFLUSH (23:01)
[2025-09-19] VITALS (7 sets, daily range): BP systolic 128–195; BP diastolic 70–89; PULSE 82–97; RESP 16–18; TEMP 36.7–37.4; O2SAT 94–97
[2025-09-19 07:46] LABS: Glucose, Whole Blood 102 mg/dL (60-115)
[2025-09-19 08:06] LABS: MANUAL DIFF FLAG NO
[2025-09-19 08:18] LABS: Hematocrit 30.6 % (42.0-52.0); Hemoglobin 10.1 g/dl (14.0-18.0); Imm Gran Abs Auto 0.06 X10*3/uL (0.00-0.03); Imm Gran Pct Auto 0.6 % (0.0-0.4); Lymphocytes Absolute Auto 1.6 X10*3/uL (1.2-4.9); Mean Corpuscular HGB Conc 33.0 g/dl (31.0-36.0); Mean Corpuscular Hemoglobin 32.8 pg (27.0-33.0); Mean Corpuscular Volume 99.4 fL (80.0-98.0); NRBC Abs Auto 0.000 X10*3/uL (0.0-0.012); NRBC Pct Auto 0.0 /100WBC (0.0-0.2); Platelet Count 192 X10*3/uL (160-400); Red Blood Count 3.08 X10*6/uL (4.60-5.80); White Blood Count 9.7 X10*3/uL (4.8-10.8)
[2025-09-19 08:32] LABS: Blood Urea Nitrogen 64 mg/dL (9-16); Calcium 8.5 mg/dL (8.4-10.2); Creatinine Clr Calc Pharmacy 8.8; Estimated Glomerular Filt Rate 6
[2025-09-19 08:41] LABS: Anion Gap 21 (12-20); Carbon Dioxide 25 mmol/L (22-29); Chloride 93 mmol/L (96-108); Potassium 5.3 mmol/L (3.3-5.1); Sodium 134 mmol/L (135-145)
[2025-09-19] MEDS: Aspirin Enteric Coated 81 MG TABLET.DR PO (09:47)
[2025-09-19 11:04] LABS: Glucose, Whole Blood 173 mg/dL (60-115)
[2025-09-19] MEDS: Sevelamer Carbonate Tablet 800 MG TABLET 1600 MG PO ×2 (11:06→16:55)
[2025-09-19] MEDS: 0.9 % Sodium Chloride Flush 3 ML SYRINGE IVFLUSH ×3 (11:08→21:01)
--- NOTE | 2025-09-19 12:58 | MHC.CM.PN ---
PT REPORTS HE LIVES WITH HIS EX- AND SON HE HAS HD AT [facility], ON THOSE DAYS, HE ALSO HAS A [employer] RE[employer]ER THAT PROVIDES TRANSPORT AND PERSONAL CARE HE USES A [employer]ATOR FOR DME COPY OF HCP REQUESTED PCP: SEBASTIÁN SMYTH IMM DELIVERED DCP: STR RECOMMENDED, [facility] PREFERRED BLS TRANSPORT
--- NOTE | 2025-09-19 14:19 | HO.PM.IMPN ---
Subjective Subjective Date of Service: 09/19/25 Interval History: seen and evaluated this morning reporting generalized abdominal pain diarrhea with semi formed stool denies fever or chills no other events Review of Systems Review of Systems: Yes all other systems are reviewed and are negative Physical Exam Vital Signs: Vital Signs: Last Vital Signs Temp 98.5 F 09/19/25 11:18 Pulse 83 09/19/25 11:18 Resp 18 09/19/25 11:18 BP 149/70 H 09/19/25 11:18 Pulse Ox 96 09/19/25 11:18 O2 Del Method Room Air 09/19/25 11:18 BMI result Body Mass Index 25.1 Const: Other: Constitutional : interactive, not in distress Cardiovascular : no JVP, no lower extremity edema Respiratory : bilateral chest movement, not in resp distress Gastrointestinal: soft, lax, Non tender Skin : Warm, Dry Neurological : Alert & oriented , No focal deficit Objective Data Active Medications Acetaminophen (Acetaminophen 325 Mg Tablet) 650 mg PO Q6H PRN PRN Reason: Pain, Mild 1-3,fever,headache Albuterol/Ipratropium (Albuterol/Iprat 2.5/0.5mg 3 Ml Ampul.Neb) 3 ml INHALE Q4H PRN PRN Reason: Shortness of Breath/Wheezing Aspirin (Aspirin Enteric Coated 81 Mg Tablet.) 81 mg PO DAILY [facility] Last Admin: 09/19/25 09:47 Dose: 81 mg Documented By: NANDA Atorvastatin Calcium (Atorvastatin Calcium 40 Mg Tablet) 40 mg PO DAILY [facility] Last Admin: 09/19/25 09:47 Dose: 40 mg Documented By: NANDA Azithromycin (Azithromycin 500 Mg Tablet) 500 mg PO Q24H [facility] Last Admin: 09/18/25 15:38 Dose: 500 mg Documented By: ZEB Bacitracin (Bacitracin Oint 14 Gm Tube) 1 appl TOPICAL BID [facility]; Protocol Last Admin: 09/19/25 11:06 Dose: Not Given Documented By: NANDA Non-Admin Reason: Patient Refused Calcium Carbonate (Calcium Carbonate 750 Mg Tab.Chew) 750 mg PO Q4H PRN PRN Reason: Heartburn Dextrose (Dextrose 50 % 25 Gm/50 Ml Syringe) 25 gm IVPUSH Q15M PRN; Protocol PRN Reason: per Hypoglycemia Standing Ord. Glucose (Glucose Gel 15 Gm Gel..Gram.) 15 gm PO Q15M PRN; Protocol PRN Reason: per Hypoglycemia Standing Ord. Heparin Sodium (Porcine) (Heparin Sodium,Porcine 5,000 Unit/Ml Vial) 5,000 unit SUBCUT Q12H [facility] Last Admin: 09/19/25 01:59 Dose: 5,000 unit Documented By: JOHNATHON Insulin Human Lispro (Insulin Lispro 100 Unit/Ml 3 Ml Vial) 0 unit SUBCUT QIDACHS [facility]; Protocol Last Admin: 09/19/25 11:13 Dose: 2 unit Documented By: NANDA Lidocaine HCl (Lidocaine Hcl 1 % Mpf 2 Ml Vial) 0.5 ml SUBCUT MOWEFR@1645 [facility] Magnesium Hydroxide (Milk Of Magnesia 30 Ml Oral.Susp) 30 ml PO DAILY PRN PRN Reason: Constipation Melatonin (Melatonin 3 Mg Tablet) 6 mg PO BEDTIME PRN PRN Reason: Insomnia Multivitamins/Vitamin C (Multivitamin Tablet) 1 tab PO DAILY [facility] Last Admin: 09/19/25 09:48 Dose: 1 tab Documented By: NANDA Ondansetron HCl (Ondansetron Hcl 4 Mg/2 Ml Vial) 4 mg IVPUSH Q8H PRN PRN Reason: Nausea and Vomiting Polyethylene Glycol (Polyethylene Glycol 3350 17 Gm Powd.Pack) 17 gm PO DAILY PRN PRN Reason: Constipation Sevelamer Carbonate (Sevelamer Carbonate Tablet 800 Mg Tablet) 1,600 mg PO TIDAC [facility] Last Admin: 09/19/25 11:06 Dose: 1,600 mg Documented By: NANDA Sodium Chloride (0.9 % Sodium Chloride Flush 3 Ml Syringe) 3 ml IVFLUSH QSHIFT [facility] Last Admin: 09/19/25 11:08 Dose: 3 ml Documented By: NANDA Vancomycin HCl (Vancomycin Hcl 125 Mg Capsule) 125 mg PO Q6H [facility] Last Admin: 09/19/25 11:14 Dose: 125 mg Documented By: NANDA Labs 09/19/25 07:35 09/19/25 07:35 Labs: Laboratory Results - last 24 hr 09/18/25 09/18/25 09/18/25 12:23 16:23 20:48 MCV MCH MCHC RDW Plt Count MPV Immature Gran % (Auto) Neut % (Auto) Lymph % (Auto) Doddridge % (Auto) Eos % (Auto) Baso % (Auto) Lymph # (Auto) Doddridge # (Auto) Eos # (Auto) Baso # (Auto) Abs Immat Gran (auto) Absolute Neuts (auto) Absolute Nucleated RBC Nucleated RBC % (auto) Anion Gap Estim Creat Clear Calc Estimated GFR POC Glucose 137 H 133 H Random Glucose Calcium Stl C. cayetanensis PCR Not Detected Stool Rotavirus A PCR Not Detected Stl Adenov F 40/ PCR Not Detected Stool Astrovirus (PCR) Not Detected Stool Campylobacter PCR Detected A Stool Cryptosporidium PCR Not Detected Stl Sh Tox Pr E STEC PCR Not Detected Stool E coli O157 PCR Not applicable Stl Enterotoxigenic E PCR Not Detected Stool EPEC (PCR) Not Detected Stool EAEC (PCR) Not Detected Stl E. histolytica PCR Not Detected Stool Giardia Lamblia PCR Not Detected Stl P. shigelloides PCR Not Detected Stool Salmonella PCR Not Detected Stool Sapovirus (PCR) Not Detected Stl Shigella/EIEC PCR Not Detected St Y.enterocolitica PCR Not Detected Stool Vibrio (PCR) Not Detected Stl Vibrio cholerae PCR Not Detected Stl Norovirus GI/GII PCR Not Detected 09/19/25 09/19/25 09/19/25 07:20 07:35 10:56 MCV 99.4 H MCH 32.8 MCHC 33.0 RDW 13.9 Plt Count 192 MPV 9.5 Immature Gran % (Auto) 0.6 H Neut % (Auto) 70.5 Lymph % (Auto) 16.4 L Doddridge % (Auto) 8.5 Eos % (Auto) 3.6 Baso % (Auto) 0.4 Lymph # (Auto) 1.6 Doddridge # (Auto) 0.8 Eos # (Auto) 0.4 Baso # (Auto) 0.0 Abs Immat Gran (auto) 0.06 H Absolute Neuts (auto) 6.9 Absolute Nucleated RBC 0.000 Nucleated RBC % (auto) 0.0 Anion Gap 21 H Estim Creat Clear Calc 8.8 Estimated GFR 6 POC Glucose 102 173 H Random Glucose 92 Calcium 8.5 Stl C. cayetanensis PCR Stool Rotavirus A PCR Stl Adenov F 40/41 PCR Stool Astrovirus (PCR) Stool Campylobacter PCR Stool Cryptosporidium PCR Stl Sh Tox Pr E STEC PCR Stool E coli O157 PCR Stl Enterotoxigenic E PCR Stool EPEC (PCR) Stool EAEC (PCR) Stl E. histolytica PCR Stool Giardia Lamblia PCR Stl P. shigelloides PCR Stool Salmonella PCR Stool Sapovirus (PCR) Stl Shigella/EIEC PCR St Y.enterocolitica PCR Stool Vibrio (PCR) Stl Vibrio cholerae PCR Stl Norovirus GI/GII PCR Microbiology Microbiology Results: Microbiology 09/17/25 17:00 Blood Culture - Preliminary Blood - Venous No growth after 24 hours. 09/17/25 17:00 Blood Culture - Preliminary Blood - Venous No growth after 24 hours. Assessment and Plan (1) ESRD (end stage renal disease): Status: Acute (2) Lactic acidosis: Status: Acute (3) Sepsis: Status: Acute (4) Campylobacter diarrhea: Status: Acute Plan Patient is a male 70 years of age with past medical history TIA, CDIFF (last episode April 2024), end-stage renal disease on dialysis M, W and F with left upper arm fistula, previously on peritoneal dialysis and on transplant list but was recently taken off the transplant list due to his fragility, cataract with repair, diabetic retinopathy, hypertension, hyperlipidemia, hearing loss, atherosclerosis, CAD, CABG x4, NIDDM presents to the emergency department very to weakness and a fall resulting in a left knee abrasion with no head strike only on baby aspirin after having dialysis on Saturday. Workup in the ED concluded possible sepsis with elevated lactic acid and leukocytosis. Patient initially borderline hypotensive and tachycardic. With fluid resuscitation that has improved. There is evidence of possible heart failure that is new onset. In addition there is presence of pneumonia versus atelectasis. 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 with 80% stenosis of the proximal left and right renal arteries Vascular was notified follow recommendations on aspirin and atorvastatin 40 mg HS Lipid panel pending No complaints of abdominal pain at this time # gluteal fold wound / abrasion left knee Wound care consultation placed Bacitracin to left knee abrasion Remind patient to turn and position every 2 hours # NIDDM/ diabetic retinopathy Sliding scale insulin Patient normally only on Jardiance Hemoglobin A1c pending # CAD/atherosclerosis/history of CABG/ hyperlipidemia Continue aspirin and statin once med rec completed Cardiac diet # ESRD on dialysis Nephrology consulted Patient dialyzes M,W, F, compliant with treatment Noting left upper arm fistula with positive thrill and bruit No blood pressures, vena punctures or IVs in left arm # Hypertension Improved, Hold amlodipine DVT prophylaxis: Heparin subQ Full code status Case management consulted Patient requires overnight stay for IV antibiotics secondary to sepsis pending final cultures and need for expert consultation with nephrology and vascular for a greater than 90% stenosis of the SMA. Quality Stroke Does the patient have a stroke diagnosis?: No Reason for No Anti-thrombotic by Day Two: N/A - Med Ordered VTE Prior VTE?: No VTE Risk Level:: Medical - moderate - high VTE Device Contraindication: N/A - Device Ordered VTE Drug Contraindication: N/A - Med Ordered
[2025-09-19 16:47] LABS: Glucose, Whole Blood 112 mg/dL (60-115)
[2025-09-19 21:15] LABS: Glucose, Whole Blood 113 mg/dL (60-115)
[2025-09-20 03:53] VITALS: BP 149/77; PULSE 90; RESP 16; TEMP 37; O2SAT 94
[2025-09-20 06:47] LABS: MANUAL DIFF FLAG NO
[2025-09-20 06:57] LABS: Hematocrit 30.3 % (42.0-52.0); Hemoglobin 9.9 g/dl (14.0-18.0); Imm Gran Abs Auto 0.08 X10*3/uL (0.00-0.03); Imm Gran Pct Auto 0.8 % (0.0-0.4); Lymphocytes Absolute Auto 1.5 X10*3/uL (1.2-4.9); Mean Corpuscular HGB Conc 32.7 g/dl (31.0-36.0); Mean Corpuscular Hemoglobin 32.7 pg (27.0-33.0); Mean Corpuscular Volume 100.0 fL (80.0-98.0); NRBC Abs Auto 0.000 X10*3/uL (0.0-0.012); NRBC Pct Auto 0.0 /100WBC (0.0-0.2); Platelet Count 192 X10*3/uL (160-400); Red Blood Count 3.03 X10*6/uL (4.60-5.80); White Blood Count 10.1 X10*3/uL (4.8-10.8)
[2025-09-20 07:08] LABS: Anion Gap 22 (12-20); Blood Urea Nitrogen 75 mg/dL (9-16); Calcium 8.7 mg/dL (8.4-10.2); Carbon Dioxide 24 mmol/L (22-29); Chloride 94 mmol/L (96-108); Creatinine Clr Calc Pharmacy 7.1; Estimated Glomerular Filt Rate 5; Potassium 5.3 mmol/L (3.3-5.1); Sodium 135 mmol/L (135-145)
[2025-09-20 07:50] LABS: Glucose, Whole Blood 83 mg/dL (60-115)
[2025-09-20 07:56] VITALS: BP 168/80; PULSE 84; RESP 16; TEMP 36.2; O2SAT 95
[2025-09-20] MEDS: 0.9 % Sodium Chloride Flush 3 ML SYRINGE IVFLUSH ×3 (08:05→20:10)
[2025-09-20 11:10] LABS: Glucose, Whole Blood 147 mg/dL (60-115)
--- NOTE | 2025-09-20 11:32 | P.CONGS_ITS ---
History of Present Illness Consult details Consult date: 09/20/25 Reason for consult: other (SMA stenosis) Narrative: Very pleasant 70-year-old female with a past medical history of TIA C diff and end-stage renal disease presented to the hospital with complaints of abdominal pain. Patient underwent CT scan at the time of admission was found to have SMA stenosis. Upon discussion with him prior to this most recent event he denied any food fear. Able to tolerate carbohydrates with no issues. In addition he denies any weight loss as well. He now presents to us for vascular evaluation. Of note at the time of my exam he reports that his abdomen feels significantly better. He has had multiple bowel movements with no difficulty. Review of Systems 2 Review of Systems: Yes all other systems are reviewed and are negative Constitutional: Constitutional: Reports no additional constitutional complaints ENT: Reports Normal hearing present Cardiovascular: Cardiovascular: Denies chest pain, Denies chest pain at rest, Denies chest pain with activity and Denies pedal edema Respiratory: Respiratory: Denies cough Gastrointestinal: Gastrointestinal: Denies abdominal pain Musculoskeletal: Musculoskeletal: Denies abnormal gait, Denies muscle cramps and Denies radiating pain into limb Integumentary/Breasts: Skin/Breast: Denies skin ulcer and Denies wounds Neurologic: Reports Normal hearing present and Denies abnormal gait Psychiatric: Psychiatric: Reports no additional psychiatric complaints PMFSH Past Medical History Medical History (Updated 09/19/25 @ 14:28 by Brenton Cat MD) Inguinal hernia of left side without obstruction or gangrene Clostridioides difficile infection Peritoneal dialysis discontinued Osteomyelitis Diabetes type 2, controlled HTN (hypertension) Hyperlipidemia ESRD (end stage renal disease) Surgical History Surgical History S/P CABG x 4 H/O coronary artery bypass surgery Social History Social History Household Members: None Housing: House Do you presently have visiting nurse or other home services: Yes ([employer].) Patient Tobacco Use Status: Former Tobacco user Advance Directives Date on File: 06/04/25 service: No Travel History Ebola Risk: Travel/Contact With Anyone From Affected Area/s: No Has Patient Experienced Ebola Symptoms: No Meds Allergies Allergy/AdvReac Type Severity Reaction Status Date / Time No Known Allergies Allergy Verified 09/17/25 16:04 Active Medications: Current Medications Acetaminophen (Acetaminophen 325 Mg Tablet) 650 mg PO Q6H PRN PRN Reason: Pain, Mild 1-3,fever,headache Last Admin: 09/19/25 20:56 Dose: 650 mg Albuterol/Ipratropium (Albuterol/Iprat 2.5/0.5mg 3 Ml Ampul.Neb) 3 ml INHALE Q4H PRN PRN Reason: Shortness of Breath/Wheezing Aspirin (Aspirin Enteric Coated 81 Mg Tablet.Dr) 81 mg PO DAILY [facility] Last Admin: 09/20/25 10:45 Dose: Not Given Atorvastatin Calcium (Atorvastatin Calcium 40 Mg Tablet) 40 mg PO DAILY [facility] Last Admin: 09/20/25 10:45 Dose: Not Given Azithromycin (Azithromycin 500 Mg Tablet) 500 mg PO Q24H [facility] Last Admin: 09/19/25 14:31 Dose: 500 mg Bacitracin (Bacitracin Oint 14 Gm Tube) 1 appl TOPICAL BID [facility]; Protocol Last Admin: 09/20/25 10:46 Dose: Not Given Calcium Carbonate (Calcium Carbonate 750 Mg Tab.Chew) 750 mg PO Q4H PRN PRN Reason: Heartburn Dextrose (Dextrose 50 % 25 Gm/50 Ml Syringe) 25 gm IVPUSH Q15M PRN; Protocol PRN Reason: per Hypoglycemia Standing Ord. Glucose (Glucose Gel 15 Gm Gel..Gram.) 15 gm PO Q15M PRN; Protocol PRN Reason: per Hypoglycemia Standing Ord. Heparin Sodium (Porcine) (Heparin Sodium,Porcine 5,000 Unit/Ml Vial) 5,000 unit SUBCUT Q12H [facility] Last Admin: 09/20/25 01:13 Dose: 5,000 unit Insulin Human Lispro (Insulin Lispro 100 Unit/Ml 3 Ml Vial) 0 unit SUBCUT QIDACHS [facility]; Protocol Last Admin: 09/20/25 07:58 Dose: Not Given Lidocaine HCl (Lidocaine Hcl 1 % Mpf 2 Ml Vial) 0.5 ml SUBCUT MOWEFR@1645 [facility] Lidocaine HCl (Lidocaine 4 % Cream Kit) 1 appl TOPICAL ONCE PRN; Protocol PRN Reason: Prior to HD Magnesium Hydroxide (Milk Of Magnesia 30 Ml Oral.Susp) 30 ml PO DAILY PRN PRN Reason: Constipation Melatonin (Melatonin 3 Mg Tablet) 6 mg PO BEDTIME PRN PRN Reason: Insomnia Multivitamins/Vitamin C (Multivitamin Tablet) 1 tab PO DAILY [facility] Last Admin: 09/20/25 10:46 Dose: Not Given Ondansetron HCl (Ondansetron Hcl 4 Mg/2 Ml Vial) 4 mg IVPUSH Q8H PRN PRN Reason: Nausea and Vomiting Last Admin: 09/19/25 20:56 Dose: 4 mg Polyethylene Glycol (Polyethylene Glycol 3350 17 Gm Powd.Pack) 17 gm PO DAILY PRN PRN Reason: Constipation Sevelamer Carbonate (Sevelamer Carbonate Tablet 800 Mg Tablet) 1,600 mg PO TIDAC [facility] Last Admin: 09/20/25 10:45 Dose: Not Given Sodium Chloride (0.9 % Sodium Chloride Flush 3 Ml Syringe) 3 ml IVFLUSH QSHIFT [facility] Last Admin: 09/20/25 08:05 Dose: 3 ml Vancomycin HCl (Vancomycin Hcl 125 Mg Capsule) 125 mg PO Q6H [facility] Last Admin: 09/20/25 05:48 Dose: 125 mg Home Medications ?Medication ?Instructions ?Recorded ?Confirmed ?Last Taken ?Type aspirin 81 mg tablet,delayed 81 mg PO DAILY 06/04/25 1 09/17/25 History release atorvastatin 40 mg tablet 40 mg PO DAILY 06/04/2509/0109/17/25 History sevelamer carbonate 800 mg tablet 1,600 mg PO TIDAC 09/18/25 09/17/25 History multivitamin 1 tab PO DAILY 09/18/2509/0109/17/25 History Physical Exam 2 Vital Signs: Vital Signs: Last Vital Signs Temp 97.2 F 09/20/25 07:56 Pulse 84 09/20/25 07:56 Resp 16 09/20/25 07:56 BP 168/80 H 09/20/25 07:56 Pulse Ox 95 09/20/25 07:56 O2 Del Method Room Air 09/20/25 07:56 BMI result Body Mass Index 25.1 Const: General: cooperative, healthy appearing and comfortable O rientation/consciousness: oriented to person, oriented to place and oriented to time HEENT: Head: Yes normal to inspection Neck: Neck: Yes normal visual inspection Carotids: no bruits Chest: Chest palpation & inspection: normal inspection of the chest Resp: Effort & Inspection: normal respiratory effort and able to speak in complete sentences Auscultation: clear to auscultation bilaterally, no crackles, no rales, no rhonchi and no wheezes Cardio: Rate: regular rate Rhythm: regular rhythm Heart sounds: S1 normal heart sound present and S2 normal heart sound present Bruits: no carotid bruits Peripheral pulses: Peripheral pulses 2+ throughout GI: Other: Abdomen soft diffusely tender no rebound or guarding. Inspection: Yes normal to inspection Skin: Wounds: no wounds Hair: normal Neuro: General: oriented to person, oriented to place and oriented to time Cranial nerves: Yes CN's II-XII intact bilaterally and Yes Normal hearing present Cognition (Neuro): normal cognition Motor exam (neuro): 5/5 motor strength present throughout Extrem: Other: venous exam: No significant superficial varicosities or spider telangiectasias, minimal edema General: No clubbing, No cyanosis and No edema Psych: Appearance: grossly normal Mental Status: mental status grossly normal Speech and movement: Normal speech and movement present Results Labs 09/20/25 06:18 09/20/25 06:18 Labs: Abnormal lab results 09/20/25 09/20/25 Range/Units 06:18 11:01 RBC 3.03 L (4.60-5.80) X10*6/uL Hgb 9.9 L (14.0-18.0) g/dl Hct 30.3 L (42.0-52.0) % MCV 100.0 H (80.0-98.0) fL Immature Gran % (Auto) 0.8 H (0.0-0.4) % Lymph % (Auto) 14.7 L (20-40) % Abs Immat Gran (auto) 0.08 H (0.00-0.03) X10*3/uL Potassium 5.3 H (3.3-5.1) mmol/L Chloride 94 L (96-108) mmol/L Anion Gap 22 H (12-20) BUN 75 H (9-16) mg/dL Creatinine 10.40 H* (0.5-1.4) mg/dL POC Glucose 147 H (60-115) mg/dL Short CBC 09/20/25 Range/Units 06:18 WBC 10.1 (4.8-10.8) X10*3/uL Hgb 9.9 L (14.0-18.0) g/dl Hct 30.3 L (42.0-52.0) % Plt Count 192 (160-400) X10*3/uL BMP 09/20/25 06:18 Sodium 135 Potassium 5.3 H Chloride 94 L Carbon Dioxide 24 BUN 75 H Creatinine 10.40 H* Calcium 8.7 All other labs normal. Imaging Additional studies: CT scan demonstrates 90% focal SMA stenosis but celiac and BERE access is are both patent. Assessment and Plan (1) Atherosclerosis of superior mesenteric artery: Status: Acute Plan In short patient does not appear to have acute or chronic mesenteric ischemia. I do believe this is more of an incidental finding of high-grade SMA stenosis. To his benefit he does have the celiac and BERE patent. The current time would continue medical workup. He can follow up with us on an as-needed basis. Thank you for allowing us to assist in his care. If there are any questions or concerns please do not hesitate to contact us. Procedures Date of Service Date of Service: 09/20/25
--- NOTE | 2025-09-20 11:32 | MHC.CM.PN ---
Pt. has been medically cleared to DC, DCP: is STR at [facility], where he goes for dialysis, bed to be available tomorrow.
[2025-09-20 11:33] VITALS: BP 151/72; PULSE 81; RESP 16; TEMP 36.8; O2SAT 94
[2025-09-20] MEDS: Lidocaine 4 % Cream KIT 1 APPL TOPICAL (12:42)
--- NOTE | 2025-09-20 12:56 | HO.WOUND ---
Wound Consult: Initial 70yr old?male admitted to [facility] on 09/18/25 - See progress notes and H&P for detailed history.? Wound consult placed for Buttock and Knee abrasion.? Patient agreeable to assessment and photo documentation.? Patient reports knee abrasions are from recent fall - they scabs are stable and resurfacing - patient requests no topical interventions at this time - agreeable to Leaving [facility] if they should open and drainage is noted - ay cover with foam dressing and change every other day. Left Knee Right knee Buttock and sacrum Sacrum Etiology: Right side with Deep Tissue Injury??Present on Admission Measurements: 3cm x 1.5cm x 0.2cm Wound Bed: induration and dried red scab noted - no fluctance and no s/s of active infection noted Drainage / Odor: none noted Edges: ? irregular Pat wound: MASD - red purple pink intact moist tissue ? No Induration, Fluctuance or Warmth noted Pain: Denies Goals of Treatment: ? Barrier cream to protect and foam dressing to sacrum to allow for protection and moist wound healing Recommendations: 1. Turn and Reposition every 2 hours and as needed for patient comfort.? Use pillows or wedges to support off loading positions. 2. Off Load all bony prominences with use of pillows and heel boots if needed.? Apply Preventative foams where needed. ? 3. Monitor for incontinence and moisture control, use barrier creams when needed for prevention and treatment. 4. Provide adequate and supplemental nutrition.? 5. Order low air loss mattress. 6. When applicable maintain blood glucose levels per Providers order. Bilateral Knee - Apply skin Prep may leave [employer]. Sacrum and Buttock - Off Load Pressure with Q2 hr turns and use of pillows - Cleanse with PH balance spray or wipes, pat dry. ?Apply thin layer of Triad to wound bed. Do not remove all of paste between applications as this may cause further skin damage.? Cover with foam dressing to aid in off loading and protection from friction. Change every 3 days and PRN. Re-consult wound care Nurse for wound deterioration or wound changes.
[2025-09-20 13:26] VITALS: BMI 25.1
--- NOTE | 2025-09-20 16:18 | PM.CNNEP ---
History of Present Illness Reason for Consult Consult date: 09/20/25 Chief Complaint Chief complaint: Weakness History of Present Illness Narrative: 70-year-old gentleman with past medical history of ESRD on maintenance hemodialysis MWF through left upper arm AV fistula, outpatient managed by Dr. Forbes as, history of hypertension, diabetes, CAD status post CABG is admitted to the hospital due to diarrhea secondary to Campylobacter. 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 Review of Systems Constitutional: Denies daytime sleepiness and Denies difficulty sleeping Eyes: Denies decreased night vision and Denies diplopia Denies halitosis and Denies change in voice Cardiovascular: Denies chest pain and Denies chest pain at rest Respiratory: Denies chest congestion and Denies cough Gastrointestinal: Reports abdominal pain, Reports belching, Reports bloating and Reports diarrhea Genitourinary: Denies change in libido and Denies hematuria Denies Neuro-related abnormal movements and Denies Abnormal speech present Psychiatric: Reports change in appetite and Denies change in libido Endocrine: Denies change in libido COUNT INCLUDES THE [facility] Past Medical History Medical History (Updated 09/19/25 @ 14:28 by Brenton Cat MD) Inguinal hernia of left side without obstruction or gangrene Clostridioides difficile infection Peritoneal dialysis discontinued Osteomyelitis Diabetes type 2, controlled HTN (hypertension) Hyperlipidemia ESRD (end stage renal disease) Surgical History Surgical History S/P CABG x 4 H/O coronary artery bypass surgery Social History Social History Household Members: None Housing: House Do you presently have visiting nurse or other home services: Yes ([employer]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.) Patient Tobacco Use Status: Former Tobacco user Advance Directives Date on File: 06/04/25 service: No Travel History Ebola Risk: Travel/Contact With Anyone From Affected Area/s: No Has Patient Experienced Ebola Symptoms: No Meds Allergies Allergy/AdvReac Type Severity Reaction Status Date / Time No Known Allergies Allergy Verified 09/17/25 16:04 Active Medications: Current Medications Acetaminophen (Acetaminophen 325 Mg Tablet) 650 mg PO Q6H PRN PRN Reason: Pain, Mild 1-3,fever,headache Last Admin: 09/19/25 20:56 Dose: 650 mg Albuterol/Ipratropium (Albuterol/Iprat 2.5/0.5mg 3 Ml Ampul.Neb) 3 ml INHALE Q4H PRN PRN Reason: Shortness of Breath/Wheezing Aspirin (Aspirin Enteric Coated 81 Mg Tablet.Dr) 81 mg PO DAILY [facility] Last Admin: 09/20/25 10:45 Dose: Not Given Atorvastatin Calcium (Atorvastatin Calcium 40 Mg Tablet) 40 mg PO DAILY [facility] Last Admin: 09/20/25 10:45 Dose: Not Given Azithromycin (Azithromycin 500 Mg Tablet) 500 mg PO Q24H [facility] Last Admin: 09/19/25 14:31 Dose: 500 mg Bacitracin (Bacitracin Oint 14 Gm Tube) 1 appl TOPICAL BID [facility]; Protocol Last Admin: 09/20/25 10:46 Dose: Not Given Calcium Carbonate (Calcium Carbonate 750 Mg Tab.Chew) 750 mg PO Q4H PRN PRN Reason: Heartburn Dextrose (Dextrose 50 % 25 Gm/50 Ml Syringe) 25 gm IVPUSH Q15M PRN; Protocol PRN Reason: per Hypoglycemia Standing Ord. Glucose (Glucose Gel 15 Gm Gel..Gram.) 15 gm PO Q15M PRN; Protocol PRN Reason: per Hypoglycemia Standing Ord. Heparin Sodium (Porcine) (Heparin Sodium,Porcine 5,000 Unit/Ml Vial) 5,000 unit SUBCUT Q12H [facility] Last Admin: 09/20/25 13:45 Dose: Not Given Insulin Human Lispro (Insulin Lispro 100 Unit/Ml 3 Ml Vial) 0 unit SUBCUT QIDACHS [facility]; Protocol Last Admin: 09/20/25 12:15 Dose: Not Given Lidocaine HCl (Lidocaine Hcl 1 % Mpf 2 Ml Vial) 0.5 ml SUBCUT MOWEFR@1645 [facility] Lidocaine HCl (Lidocaine 4 % Cream Kit) 1 appl TOPICAL ONCE PRN; Protocol PRN Reason: Prior to HD Last Admin: 09/20/25 12:42 Dose: 1 appl Magnesium Hydroxide (Milk Of Magnesia 30 Ml Oral.Susp) 30 ml PO DAILY PRN PRN Reason: Constipation Melatonin (Melatonin 3 Mg Tablet) 6 mg PO BEDTIME PRN PRN Reason: Insomnia Multivitamins/Vitamin C (Multivitamin Tablet) 1 tab PO DAILY [facility] Last Admin: 09/20/25 10:46 Dose: Not Given Ondansetron HCl (Ondansetron Hcl 4 Mg/2 Ml Vial) 4 mg IVPUSH Q8H PRN PRN Reason: Nausea and Vomiting Last Admin: 09/19/25 20:56 Dose: 4 mg Polyethylene Glycol (Polyethylene Glycol 3350 17 Gm Powd.Pack) 17 gm PO DAILY PRN PRN Reason: Constipation Sevelamer Carbonate (Sevelamer Carbonate Tablet 800 Mg Tablet) 1,600 mg PO TIDAC [facility] Last Admin: 09/20/25 12:48 Dose: Not Given Sodium Chloride (0.9 % Sodium Chloride Flush 3 Ml Syringe) 3 ml IVFLUSH QSHIFT [facility] Last Admin: 09/20/25 08:05 Dose: 3 ml Vancomycin HCl (Vancomycin Hcl 125 Mg Capsule) 125 mg PO Q6H [facility] Last Admin: 09/20/25 12:48 Dose: Not Given Home Medications ?Medication ?Instructions ?Recorded ?Confirmed ?Last Taken ?Type aspirin 81 mg tablet,delayed 81 mg PO DAILY 06/04/25 09/18/25 09/17/25 History release atorvastatin 40 mg tablet 40 mg PO DAILY 06/04/25 09/18/25 09/17/25 History sevelamer carbonate 800 mg tablet 1,600 mg PO TIDAC 06/04/25 09/18/25 09/17/25 History multivitamin 1 tab PO DAILY 09/18/25 09/18/25 09/17/25 History Physical Exam Vital Signs: Last Vital Signs Temp 98.3 F 09/20/25 11:33 Pulse 81 09/20/25 11:33 Resp 16 09/20/25 11:33 BP 151/72 H 09/20/25 11:33 Pulse Ox 94 09/20/25 11:33 O2 Del Method Room Air 09/20/25 11:33 BMI result Body Mass Index 25.1 General: Elderly male in mild acute distress, he has chronic ill appearing and tired appearing Nutritional Appearance: Poor nourished and normal weight Eyes: appearance normal, both eyes and all related structures; Alignment and Position: alignment normal and position normal Neck: No lymphadenopathy, no thyromegaly Resp: bilateral air entry equal, occasional added sounds present Cardio: Regular rate, regular rhythm; Heart sounds: S1 normal heart sound present and S2 normal heart sound present GI: soft, nontender, no guarding, no hepatosplenomegaly : bladder normal to inspection, bladder normal to palpation, no renal angle tenderness Skin: no rashes or lesions noted and elasticity normal Neuro: oriented to person, oriented to place, oriented to time and moves all extremities Neuro Speech: No Abnormal speech present Results Lab Results 09/20/25 06:18 09/20/25 06:18 Lab results: Chemistry 09/17/25 09/17/25 09/18/25 17:00 18:39 05:49 Sodium 136 138 136 Potassium 4.5 4.8 4.2 Carbon Dioxide 27 30 H 26 BUN 37 H 38 H 45 H Creatinine 5.41 H* 5.59 H* 6.44 H* Calcium 9.2 9.2 8.7 Phosphorus 7.1 H 09/19/25 09/20/25 07:35 06:18 Sodium 134 L 135 Potassium 5.3 H D 5.3 H Carbon Dioxide 25 24 BUN 64 H 75 H Creatinine 8.38 H* 10.40 H* Calcium 8.5 8.7 Phosphorus Hematology 09/17/25 09/18/25 09/19/25 17:00 05:49 07:35 WBC 16.9 H 10.9 H 9.7 Hgb 11.9 L 10.8 L 10.1 L Plt Count 239 D 206 192 09/20/25 06:18 WBC 10.1 Hgb 9.9 L Plt Count 192 Assessment and Plan (1) HTN (hypertension): Status: Acute (2) Bilateral atherosclerotic renal artery stenosis: Status: Acute (3) ESRD (end stage renal disease): Status: Acute (4) Campylobacter diarrhea: Status: Acute Plan 70-year-old gentleman with past medical history of ESRD on maintenance hemodialysis MWF through left upper arm AV fistula, outpatient managed by Dr. Forbes as, history of hypertension, diabetes, CAD status post CABG is admitted to the hospital due to diarrhea secondary to Campylobacter infection He underwent session of hemodialysis this morning, which he tolerated well without any issues. We will continue with hemodialysis sessions MWF as long as he is hospitalized Anemia of ESRD: Hemoglobin close to target, 9.9 this morning Metabolic bone disease: Continue sevelamer 1600 mg TID Hypertension: Is on amlodipine at home, can raise Procedures Date of Service Date of Service: 09/20/25
[2025-09-20 17:12] LABS: Glucose, Whole Blood 152 mg/dL (60-115)
[2025-09-20] MEDS: Sevelamer Carbonate Tablet 800 MG TABLET 1600 MG PO (17:35)
--- NOTE | 2025-09-20 19:05 | HO.PM.IMPN ---
Subjective Subjective Date of Service: 09/20/25 Interval History: Diarrhea improved, now experiencing soft stools every 1-2 hours Abd pain manageable Feels weak Has been able to eat and drink Plan on HD later today Overall improved Review of Systems Review of Systems: Yes all other systems are reviewed and are negative Physical Exam Exam: Exam: General: AOx3, no acute distress Resp: CTA bilaterally CVS: S1, S2, RRR, +murmur GI: +BS, NT, no distention Skin: Warm, dry Neuro: Cranial nerves II-XII grossly intact bilaterally. Motor grossly intact bilaterally Extremities: No edema Psych: Appropriate affect Vital Signs: Vital Signs: Last Vital Signs Temp 98.3 F 09/20/25 11:33 Pulse 81 09/20/25 11:33 Resp 16 09/20/25 11:33 BP 151/72 H 09/20/25 11:33 Pulse Ox 94 09/20/25 11:33 O2 Del Method Room Air 09/20/25 11:33 BMI result Body Mass Index 25.1 Objective Data Active Medications Acetaminophen (Acetaminophen 325 Mg Tablet) 650 mg PO Q6H PRN PRN Reason: Pain, Mild 1-3,fever,headache Last Admin: 09/19/25 20:56 Dose: 650 mg Documented By: JOHNATHON Albuterol/Ipratropium (Albuterol/Iprat 2.5/0.5mg 3 Ml Ampul.Neb) 3 ml INHALE Q4H PRN PRN Reason: Shortness of Breath/Wheezing Aspirin (Aspirin Enteric Coated 81 Mg Tablet.) 81 mg PO DAILY [facility] Last Admin: 09/20/25 10:45 Dose: Not Given Documented By: KIRAN Non-Admin Reason: requesting to hold until after dialysis Atorvastatin Calcium (Atorvastatin Calcium 40 Mg Tablet) 40 mg PO DAILY [facility] Last Admin: 09/20/25 10:45 Dose: Not Given Documented By: KIRAN Non-Admin Reason: requesting to hold until after dialysis Azithromycin (Azithromycin 500 Mg Tablet) 500 mg PO Q24H [facility] Last Admin: 09/20/25 17:35 Dose: 500 mg Documented By: CAMDEN Bacitracin (Bacitracin Oint 14 Gm Tube) 1 appl TOPICAL BID [facility]; Protocol Last Admin: 09/20/25 10:46 Dose: Not Given Documented By: KIRAN Non-Admin Reason: Patient Refused Calcium Carbonate (Calcium Carbonate 750 Mg Tab.Chew) 750 mg PO Q4H PRN PRN Reason: Heartburn Dextrose (Dextrose 50 % 25 Gm/50 Ml Syringe) 25 gm IVPUSH Q15M PRN; Protocol PRN Reason: per Hypoglycemia Standing Ord. Glucose (Glucose Gel 15 Gm Gel..Gram.) 15 gm PO Q15M PRN; Protocol PRN Reason: per Hypoglycemia Standing Ord. Heparin Sodium (Porcine) (Heparin Sodium,Porcine 5,000 Unit/Ml Vial) 5,000 unit SUBCUT Q12H [facility] Last Admin: 09/20/25 13:45 Dose: Not Given Documented By: KIRAN Non-Admin Reason: Off unit: Dialysis Insulin Human Lispro (Insulin Lispro 100 Unit/Ml 3 Ml Vial) 0 unit SUBCUT QIDACHS [facility]; Protocol Last Admin: 09/20/25 17:35 Dose: 2 unit Documented By: CAMDEN Lidocaine HCl (Lidocaine Hcl 1 % Mpf 2 Ml Vial) 0.5 ml SUBCUT MOWEFR@1645 [facility] Last Admin: 09/20/25 17:40 Dose: Not Given Documented By: CAMDEN Non-Admin Reason: Given in Dialysis Lidocaine HCl (Lidocaine 4 % Cream Kit) 1 appl TOPICAL ONCE PRN; Protocol PRN Reason: Prior to HD Last Admin: 09/20/25 12:42 Dose: 1 appl Documented By: KIRAN Magnesium Hydroxide (Milk Of Magnesia 30 Ml Oral.Susp) 30 ml PO DAILY PRN PRN Reason: Constipation Melatonin (Melatonin 3 Mg Tablet) 6 mg PO BEDTIME PRN PRN Reason: Insomnia Multivitamins/Vitamin C (Multivitamin Tablet) 1 tab PO DAILY [facility] Last Admin: 09/20/25 10:46 Dose: Not Given Documented By: KIRAN Non-Admin Reason: requesting to hold until after dialysis Ondansetron HCl (Ondansetron Hcl 4 Mg/2 Ml Vial) 4 mg IVPUSH Q8H PRN PRN Reason: Nausea and Vomiting Last Admin: 09/19/25 20:56 Dose: 4 mg Documented By: JOHNATHON Polyethylene Glycol (Polyethylene Glycol 3350 17 Gm Powd.Pack) 17 gm PO DAILY PRN PRN Reason: Constipation Sevelamer Carbonate (Sevelamer Carbonate Tablet 800 Mg Tablet) 1,600 mg PO TIDAC [facility] Last Admin: 09/20/25 17:35 Dose: 1,600 mg Documented By: CAMDEN Sodium Chloride (0.9 % Sodium Chloride Flush 3 Ml Syringe) 3 ml IVFLUSH QSHIFT [facility] Last Admin: 09/20/25 17:40 Dose: 3 ml Documented By: CAMDEN Vancomycin HCl (Vancomycin Hcl 125 Mg Capsule) 125 mg PO Q6H [facility] Last Admin: 09/20/25 17:35 Dose: 125 mg Documented By: CAMDEN Labs 09/20/25 06:18 09/20/25 06:18 Labs: Laboratory Results - last 24 hr 09/19/25 09/20/25 09/20/25 21:11 06:18 07:44 MCV 100.0 H MCH 32.7 MCHC 32.7 RDW 14.0 Plt Count 192 MPV 9.6 Immature Gran % (Auto) 0.8 H Neut % (Auto) 72.0 Lymph % (Auto) 14.7 L Ellis % (Auto) 8.4 Eos % (Auto) 3.6 Baso % (Auto) 0.5 Lymph # (Auto) 1.5 Ellis # (Auto) 0.9 Eos # (Auto) 0.4 Baso # (Auto) 0.1 Abs Immat Gran (auto) 0.08 H Absolute Neuts (auto) 7.2 Absolute Nucleated RBC 0.000 Nucleated RBC % (auto) 0.0 Anion Gap 22 H Estim Creat Clear Calc 7.1 Estimated GFR 5 POC Glucose 113 83 Random Glucose 88 Calcium 8.7 09/20/25 09/20/25 11:01 17:08 MCV MCH MCHC RDW Plt Count MPV Immature Gran % (Auto) Neut % (Auto) Lymph % (Auto) Ellis % (Auto) Eos % (Auto) Baso % (Auto) Lymph # (Auto) Ellis # (Auto) Eos # (Auto) Baso # (Auto) Abs Immat Gran (auto) Absolute Neuts (auto) Absolute Nucleated RBC Nucleated RBC % (auto) Anion Gap Estim Creat Clear Calc Estimated GFR POC Glucose 147 H 152 H Random Glucose Calcium Microbiology Microbiology Results: Microbiology 09/17/25 17:00 Blood Culture - Preliminary Blood - Venous No growth after 48 hours. 09/17/25 17:00 Blood Culture - Preliminary Blood - Venous No growth after 48 hours. Assessment and Plan (1) Campylobacter diarrhea: Status: Acute Plan Patient is a male 70 years of age with past medical history TIA, CDIFF (last episode April 2024), end-stage renal disease on dialysis M, W and F with left upper arm fistula, previously on peritoneal dialysis and on transplant list but was recently taken off the transplant list due to his fragility, cataract with repair, diabetic retinopathy, hypertension, hyperlipidemia, hearing loss, atherosclerosis, CAD, CABG x4, NIDDM presents to the emergency department very to weakness and a fall resulting in a left knee abrasion with no head strike only on baby aspirin after having dialysis on Saturday. Workup in the ED concluded possible sepsis with elevated lactic acid and leukocytosis. Patient initially borderline hypotensive and tachycardic. With fluid resuscitation that has improved. There is evidence of possible heart failure that is new onset. In addition there is presence of pneumonia versus atelectasis. Sepsis with lactic acidosis 2/2 Campylobacter infection Diarrhea with history of C diff positive toxin Lactic acidosis resolved DC ceftriaxone and doxycycline +ve Campylobacter in stool Treat with Azithromycin p.o., day 2 Start Vancomycin PO for CDiff prophylaxis Blood cultures neg after 48h Incentive spirometry Elevated BNP Likely related to ESRD Hold on cardiology consult for now Weigh daily, Low-salt diet, Fluid allowance 1500 Prolonged QTC stable , Magnesium normal Continue telemetry Patient is not on any QTC prolonging medication at baseline New finding of greater than 90% SMA focal stenosis with 80% stenosis of the proximal left and right renal arteries Vascular was notified follow recommendations On aspirin and atorvastatin 40 mg HS Lipid panel largely WNL No complaints of abdominal pain at this time Vascular surgery consulted, feel no acute or chronic mesenteric ischemia Incidental finding of high-grade SMA stenosis, f/u outpatient with vascular surgery Gluteal fold wound / abrasion left knee Wound care consultation placed Bacitracin to left knee abrasion Remind patient to turn and position every 2 hours # NIDDM/ diabetic retinopathy Sliding scale insulin Patient normally only on Jardiance Hemoglobin A1c pending # CAD/atherosclerosis/history of CABG/ hyperlipidemia Continue aspirin and statin Cardiac diet # ESRD on dialysis Nephrology consulted Patient dialyzes M,W, F, compliant with treatment Noting left upper arm fistula with positive thrill and bruit No blood pressures, vena punctures or IVs in left arm # Hypertension Continue amlodipine DVT prophylaxis: Heparin subQ Full code status Case management consulted Pt needs continued hospitalization for treatment of intractable diarrhea in the setting of campylobacter infection. Given pt's significant comorbidities including ESRD on HD, pt is at significant risk for further decompensation without close monitoring of labs and vitals as diarrhea resolves. Quality Stroke Does the patient have a stroke diagnosis?: No Reason for No Anti-thrombotic by Day Two: N/A - Med Ordered VTE Prior VTE?: No VTE Risk Level:: Medical - moderate - high VTE Device Contraindication: N/A - Device Ordered VTE Drug Contraindication: N/A - Med Ordered
[2025-09-20 19:24] VITALS: BP 137/71; PULSE 98; RESP 18; TEMP 37; O2SAT 97
[2025-09-20 20:10] LABS: Glucose, Whole Blood 210 mg/dL (60-115)
[2025-09-20 23:15] VITALS: BP 133/65; PULSE 86; RESP 18; TEMP 36.6; O2SAT 95
[2025-09-21 03:08] VITALS: BP 143/73; PULSE 86; RESP 18; TEMP 36.6; O2SAT 95
[2025-09-21 07:06] VITALS: BP 162/78; PULSE 88; RESP 16; TEMP 36.6; O2SAT 96
[2025-09-21 07:36] LABS: Glucose, Whole Blood 105 mg/dL (60-115)
[2025-09-21 08:33] LABS: Hematocrit 34.0 % (42.0-52.0); Hemoglobin 11.1 g/dl (14.0-18.0); Mean Corpuscular HGB Conc 32.6 g/dl (31.0-36.0); Mean Corpuscular Hemoglobin 32.6 pg (27.0-33.0); Mean Corpuscular Volume 99.7 fL (80.0-98.0); NRBC Abs Auto 0.000 X10*3/uL (0.0-0.012); NRBC Pct Auto 0.0 /100WBC (0.0-0.2); Platelet Count 188 X10*3/uL (160-400); Red Blood Count 3.41 X10*6/uL (4.60-5.80); White Blood Count 9.4 X10*3/uL (4.8-10.8)
[2025-09-21] MEDS: Aspirin Enteric Coated 81 MG TABLET.DR PO (09:01)
[2025-09-21] MEDS: 0.9 % Sodium Chloride Flush 3 ML SYRINGE IVFLUSH (09:01)
[2025-09-21] MEDS: Sevelamer Carbonate Tablet 800 MG TABLET 1600 MG PO (09:01)
[2025-09-21 09:03] LABS: Anion Gap 19 (12-20); Blood Urea Nitrogen 39 mg/dL (9-16); Calcium 9.2 mg/dL (8.4-10.2); Carbon Dioxide 28 mmol/L (22-29); Chloride 99 mmol/L (96-108); Creatinine Clr Calc Pharmacy 10.5; Estimated Glomerular Filt Rate 8; Potassium 4.8 mmol/L (3.3-5.1); Sodium 141 mmol/L (135-145)
--- NOTE | 2025-09-21 10:43 | P.DS_ITS ---
DS: Providers Provider Date of Service: 09/21/25 Date of admission: 09/18/25 01:28 Date of discharge: 09/21/25 Primary care physician: Isabell Sheridan MD Consults: 09/18/25 01:30 Consult to Nephrology Routine Consulting Provider: [facility] Reason for consultation: ESRD on dialysis Has provider been notified: No Consult to Vascular Surgery Routine Consulting Provider: [facility] Reason for consultation: > 90% stenosis SMA Has provider been notified: Yes 09/18/25 01:58 Consult to Wound Care Routine Reason for consultation: Possible wound in the inner gluteus fold, only appreciate redness, knee abr 09/18/25 02:34 Consult to Case Management Routine Comment: Seeking information, divorce final see admission n DS: Diagnosis Discharge Diagnosis (1) Campylobacter diarrhea: Status: Acute DS: Summary Hospital Course Hospital Course: From admission HPI: Date of Service: 09/18/25 Attending physician on admission: Gwendolyn Chakraborty Chief Complaint: Weakness Patient is a male 70 years of age with past medical history TIA, CDIFF (last episode April 2024), end-stage renal disease on dialysis M, W and F with left upper arm fistula, previously on peritoneal dialysis and on transplant list but was recently taken off the transplant list due to his fragility, cataract with repair, diabetic retinopathy, hypertension, hyperlipidemia, hearing loss, atherosclerosis, CAD, CABG x4, NIDDM presents to the emergency department very to weakness and a fall resulting in a left knee abrasion with no head strike only on baby aspirin after having dialysis on Saturday. Patient follows with Dr. Mckeon and goes to [facility] dialysis unit in [place]. Patient is anuric and denies history of heart failure. Patient states his appetite has been good and is always good. Patient is having some loose watery stool and has a history of C diff in the past. Last episode of C diff was over a year ago. Patient currently denying any chest pain, abdominal pain, productive cough, nausea or vomiting. Patient denies any headache or visual changes. Daughter reported that she thought he had a wound in the gluteal fold. Patient afebrile but found to have leukocytosis and elevated lactic acid. Workup in the ED included chest x-ray, CT of the chest which indicated need for CTA identifying a greater than 90% focal stenosis of the SMA, 1.8 cm distal from its origin with superimposed severe calcified atherosclerotic disease. Underlying is an 80% stenosis of the proximal left and right renal arteries. Hypertrophic prostate also present. CT scan noted a small left pleural effusion with left lower lobe near complete atelectasis with air bronchograms and cardiomegaly. Chest x-ray also identifies the loculated left pleural effusion with atelectasis versus pneumonia. Head CT negative for any acute findings. EKG normal sinus rhythm with possible left atrial enlargement and LVH with QTC of 502. No record of echocardiogram in [facility] at this time. BNP 42003! Troponin 43.8. Patient is not anemic but labs identified metabolic acidosis likely secondary to end-stage renal disease. Patient's blood sugar 118. Patient initially hypotensive and mildly tachycardic without fever. Noting patient's lactic acid level and white blood count patient may rule in for sepsis. It is not certain what patient's dry weight is but patient did receive lactated Ringer's per protocol in the ED. Patient added that currently he is living in a very stressful environment having gone through a divorce which is almost final but still living with his ex- and adult son. Patient states he is trying to move out but has not yet been able to. Patient denies any severe depression or anxiety. Patient also denies any SI, HI or hallucinations. Hospital course Pt was admitted to the hospital for meeting sepsis criteria of unclear origin, initially concerning for pneumonia vs atelectasis and possible C diff infection. Pt was initially started on ceftriaxone and doxycycline, which were discontinued when additional workup indicate pt was positive for Campylobacter infection. Pt was treated with azithromycin x3 days and vancomycin p.o. for C diff prophylaxis with resolution of symptoms. At time of discharge pt was no longer experiencing diarrhea or significant abdominal pain. Pt's imaging of abd/pelvis also were positive for 90% superior mesenteric artery focal stenosis and 80% bilateral renal artery stenosis. Pt was seen and evaluated by vascular surgery who thought these findings were incidental and required no emergent in tervention. Recommendation was to follow up outpatient with vascular surgery. Pt was also noted to be mildly hyperkalemic; received Lokelma and hemodialysis on Thursday 09/20 with improvement to labs and BP. Pt initially presented with weakness and recent fall home; was seen and evaluated by Physical therapy who recommended discharge to short-term rehab for improvement in strength and conditioning. Expected length of stay is less than 30 days. Pt has completed a full course of azithromycin for Campylobacter area infection, and will not be sent home on any new medications. Pt should resume all home medications. Additional details concerning hospital stay as indicated below. Sepsis with lactic acidosis 2/2 Campylobacter infection Diarrhea with history of C diff positive toxin Lactic acidosis resolved Initially treated with ceftriaxone and doxycycline, since d/c'd +ve Campylobacter in stool Treated with Azithromycin p.o. x3 days Received Vancomycin PO for CDiff prophylaxis Blood cultures neg after 48h Incentive spirometry Elevated BNP Likely related to ESRD Hold on cardiology consult for now Weigh daily, Low-salt diet, Fluid allowance 1500 Prolonged QTC stable , Magnesium normal Continue telemetry Patient is not on any QTC prolonging medication at baseline New finding of greater than 90% SMA focal stenosis with 80% stenosis of the proximal left and right renal arteries On aspirin and atorvastatin 40 mg HS Lipid panel largely WNL No complaints of abdominal pain at this time Vascular surgery consulted, feel no acute or chronic mesenteric ischemia Incidental finding of high-grade SMA stenosis, f/u outpatient with vascular surgery Gluteal fold wound / abrasion left knee Wound care consultation placed Bacitracin to left knee abrasion Remind patient to turn and position every 2 hours # NIDDM/ diabetic retinopathy Sliding scale insulin Patient normally only on Jardiance Hemoglobin A1c pending # CAD/atherosclerosis/history of CABG/ hyperlipidemia Continue aspirin and statin Cardiac diet # ESRD on dialysis Nephrology consulted Patient dialyzes M,W, F, compliant with treatment Noting left upper arm fistula with positive thrill and bruit No blood pressures, vena punctures or IVs in left arm # Hypertension Continue amlodipine Time Attestation Discharge Coordination Time (in mins): 38 Quality: Safe Use of Opioids Does Pt have an Active Cancer Diagnosis on the Problem List?: No Quality: Stroke Does the patient have a stroke diagnosis?: No Physical Exam Exam: Exam: General: AOx3, no acute distress Resp: CTA bilaterally CVS: S1, S2, RRR, +murmur GI: +BS, NT, no distention Skin: Warm, dry Neuro: Cranial nerves II-XII grossly intact bilaterally. Motor grossly intact bilaterally Extremities: No edema Psych: Appropriate affect Vital Signs: Vital Signs: Last Vital Signs Temp 97.8 F 09/21/25 07:06 Pulse 88 09/21/25 07:06 Resp 16 09/21/25 07:06 BP 162/78 H 09/21/25 07:06 Pulse Ox 96 09/21/25 07:06 O2 Del Method Room Air 09/21/25 07:06 BMI result Body Mass Index 25.1 DS: Data Data Completed and Pending Completed studies during hospitalization [Text1]: Procedures Performance of Urinary Filtration, Intermittent, Less than 6 Hours Per Day (06/04/25) Labs on day of discharge: Laboratory Results - last 24 hr 09/20/25 09/20/25 09/20/25 11:01 17:08 20:02 WBC RBC Hgb Hct MCV MCH MCHC RDW Plt Count MPV Absolute Nucleated RBC Nucleated RBC % (auto) Sodium Potassium Chloride Carbon Dioxide Anion Gap BUN Creatinine Estim Creat Clear Calc Estimated GFR POC Glucose 147 H 152 H 210 H Random Glucose Calcium 09/21/25 09/21/25 07:10 08:16 WBC 9.4 RBC 3.41 L Hgb 11.1 L Hct 34.0 L MCV 99.7 H MCH 32.6 MCHC 32.6 RDW 14.3 Plt Count 188 MPV 9.1 L Absolute Nucleated RBC 0.000 Nucleated RBC % (auto) 0.0 Sodium 141 Potassium 4.8 Chloride 99 Carbon Dioxide 28 Anion Gap 19 BUN 39 H Creatinine 7.05 H* Estim Creat Clear Calc 10.5 Estimated GFR 8 POC Glucose 105 Random Glucose 134 H Calcium 9.2 Preliminary micro results at discharge 09/17/25 17:00 Blood Culture - Preliminary Blood - Venous No growth after 48 hours. 09/17/25 17:00 Blood Culture - Preliminary Blood - Venous No growth after 48 hours. Discharge Plan Discharge Anticipated Discharge Date/Time: 09/21/25 08:02 Patient Disposition: Xfer SNF Discharge Diagnosis: Campylobacter infection with sepsis Referrals: [facility] [Outside] - 1 Week Physician,Unknown J [Physician, Medical] - 1 Week Discharge Medications: Continued multivitamin Tablet 1 tab PO DAILY atorvastatin 40 mg tablet 40 mg PO DAILY aspirin 81 mg tablet,delayed release (DR/EC) 81 mg PO DAILY sevelamer carbonate 800 mg tablet 1,600 mg PO TIDAC amlodipine 5 mg Tablet 5 mg PO DAILY Qty: 90 0RF Protocol: Hold for SBP< HOLD for SBP < : 90 Discharge Orders: Discharge Order (Routine); Ordered 09/21/25 Ordered By: Shantanu Cortez Activity on Discharge: As tolerated Stand Alone Forms: Patient Portal Discharge page Print Language: Chinese Care Plan Goals: See below Health Concerns: Campylobacter infection Intractable diarrhea Lactic acidosis Hypertension Renal artery stenosis Superior mesenteric artery stenosis Plan of Treatment: You were admitted to the hospital for Campylobacter enteritis meeting sepsis criteria. You were treated with a full course of azithromycin with improvement of symptoms. At time of discharge you were no longer experiencing diarrhea were significant abdominal pain. Abdominal scans also showed incidental findings of renal artery and superior mesenteric artery stenosis. You were seen and evaluated by vascular surgery who recommended outpatient follow up. You had also been noted to have had weakness and a fall at home prior to ED presentation . You were seen and evaluated by physical therapy who recommended short-term rehab for strength and conditioning. -- for Campylobacter enteritis infection, no additional medication required. You have completed a full course of antibiotics while in the hospital -- for bilateral renal artery stenosis and superior mesenteric artery stenosis, follow up with Dr. Sam in vascular surgery in 1-2 weeks -- your blood pressure was also noted to be elevated during her stay, at least in part likely secondary to renal artery stenosis. Continue home antihypertensives and follow up with vascular surgery as above -- you received hemodialysis on Saturday, 09/20. Your next scheduled session is Saturday 09/22 -- continue all of your other home medications Assessment: See discharge summary
[2025-09-21 11:09] LABS: Glucose, Whole Blood 201 mg/dL (60-115)
--- NOTE | 2025-09-21 11:34 | MHC.CM.PN ---
Pt has been medically cleared to DC, he will go to [facility] via B[facility].
== END 2025-09-21 12:03 | disposition skilled nursing facility (03) | DRG 872 ==
LOC: HO.ED 09-18 01:32 → HO.EDOVER 09-18 01:55 → HO.S3 09-18 02:15 → HO.EDOVER 09-18 03:16 → HO.IMC 09-18 21:39
PROVIDERS: Internal Medicine; Physician Assistant; Student in an Organized Health Care Education/Training Program; Admitting Provider Nurse Practitioner Family; Emergency Provider Emergency Medicine; PCP Student in an Organized Health Care Education/Training Program; Visit Provider Student in an Organized Health Care Education/Training Program
DX: A41.89 Other specified sepsis (principal); I12.0 Hypertensive chronic kidney disease with stage 5 chronic kidney disease or end stage renal disease; A04.5 Campylobacter enteritis; N18.5 Chronic kidney disease, stage 5; E87.20 Acidosis, unspecified; E11.22 Type 2 diabetes mellitus with diabetic chronic kidney disease; R94.31 Abnormal electrocardiogram [ECG] [EKG]; I70.1 Atherosclerosis of renal artery; Z99.2 Dependence on renal dialysis; I25.10 Atherosclerotic heart disease of native coronary artery without angina pectoris; E11.319 Type 2 diabetes mellitus with unspecified diabetic retinopathy without macular edema; Z20.822 Contact with and (suspected) exposure to COVID-19; Z95.1 Presence of aortocoronary bypass graft; Z87.891 Personal history of nicotine dependence; Z79.82 Long term (current) use of aspirin; Z79.899 Other long term (current) drug therapy
CPT/HCPCS: 36415; 70450; 71046; 74174; 74176; 80048; 80053; 80061; 82010; 82550; 82803; 82947; 83036; 83605; 83690; 83735; 83880; 84100; 84443; 84484; 85025; 85027; 87040; 87502; 87507; 87635; 90999; 93005; 97162; 99285; J0696; J1171; J1271; J1644; J2405; J7120; Q9967

== ENCOUNTER → 2025-09-17 16:05 | Outpatient (BNV) | payer MEDICARE, OTHER, SELFPAY | PROVIDERS: Admitting Provider Nurse Practitioner Family; Emergency Provider Emergency Medicine; Visit Provider Internal Medicine Cardiovascular Disease | DX: R94.31 Abnormal electrocardiogram [ECG] [EKG] (principal); I95.9 Hypotension, unspecified | CPT/HCPCS: 93010 ==

== ENCOUNTER → 2025-09-17 16:27 | Outpatient (BNV) | payer MEDICARE, OTHER, SELFPAY | PROVIDERS: Emergency Provider Emergency Medicine; Visit Provider Radiology Diagnostic Radiology | DX: J90 Pleural effusion, not elsewhere classified (principal) | CPT/HCPCS: 71046 ==

== ENCOUNTER → 2025-09-18 01:28 | Outpatient (BNV) | payer MEDICARE, OTHER, SELFPAY | PROVIDERS: Admitting Provider Nurse Practitioner Family; Emergency Provider Emergency Medicine; Visit Provider Surgery Vascular Surgery | DX: K55.1 Chronic vascular disorders of intestine (principal) | CPT/HCPCS: 99222 ==

== ENCOUNTER → 2025-09-18 01:28 | Outpatient (BNV) | payer MEDICARE, OTHER, SELFPAY | PROVIDERS: Admitting Provider Nurse Practitioner Family; Emergency Provider Emergency Medicine; Visit Provider Internal Medicine Critical Care Medicine | DX: I12.0 Hypertensive chronic kidney disease with stage 5 chronic kidney disease or end stage renal disease (principal); I70.1 Atherosclerosis of renal artery; N18.6 End stage renal disease; A04.5 Campylobacter enteritis | CPT/HCPCS: 99223 ==

== ENCOUNTER → 2025-09-18 01:28 | Outpatient (BNV) | payer MEDICARE, OTHER, SELFPAY | PROVIDERS: Admitting Provider Nurse Practitioner Family; Emergency Provider Emergency Medicine; Visit Provider Student in an Organized Health Care Education/Training Program | DX: A04.5 Campylobacter enteritis (principal) | CPT/HCPCS: 99223; 99233; 99499 ==

== ENCOUNTER 2025-11-09 06:39 | Outpatient (REF) | payer MEDICARE, SELFPAY ==
--- OUTSIDE RECORDS SUMMARY | 2025-10-19 08:00 | XMS_ITS ---
Author Organization [facility] Address [address] [place] [id number] Care Team Providers Care Per Diem Physical Therapist Name Role Phone MD Isabell Sheridan Primary Care Provider Unavailabl Mickey Negrete Unavailable [phone] Encounters Encounter Location Date Provider Diagnosis [address] [id number] 10/19/2025 Mickey Pierre Plan Of Treatment Next Appt Details Provider Name:Mickey Pierre , 01/25/2026 02:30:00 PM, [address] [place] [address], [id number], Progress Notes * MAYCOJordan ANTHONY HDOB: 4 (70 yo M)Acc No.[id number]:10/19/2025 Progress Note Patient: Jordan NICOLE Provider: Amara Pierre DPM :1955 A ge:70 Y S ex:Male Date:10/19/2025 Address:[address] [place] [id number] Pcp:MD Isabell Sheridan Subjective: * Chief Complaints: * * Medical History: Objective: * Vitals: Assessment: Plan: * Treatment: * Images: * The named appointment provid er may or may not be the originator of this progress note, and it is not deemed complete until electronically signed by the appointment provider. Sign off status: Pending * Provider: Amara Pierre DPM Date: 12/19/2024 Generated for Gely Betts on: 01/10/2025 06:43 AM EST
--- OUTSIDE RECORDS SUMMARY | 2025-11-05 23:59 | XMS_ITS | Continuity of Care Document ---
Author Organization [facility] Address [address] [place] [phone]- Care Team Providers Care Permit Technician Name Role Phone Isabell Sheridan MD Primary Care Physician [id number] Date(s): 10/06/25 - 11/05/25 [facility] [address] [place] [address]- Encounter Type: Triage Allergies, Adverse Reactions, Alerts No Known Medication Allergies Immunizations Given and Recorded Vaccine Date Status Refusal Reason influenza virus vaccine, inactivated 09/09/23 Henok rded influenza virus vaccine, inactivated 09/18/21 Henok rded [id number] bivalent booster vax 09/26/22 Recorded SARS-CoV-2 mRNA ([id number]) vax 05/09/22 Given SARS-CoV-2 (COVID-19) mRNA BNT-162b2 vac 11/22/21 Recorded SARS-CoV-2 (COVID-19) Ad26 vaccine 1 05/22/21 Give n 1Result Comment: [id number] Medications Aspirin Tablet 81 mg, By Mouth, Daily, Refills 0, Maintenance, 11/01/21 12:49:00 PM EST Start Date: 11/01/21 Status: Ordered Medication Dispense Status: Completed Total Allowed Fills: 1 Fills Dispensed: 0 Co Q-10 = 100 mg, By Mouth, Daily, 0 Refills, Maintenance, 02/16/25 11:16:00 AM EDT, Partial fill upon patient request if the prescription is for a schedule II opioid drug. Start Date: 02/16/25 Status: Ordered Medication Dispense Status: Completed Total Allowed Fills: 1 Fills Dispensed: 0 Florastor 250 mg oral capsule 1 capsule = 250 mg, By Mouth, Daily, PRN for loose stool, # 10 capsule, 0 Refills, Maintenance, 07/23/24 1:13:00 PM EDT, Capsule, Partial fill upon patient request if the prescription is for a schedule II opioid drug. Start Date: 07/23/24 Status: Ordered Medication Dispense Status: Completed Quantity: 10.0 Unit: capsule Total Allowed Fills: 1 Fills Dispensed: 0 Freestyle Lite Lancets See Instructions, # 200 each, Refills 5, Tot. Refills 5, Maintenance, use as directed for Type 2 Diabetes Mellitus to check blood sugars once daily in morning, 08/13/25 12:56:00 PM EDT, Supply, 176, cm, 08/10/25 14:46:00 EDT, Height, 75.1, kg, 10/06/24 12:06:00 EST, Dry Weight Start Date: 08/13/25 Stop Date: 02/09/26 Status: Ordered Medication Dispense Status: Completed Quantity: 200.0 Unit: each Total Allowed Fills: 6 Fills Dispensed: 0 Freestyle Lite Monitor See Instructions, # 1 each, Refills 5, Tot. Refills 5, Maintenance, use as directed for Type 2 Diabetes Mellitus to check blood sugars once daily in morning, 08/13/25 12:55:00 PM EDT, Supply, 176, cm,08/10/25 14:46:00 EDT, Height, 75.1, kg, 10/06/24 12:06:00 EST, Dry Weight Start Date: 08/13/25 Stop Date: 02/09/26 Status: Ordered Medication Dispense Status: Completed Quantity: 1.0 Unit: each Total Allowed Fills: 6 Fills Dispensed: 0 Freestyle Lite Test Strips See Instructions, # 200 each, Tot. Refills 5, Maintenance, use as directed for Type 2 Diabetes Mellitus to check blood sugars once daily in morning, 08/13/25 12:56:00 PM EDT, Supply, 176, cm, 08/10/2514:46:00 EDT, Height, 75.1, kg, 10/06/24 12:06:00 EST, Dry Weight Start Date: 08/13/25 Stop Date: 09/12/25 Status: Ordered Medication Dispense Status: Completed Quantity: 200.0 Unit: each Total Allowed Fills: 6 Fills Dispensed: 0 Nephro-Caty By Mouth, Daily, 0 Refills, Maintenance, 07/23/24 1:14:00 PM EDT, Partial fill upon patient request if the prescription is for a schedule II opioid drug. Start Date: 07/23/24 Status: Ordered Medication Dispense Status: Completed Total Allowed Fills: 1 Fills Dispensed: 0 sitaGLIPtin 25 mg oral tablet = 25 mg, By Mouth, Daily, # 90 tablet, 3 Refills, Maintenance, 08/10/25 3:21:00 PM EDT, Tablet, [id number], Partial fill upon patient request if the prescription is for a schedule II opioid drug., 176, cm, 08/10/25 14:46:00 EDT, Height, 75.1, kg, 10/06/24 12:06:00 EST, Dry Weight Start Date: 08/10/25 Stop Date: 08/05/26 Status: Ordered Medication Dispense Status: Completed Quantity: 90.0 Unit: tablet Total Allowed Fills: 4 Fills Dispensed: 0 Indications: Type 2 diabetes mellitus with diabetic chronic kidney disease; Vitamin D3 1000 intl units oral tablet 2 tablet = 50 mcg, By Mouth, Daily, Maintenance, 05/26/24 4:37:00 PM EDT Start Date: 05/26/24 Status: Ordered Medication Dispense Status: Completed Total Allowed Fills: 1 Fills Dispensed: 0 Problem List Condition Confirmation Course Effective Dates Status H ealth Status Informant Adjustment disorder with depressed mood Confirmed Active Anemia of renal disease Confirmed Active CAD (coronary artery disease) Confirmed Active Hemodialysis status Confirmed Active End stage renal disease Confirmed Active S/P CABG (coronary artery bypass graft) Confirmed Active Hypotension Confirmed Active Nephrotic range proteinuria Confirmed 04/27/21 Active Recurrent Clostridioides difficile infection Confirmed Active Hypertension, renal Confirmed Active 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 Optometric Technologist Member Role: Primary Care Nurse Address: [facility] [address] [facility] [employer], [place] [address]- Telecom: Name: Sarah Lau Position: [facility] Medical Student Member Role: Primary Care Nurse Name: Renita Ribeiro RN Position: [facility] RN Member Role: Primary Care Nurse Name: Sharri Harp RN Position: [facility] ED RN W/OE and Tasks Member Role: Primary Care Nurse Name: Stephanie Raman RN Position: [facility] RN Member Role: Primary Care Nurse Name: Dede Vazquez Position: [facility] Outreach Member Role: Lifetime Consulting Physician Name: Tiera Cisse Position: [facility] Outreach Member Role: Lifetime Consulting Physician Name: Randy Walsh LPN Position: [facility] RN Member Role: Primary Care Nurse Name: Brooklyn Casey RN Position: [facility] RN Member Role: Primary Care Nurse Name: Lilly Paulino RN Position: [facility] RN Member Role: Primary Care Nurse Name: Delicia Juares RN Position: [facility] RN Member Role: Primary Care Nurse Name: Ale Rand RN Position: [facility] AMB Nurse Member Role: Primary Care Nurse Name: Swathi Diaz NP Position: [facility] Associate Professional Member Role: Lifetime Consulting Provider Address: [address] [place] [address] [address] [facility] [place] [address]- Telecom: Name: Saqib Bertrand MD Position: [facility] Renal MD Member Role: Lifetime Consulting Physician Address: [facility] [address] [facility] [place] [address]- [place] Telecom: Name: [employer] Laura Position: [facility] blue line hanger Member Role: Automatic Typewriter Inspector Name: Garcia Trujillo DO Position: [facility] Renal MD Member Role: Lifetime Consulting Physician Address: [address] [facility] [address] [facility] [place] [address]- [place] Telecom: Name: Nguyễn Barbosa III, RN Position: [facility] RN Member Role: Primary Care Nurse Name: Ward Addison RN Position: [facility] RN Member Role: Primary Care Nurse Name: Isabell Sheridan MD Position: [facility] Physician - Primary Care Member Role: PCP Address: [address] [place] [address] [place] [address]- Telecom: Name: Susie Steel RN Position: S RN Member Role: Primary Care Nurse Name: Branden Chacko RN Position: S RN Member Role: Primary Care Nurse Name: Jackie Zaidi RN Position: S RN Member Role: Primary Care Nurse Name: Paula Brown RN Position: [facility] RN Member Role: Primary Care Nurse Name: Jolene Quinonez RN Position: [facility] RN Member Role: Primary Care Nurse Name: Melba Hidalgo RN Position: [facility] RN Member Role: Primary Care Nurse Name: Maribell Gomez RN Position: [facility] RN Member Role: Primary Care Nurse Name: Corina Hill RN Position: [facility] RN Member Role: Primary Care Nurse Name: Anita Zapien RN Position: [facility] RN Member Role: Primary Care Nurse Name: Guillermo Jackson RN Position: [facility] RN Member Role: Primary Care Nurse Care Team Related Persons Name: LARRYCINDY NOBLE Name: CAROL BERNSTEIN Insurance Providers Guarantor name: JOANN JUAREZAIDE Health Plan Information #: 1 Payer: MEDICARE B Payer Identifier: Member Number: [id number] Group Number: Subscriber Identifier: Relationship to Subscriber: self Coverage Type: NA Coverage Verification Date: NA Telecom: NA Address: Health Plan Information #: 2 Payer: [facility] Payer Identifier: NA Member Number: [id number] Group Number: [id number] Subscriber Identifier: Relationship to Subscriber: self Coverage Type: Medicare Other Coverage Verification Date: Telecom: Address:
--- OUTSIDE RECORDS SUMMARY | 2025-11-07 23:59 | XMS_ITS | Continuity of Care Document ---
Author Organization [facility] Address [address] [place] [address]- Care Team Providers Care Optical Manufacturing Technician Name Role Phone Isabell Sheridan MD [id number] 10/08/25 - 11/07/25 [facility] [address] [place] [address]- Encounter Type: Triage Allergies, Adverse Reactions, Alerts No Known Medication Allergies Immunizations Given and Recorded Vaccine Date Status Refusal Reason influenza virus vaccine, inactivated 09/09/23 Henok rded influenza virus vaccine, inactivated 09/18/21 Henok rded [id number] bivalent booster vax 09/26/22 Recorded SARS-CoV-2 mRNA ([id number]) vax 05/09/22 Given SARS-CoV-2 (COVID-19) mRNA BNT-162b2 vac 11/22/21 Recorded SARS-CoV-2 (COVID-19) Ad26 vaccine 1 05/22/21 Give n 1Result Comment: [id number] Medications Aspirin Tablet 81 mg, By Mouth, [...] Team Personnel Name: Pam Liang CNM Position: [facility] Boot And Saddle Repair Person Member Role: Primary Care Nurse Address: [address] [facility] [employer], [place] [address]- [place] Telecom: Name: Sarah Lau Position: [facility] Medical Student Member Role: Primary Care Nurse Name: Renita Ribeiro RN Position: [facility] RN Member Role: Primary Care Nurse Name: Sharri Harp RN Position: [facility] ED RN W/OE and Tasks Member Role: Primary Care Nurse Name: Stephanie Raman RN Position: [facility] RN Member Role: Primary Care Nurse Name: Dede Vazquez Position: [facility] Outreach Member Role: Lifetime Consulting Physician Name: Tiera Cisse Position: [facility] Outreach Member Role: Lifetime Consulting Physician Name: Randy Walsh LPN Position: [facility] RN Member Role: Primary Care Nurse Name: Brooklyn Casey RN Position: [facility] RN Member Role: Primary Care Nurse Name: Lilly Paulino RN Position: [facility] RN Member Role: Primary Care Nurse Name: Delicia Juares RN Position: [facility] RN Member Role: Primary Care Nurse Name: Ale Rand RN Position: [facility] AMB Nurse Member Role: Primary Care Nurse Name: Swathi Diaz NP Position: [facility] Associate Professional Member Role: Lifetime Consulting Provider Address: [address] [facility] [place] [address]- Telecom: Name: Saqib Bertrand MD Position: [facility] Renal MD Member Role: Lifetime Consulting Physician Address: [address] [facility] [place] [address]- [place] Telecom: Name: [employer] ([employer]) Laura 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 Member Role: Alodize Machine Operator Name: Garcia Trujillo DO Position: [facility] Renal MD Member Role: Lifetime Consulting Physician Address: [address] [facility] [place] [address]- [place] Telecom: Name: Nguyễn Barbosa III, RN Position: [facility] RN Member Role: Primary Care Nurse Name: Ward Addison RN Position: [facility] RN Member Role: Primary Care Nurse Name: Isabell Sheridan MD Position: [facility] Physician - Primary Care Member Role: PCP Address: [address] [place] [address] [place] [address]- Telecom: Name: Susie Steel RN Position: S RN Member Role: Primary Care Nurse Name: Branden Chacko RN Position: S RN Member Role: Primary Care Nurse Name: Jackie Zaidi RN Position: S RN Member Role: Primary Care Nurse Name: Paula Brown RN Position: [facility] RN Member Role: Primary Care Nurse Name: Jolene Quinonez RN Position: [facility] RN Member Role: Primary Care Nurse Name: Melba Hidalgo RN Position: [facility] RN Member Role: Primary Care Nurse Name: Maribell Gomez RN Position: [facility] RN Member Role: Primary Care Nurse Name: Corina Hill RN Position: [facility] RN Member Role: Primary Care Nurse Name: Anita Zapien RN Position: [facility] RN Member Role: Primary Care Nurse Name: Guillermo Jackson RN Position: [facility] RN Member Role: Primary Care Nurse Care Team Related Persons Name: LARRYCINDY NOBLE Name: CAROL BERNSTEIN Insurance Providers Guarantor name: JOANN DOMINGUEZYOKASTA Health Plan Information #: 1 Payer: MEDICARE B Payer Identifier: Member Number: [id number] Group Number: Subscriber Identifier: Relationship to Subscriber: self Coverage Type: NA Coverage Verification Date: NA Telecom: NA Address: Health Plan Information #: 2 Payer: [facility] Payer Identifier: NA Member Number: [id number] Group Number: [id number] Subscriber Identifier: Relationship to Subscriber: self Coverage Type: Medicare Other Coverage Verification Date: NA Telecom: Address:
[2025-11-09 06:41] LABS: MANUAL DIFF FLAG NO
--- OUTSIDE RECORDS SUMMARY | 2025-11-09 06:43 | XMS_ITS | Encounter Summary ---
Author Organization [facility] Address [address] [place] [address] Care Team Providers Care Heavy Equipment Operator/Paver Name Role Phone Anabella Kumar SPRING FORMER MACHINE Primary Care Provider [phone] Reason for Visit * Reason Onset Date Comments special procedure 10/07/2025 Encounter Details Date Type Department Care Team ([facility] st Contact Info) Description 10/07/2025 Telephone Gastroenterology - [address] [phone] Eusebio Bates MD [address] [id number] Social History Tobacco Use Types Packs/Day Years Used Date Smoking Tobacco: Former Smokeless Tobacco: Never Alcohol Use Standard Drinks/Week Comments Not Currently 0 (1 standard drink = 0.6 oz pur e alcohol) Sex and Gender Information Value Date Recorded Sex Assigned at Not on file Legal Sex Male 10:22 PM EST Gender Identity Not on file Sexual Orientation Not on file documented as of this encounter Progress Notes * Orville Nick - 10/08/2025 2:02 PM EST 1st attempt to schedule an appointment - PATIENT STATED THAT HE IS IN REHAB AT THE MOMENT HE WILL CALL WHEN HE GETS DISCHARGED. * Kate Ramirez MA - 10/07/2025 2:51 PM EST RX's and allergies UTD. Thank you! * Fabienne Quigley - 10/07/2025 1:37 PM EST Referral received from Dr Isabell Peck's office for colon--passing to MA's for meds and allergy update. documented in this encounter Plan of Treatment Upcoming Encounters Date Type Department Care Team (Late st Contact Info) Description 02/01/2026 9:10 AM EST Office Visit [facility] Card[facility] [address] [place] [address] Dr Arechiga [address] [place] [phone] Hodan Osborne NP [address] [place] [address] Dr Hines [address] [place] [phone] documented as of this encounter Visit Diagnoses Not on filedocumented in this encounter Historical Medications * This list may reflect changes made after this encounter. multivitamin with minerals tablet Take 1 tablet by mouth 1 (one) time each day. ubidecarenone (CO Q-10 ORAL) Take 100 mg by mouth. 02/16/2025 Januvia 25 mg tablet Take 1 tablet (25 mg total) by mouth 1 (one) time each day. 08/10/2025 saccharomyces boulardii (FLORASTOR) 250 mg capsule Take 1 capsule (250 mg total) by mouth 1 (one) time each day. 07/23/2024 cholecalciferol, vitamin D3, (Vitamin D3) 25 mcg (1,000 unit) tablet,chewable Chew 50 mcg. 05/26/2024 added in this encounter Care Teams Heavy Equipment Operator/Paver Relationship Specialty Start Date End Date Anabella Kumar NP [address] [place] [address] PCP - General 02/07/22 documented as of this encounter
--- OUTSIDE RECORDS SUMMARY | 2025-11-09 06:43 | XMS_ITS | Encounter Summary ---
Author Organization [facility], Address [address] [place] [address] Phone Care Team Providers Care Tipple Repairer Name Role Phone Mykel Poole MD Primary Care Provider [phone] Reason for Visit * Reason Comments Med Refill Encounter Details Date Type Department Care Team (Late st Contact Info) Description 04/08/2024 Refill [facility] [address] [place] [phone] Garcia Trujillo DO [address] [place] [address] Social History Tobacco Use Types Packs/Day Years Used Date Smoking Tobacco: Former Cigarettes 0 Q uit: 12/02/1979 Smokeless Tobacco: Never Alcohol Use Standard Drinks/Week Comments Not Currently 0 (1 standard drink = 0.6 oz pur e alcohol) Sex and Gender Information Value Date Recorded Sex Assigned at Not on file Legal Sex Male 3:27 PM EST Gender Identity Not on file Sexual Orientation Not on file documented as of this encounter Plan of Treatment Not on file documented as of this encounter Visit Diagnoses Not on filedocumented in this encounter Care Teams Tipple Repairer Relationship Specialty Start Date End Date Mykel Poole MD [address] [place], [place] PCP - General Internal Medicine 03/16/21 documented as of this encounter
--- OUTSIDE RECORDS SUMMARY | 2025-11-09 06:43 | XMS_ITS | Clinical Summary ---
Author Organization [facility], Address [address] [place] [address] [place] [address] Phone Care Team Providers Care Sawmill Manager Name Role Phone Mykel Poole MD Primary Care Provider [phone] Allergies No known active allergies Medications losartan (COZAAR) 100 MG tablet losartan 100 mg tablet 11/17/2020 Active torsemide (Demadex) 10 MG tablet Take 1 tablet (10 mg total) by mouth 1 (one) time each day for 90 doses 90 tablet 2 07/03/2021 Active Aspirin 81 MG capsule Take 81 mg by mouth 11/01/2021 Active Cholecalciferol (Vitamin D3) 1000 units capsule Take 50 mcg by mouth 05/26/2024 Active vancomycin (VANCOCIN) 125 MG capsule TAKE 1 CAPSULE BY MOUTH EVERY OTHER DAY FROM 07/13 TO 09/06/2024 07/17/2024 Active saccharomyces boulardii (Florastor) 250 MG capsule Take 250 mg by mouth 07/23/2024 Active DULoxetine (Cymbalta) [address] capsule Take 1 capsule by mouth in the morning. 08/13/2022 Active B complex-vitamin C-folic acid (NEPHRO-ZANE) 0.8 MG tablet Take 0.8 mg by mouth 1 (one) time each day Active atorvastatin (LIPITOR) 80 MG tablet Take 40 mg by mouth 11/29/2021 Active sevelamer carbonate (RENVELA) 800 MG tablet Take 800 mg by mouth in the morning and 800 mg at noon and 800 mg in the evening. Take with meals. Swallow tablet whole; do not crush, break, or chew.. Active acetaminophen (TYLENOL) 325 MG tablet Take by mouth every 6 (six) hours if needed for mild pain Active carvedilol (COREG) 12.5 MG tablet Take 12.5 mg by mouth in the morning and 12.5 mg in the evening. Take with meals. Active oxyCODONE (Roxicodone) 5 MG immediate release tablet Take 1 tablet (5 mg total) by mouth every 4 (four) hours if needed for moderate pain for up to 10 doses 10 tablet 10/06/2024 Active Active Problems Problem Noted Date Diagnosed Date Recurrent Clostridium difficile infection 2023 Obese class I 11/03/2024 Neck pain 11/03/2024 Anemia of renal disease 11/03/2024 Dependence on peritoneal dialysis 11/03/2024 End stage renal disease 10/20/2024 Adjustment disorder with depressed mood 10/20/20 24 Repeated falls 04/03/2024 Pleural effusion 04/03/2024 Muscle wasting and atrophy, not elsewhere classified, multiple sites 04/03/2024 Major depressive disorder with single episode Pure hypercholesterolemia 03/07/2024 Presence of aortocoronary bypass graft Other complications followin g infusion, transfusion and therapeutic injection, initial encounter 03/07/2024 Coronary arteriosclerosis 03/07/2024 Essential (primary) hypertension 03/07/2024 Moderate protein-calorie malnutrition 08/29/2021 Secondary hyperparathyroidism of renal origin Anemia in chronic kidney disease 08/23/2021 Hyperlipidemia 08/23/2021 Iron deficiency anemia 08/23/2021 Hearing difficulty 08/03/2021 Vitamin D deficiency 05/08/2021 Stage 5 chronic kidney disease 05/03/2021 Type 2 diabetes mellitus with renal manifestatio ns 04/27/2021 Renal hypertension 04/27/2021 Nephrotic range proteinuria 04/27/2021 Hyperkalemia 04/27/2021 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 Pt to have surgery as scheduled. EKG performed in-office, see results Dyslipidemia 12/29/2019 01/12/2021 Overview (01/12/2021): Last Assessment & Plan: Stable 2/2 DM II Advise diet and exercise Monitor Bilateral cataracts 12/15/2019 01/12/20 Overview (01/12/2021): Last Assessment & Plan: Stable Continue care w/ eye specialists Monitor Type 2 diabetes mellitus 12/15/201910/2021 Overview (01/12/2021): Last Assessment & Plan: Not at goal GFR 30 on 12/2019 Avoid NSAIDs Limit salt intake Control BP Plans to see nephrology, Dr. Eisenberg F/u w/ specialist Monitor Last Assessment & Plan: Stable Lab Results Component Value Date A1C 7.7 (H) 12/18/2019 GLU 211 (H) 01/22/2020 MICROALBUMIN 228.3 12/18/2019 GFRNON 24 (L) 01/22/2020 GFRAA 28 (L) 01/22/2020 find new PCP in [place] Will complete forms for financial assistance Continue to monitor Screening for malignant neoplasm of prostate 0 01/12/2021 Overview (01/12/2021): Last Assessment & Plan: Stable Check PSA Monitor Encounters Date Type Department Care Team Description 11/01/2025 Treatment [facility], [address] [place] [address] Jimmy Mckeon MD End stage renal disease; Dependence on renal dialysis 10/26/2025 Treatment [facility], [address] [place] [address] Jimmy Mckeon MD End stage renal disease; Dependence on renal dialysis 10/04/2025 Treatment [facility], [address] [place] [address] Jimmy Mckeon MD End stage renal disease; Dependence on renal dialysis 09/27/2025 Treatment [facility], [place] [address] Jimmy Mckeon MD End stage renal disease; Dependence on renal dialysis 09/08/2025 Treatment [facility], [place] [address] Jimmy Mckeon MD End stage renal disease; Dependence on renal dialysis 08/25/2025 Treatment [facility], [place] [address] Jimmy Mckeon MD End stage renal disease; Dependence on renal dialysis 08/11/2025 Treatment [facility] [place] [address] Jimmy Mckeon MD End stage renal disease; Dependence on renal dialysis from Last 3 Months Social History Tobacco Use Types Packs/Day Years [...] on file Sexual Orientation Not on file Last Filed Vital Signs Vital Sign Reading Time Taken Comments Blood Pressure 166/92 12/29/2024 3:07 PM EST Pulse 80 12/29/2024 3:07 PM EST Temperature 36.3 C (97.3 F) 12/29/2024 3:07 PM EST Respiratory Rate 16 08/04/2021 10:10 AM EDT Oxygen Saturation 96% 12/29/2024 3:07 PM EST Inhaled Oxygen Concentration - - Weight 75.8 kg (167 lb) 12/29/2024 3:07 PM EST Height 175.3 cm (5' 9 ) 12/29/2024 3:07 PM EST Body Mass Index 24.66 12/29/2024 3:07 PM EST Plan of Treatment Health Maintenance Due Date Last Done Comments Hepatitis B Vaccine (1 of 5 - Risk Dialysis 4-dose series) 1974 Colorectal Cancer Screening: Annual FOBT 2003 Colorectal Cancer Screening: Colonoscopy 2003 Colorectal Cancer Screening: Sigmoidoscopy 2003 Diabetes: Ophthalmology Exam 12/30/2020 Diabetes: Pedal Pulse Checked 12/30/2020 Diabetes: Sensory Foot Exam 12/30/2020 Diabetes: Visual Foot Exam 12/30/2020 Influenza Vaccine (#1) 2025 08/03/2024, 2022 Diabetes: Hemoglobin A1C 12/02/2025 025, 06/02/2025, 03/03/2025, Additional history exists Pneumococcal Vaccine: 50+ Years Completed , 03/19/2022 Pneumococcal Vaccine: Peds ( 0 to 5 Years) and At-Risk Patients (6 to 49 Years) Discontinued 05/16/2022, 03/19/2022 Procedures Procedure Name Priority Date/Time Associated Diagnosis Comments FERRITIN Routine 09/06/2025 3:00 AM EDT TRANSFERRIN SATURATION Routine 3:00 AM EDT ELECTROLYTE PANEL Routine 09/06/2025 3:0 0 AM EDT MAGNESIUM Routine 09/06/2025 3:00 AM EDT LIPID PANEL Routine 09/06/2025 3:00 AM EDT PROTEIN, TOTAL, SERUM Routine 09/06/2025 3:00 AM EDT LACTATE DEHYDROGENASE Routine 09/06/2025 3:00 AM EDT LIH (HC) Routine 09/06/2025 3:00 AM EDT GLUCOSE, RANDOM Routine 09/06/2025 3:00 AM EDT BILIRUBIN, TOTAL Routine 09/06/2025 3:00 AM EDT CREATININE, SERUM Routine 09/06/2025 3:0 0 AM EDT AST Routine 09/06/2025 3:00 AM EDT ALT Routine 09/06/2025 3:00 AM EDT ALKALINE PHOSPHATASE Routine 09/06/2025 3:00 AM EDT CALCIUM PHOSPHORUS PRODUCT, ADJUSTED (HC) Routine 09/06/2025 3:00 AM EDT PTH, INTACT Routine 09/06/2025 3:00 AM EDT POORLY SPUN TUBE (HC) Routine 09/01/2025 3:00 AM EDT HEMOGLOBIN A1C Routine 09/01/2025 3:00 AM EDT KT/V NATURAL LOG, URR (HC) Routine 09/01/2025 3:00 AM EDT CBC AND DIFFERENTIAL Routine 09/01/2025 3:00 AM EDT HEMOGLOBIN AND HEMATOCRIT, BLOOD Routine 08/18/2025 3:00 AM EDT LIH (HC) Routine 08/16/2025 3:00 AM EDT CALCIUM PHOSPHORUS PRODUCT, ADJUSTED (HC) Routine 08/16/2025 3:00 AM EDT LIH (HC) Routine 08/11/2025 3:00 AM EDT CO2, TOTAL Routine 08/11/2025 3:00 AM EDT from Last 3 Months Results * LIH (09/06/2025 3:00 AM EDT) Only the most recent of3 resultswithin the time period is included. Lipemia Normal Normal [facility] Icterus Normal Normal [facility] Hemolysis Normal Normal [facility] 09/06/2025 3:00 AM EDT 09/08/2025 12:05 PM EDT Joni Lewis MD LAB [id number] SOLICITED RESULTS Final Result Performing Organization Address [facility] de Phone Number [facility] [address] [place] [address] * (ABNORMAL) Calcium Phosphorus Product, Adjusted (09/06/2025 3:00 AM EDT) Only the most recent of2 resultswithin the time period is included. Albumin 4.6 3.6 - 5.4 g/dL [facility] Calcium 9.2 8.6 - 10.3 mg/dL [facility] Phosphorus, Serum 9.4(H) 2.5 - 5.0 mg/dL [facility] Ca*PO4 86.5(A) <55.0 mg2/dL2 [facility] Calcium, Adjusted Total 9.2 8.6 - 10.3 mg/dL [facility] CA*PO4 CORRCTD 86.5(A) <55.0 mg2/dL2 [facility] 09/06/2025 3:00 AM EDT 09/08/2025 12:05 PM EDT Joni Lewis MD LAB [id number] SOLICITED RESULTS Final Result Performing Organization Address [facility] de Phone Number [facility] [address] [place] [address] * (ABNORMAL) TSAT (09/06/2025 3:00 AM EDT) Iron 54(L) 65 - 175 ug/dL [facility] Transferrin 160(L) 215 - 365 mg/dL [facility] TIBC 224 211 - 406 ug/dL [facility] Iron Saturation (TSat) 24 22 - 52 % [facility] 09/06/2025 3:00 AM EDT 09/08/2025 12:05 PM EDT us Joni Lewis MD LAB BLOOD ORDERABLES Final Re sult Performing Organization Address [facility] Co de Phone Number [facility] [address] [place] [address] * ALT (09/06/2025 3:00 AM EDT) ALT (SGPT) 12 10 - 49 U/L [facility] 09/06/2025 3:00 AM EDT 09/08/2025 12:05 PM EDT Joni Lewis MD LAB BLOOD ORDERABLES Final Re sult Performing Organization Address [facility] de Phone Number [facility] [address] [place] [address] * AST (09/06/2025 3:00 AM EDT) AST (SGOT) 20 <34 U/L [facility] 09/06/2025 3:00 AM EDT 09/08/2025 12:05 PM EDT Joni Lewis MD LAB BLOOD ORDERABLES Final Re sult Performing Organization Address [facility] de Phone Number [facility] [address] [place] [address] * Protein, total (09/06/2025 3:00 AM EDT) Total Protein 8.1 6.4 - 8.9 g/dL [facility] 09/06/2025 3:00 AM EDT 09/08/2025 12:05 PM EDT Joni Lewis MD LAB BLOOD ORDERABLES Final Re sult Performing Organization Address [facility] Co de Phone Number [facility] [address] [place] [address] * Alkaline phosphatase (09/06/2025 3:00 AM EDT) Alkaline Phosphatase 98 46 - 116 U/L [facility] 09/06/2025 3:00 AM EDT 09/08/2025 12:05 PM EDT Joni Lewis MD LAB BLOOD ORDERABLES Final Re sult Performing Organization Address [facility] de Phone Number [facility] [address] [place] [address] * (ABNORMAL) PTH, Intact (09/06/2025 3:00 AM EDT) PTH, Intact 796(H) 160 - 721 pg/mL [facility] Comment: Suggested (KDIGO) ESRD maintenance range is two to nine times the upper normal limit (80.1 pg/mL) for the laboratory. 09/06/2025 3:00 AM EDT 09/08/2025 12:05 PM EDT Joni Lewis MD LAB BLOOD ORDERABLES Final Re sult Performing Organization Address [facility] de Phone Number [facility] [address] [place] [address] * (ABNORMAL) Magnesium (09/06/2025 3:00 AM EDT) Magnesium 3.1(H) 1.9 - 2.7 mg/dL [facility] 09/06/2025 3:00 AM EDT 09/08/2025 12:05 PM EDT Joni Lewis MD LAB BLOOD ORDERABLES Final Re sult Performing Organization Address [facility] de Phone Number [facility] [address] [place] [address] * (ABNORMAL) Lactate dehydrogenase (09/06/2025 3:00 AM EDT) LDH 300(H) 120 - 246 U/L [facility] 09/06/2025 3:00 AM EDT 09/08/2025 12:05 PM EDT Joni Lewis MD LAB BLOOD ORDERABLES Final Re sult Performing Organization Address [facility]/ZIP Co de Phone Number [facility] [address] [place] [address] * (ABNORMAL) Glucose, random (09/06/2025 3:00 AM EDT) Glucose 116(H) 70 - 99 mg/dL [facility] Comment: ADA guidelines outline the following fasting glucose ranges: Normal: <100 Prediabetes: 100-125 Diabetes: >125 09/06/2025 3:00 AM EDT 09/08/2025 12:05 PM EDT Joni Lewis MD LAB BLOOD ORDERABLES Final Re sult Performing Organization Address [facility] Co de Phone Number [address] [address] * (ABNORMAL) Ferritin (09/06/2025 3:00 AM EDT) Pathologist [facility] Ferritin 1,604(H) 22 - 322 ng/mL [facility] 09/06/2025 3:00 AM EDT 09/08/2025 12:05 PM EDT Joni Lewis MD LAB BLOOD ORDERABLES Final Re sult Performing Organization Address [facility] Co de Phone Number [address] [address] * (ABNORMAL) Creatinine, serum (09/06/2025 3:00 AM EDT) Pathologist [facility] Creatinine 10.12(H) 0.70 - 1.30 mg/dL [facility] 09/06/2025 3:00 AM EDT 09/08/2025 12:05 PM EDT Joni Lewis MD LAB BLOOD ORDERABLES Final Re sult Performing Organization Address [facility] Co de Phone Number [facility] [address] [place] [address] * (ABNORMAL) Bilirubin, total (09/06/2025 3:00 AM EDT) Total Bilirubin <0.2(L) 0.3 - 1.2 mg/dL [facility] 09/06/2025 3:00 AM EDT 09/08/2025 12:05 PM EDT Joni Lewis MD LAB BLOOD ORDERABLES Final Re sult Performing Organization Address [facility] de Phone Number [facility] [address] [place] [address] * (ABNORMAL) Lipid panel (09/06/2025 3:00 AM EDT) Cholesterol 113 mg/dL [facility] Comment: Optimal: <200 Borderline: 200-239 High Risk: >239 Triglycerides 136 mg/dL [facility] Comment: Optimal: <150 Borderline: 150-200 High Risk: >200 HDL 33(L) mg/dL [facility] Comment: Optimal: >59 Borderline: 40-59 High Risk: <40 LDL-Calc 53 mg/dL [facility] Comment: Optimal: <100 Borderline: 100-159 High Risk: >159 VLDL Cholesterol Bobo 27 mg/dL [facility] Comment: Optimal: <30 Borderline: 30-40 High Risk: >40 Chol/HDL Ratio 3.4(H) [facility] Comment: Optimal: <3.3 High Risk: >6.2 09/06/2025 3:00 AM EDT 09/08/2025 12:05 PM EDT Joni Lewis MD LAB BLOOD ORDERABLES Final Re sult Performing Organization Address [facility] de Phone Number [facility] [address] [place] [address] * (ABNORMAL) Electrolyte panel (09/06/2025 3:00 AM EDT) Sodium 138 136 - 145 mEq/L [facility] Potassium 5.0 3.4 - 5.0 mEq/L [facility] Chloride 96(L) 98 - 107 mEq/L [facility] Bicarbonate (CO2) 24 21 - 31 mEq/L [facility] Anion Gap 18(H) 3 - 14 mEq/L [facility] 09/06/2025 3:00 AM EDT 09/08/2025 12:05 PM EDT us Joni Lewis MD LAB BLOOD ORDERABLES Final Re sult Performing Organization Address [facility] Co de Phone Number [facility] [address] [place] [address] * Poorly Spun Tube (09/01/2025 3:00 AM EDT) Pathologist [facility] Poorly Spun TUBE [place] [facility] Comment:Received poorly cent rifuged specimen. Unable to perform testing. 09/01/2025 3:00 AM EDT us Joni Lewis MD LAB [id number] SOLICITED RESULTS Final Result Performing Organization Address [facility] de Phone Number [facility] [address] [place] [address] * Kt/V Natural Log, URR (09/01/2025 3:00 AM EDT) [facility] Treatment Time 203 min [facility] Pre-Weight, lb 79.4 kg [facility] Post-Weight, lb 79.0 kg [facility] Ultrafiltration Rate 1 <=13 mL/kg/hr [facility] Comment: Recommend achieving Ultrafiltration Rate (UFR) <=10 mL/kg/hr References: Sheri HOUSE et al. Kidney Int. 2010; 79(2):250-257 BUN Test Canceled mg/dL [facility] Comment:Received poorly cent rifuged specimen. Unable to perform testing. BUN Post Dialysis 14 7 - 25 mg/dL [facility] 09/01/2025 3:00 AM EDT 09/02/2025 1:42 PM EDT us Joni Lewis MD LAB HISTORICAL-CONVE RSIONS-UNSOLICITED RESULTS Edited Result - Final Performing Organization Address [facility] de Phone Number [facility] [address] [place] [address] * (ABNORMAL) CBC and Differential (09/01/2025 3:00 AM EDT) [facility] DIFFERENTIAL MANUAL, 2 Not Indicated [facility] White Blood Cells 12.6(H) 4.2 - 9.1 K/uL [facility] RBC 3.32(L) 4.63 - 6.08 M/uL [facility] Hgb 11.2(L) 13.7 - 17.5 g/dL [facility] Hemoglobin x 3 33.6(L) 41.1 - 52.5 g/dL [facility] Hematocrit 33.9(L) 40.1 - 51.0 % [facility] MCV 102.1(H) 79.0 - 92.2 fL [facility] MCH 33.7(H) 25.7 - 32.2 pg [facility] MCHC 33.0 32.3 - 36.5 g/dL [facility] RDW 12.7 11.6 - 14.4 % [facility] Platelets 233 163 - 337 K/uL [facility] MPV 9.9 9.1 - 13.0 fL [facility] Neutrophils Relative 78.7(H) 34.0 - 67.9 % [facility] Lymphocytes Relative 9.2(L) 21.8 - 53.1 % [facility] Monocytes 8.9 5.3 - 12.2 % [facility] Eosinophils Relative 2.1 0.8 - 7.0 % [facility] Basophils Relative 0.6 0.2 - 1.2 % [facility] Immature Granulocytes 0.5 0.0 - 1.0 % [facility] 09/01/2025 3:00 AM EDT 09/02/2025 1:39 PM EDT us Joni Lewis MD LAB BLOOD ORDERABLES Final Re sult [facility] [address] [place] [address] * (ABNORMAL) Hemoglobin A1c (09/01/2025 3:00 AM EDT) Hemoglobin A1C 5.9(H) <5.7 % [facility] Comment: Methodology: Enzymatic Normal: <5.7% Prediabetes: 5.7-6.4% Diabetes: >6.4% Diabetic Glucose Control Evaluation: Therapeutic action suggested at >8.0% ADA recommends a glycemic goal of <7.0% 09/01/2025 3:00 AM EDT 09/02/2025 1:39 PM EDT Joni Lewis MD LAB BLOOD ORDERABLES Final Re sult Performing Organization Address [facility] de Phone Number [facility] [address] [place] [address] * (ABNORMAL) Hemoglobin and hematocrit (08/18/2025 3:00 AM EDT) Hgb 10.6(L) 13.7 - 17.5 g/dL [facility] Hematocrit 31.0(L) 40.1 - 51.0 % [facility] Hemoglobin x 3 31.8(L) 41.1 - 52.5 g/dL [facility] 08/18/2025 3:00 AM EDT 08/19/2025 2:00 PM EDT Joni Lewis MD LAB BLOOD ORDERABLES Final Re sult Performing Organization Address [facility] Co de Phone Number [facility] [address] [place] [address] * CO2 (08/11/2025 3:00 AM EDT) Bicarbonate (CO2) 27 21 - 31 mEq/L [facility] 08/11/2025 3:00 AM EDT 08/12/2025 2:06 PM EDT Joni Lewis MD LAB BLOOD ORDERABLES Final Re sult Performing Organization Address [facility] Co de Phone Number [facility] [address] [place] [address] from Last [address] [place] [address] [place] [address] Medicare Care Teams Sawmill Manager Relationship Specialty Start Date End Date Mykel Poole MD [address] [place] [address] [place] PCP - General Internal Medicine 03/16/21
--- OUTSIDE RECORDS SUMMARY | 2025-11-09 06:43 | XMS_ITS | Clinical Summary ---
Author Organization [facility] Address [address] [place] [address] Phone Care Team Providers Care Surveillance Sensor Officer Name Role Phone Anabella Kumar CONVEYOR LOADER Primary Care Provider [phone] Allergies No known active allergies Medications atorvastatin (LIPITOR) 40 mg tablet Take 1 tablet (40 mg total) by mouth 1 (one) time each day. 90 each 1 03/01/2025 Active aspirin 81 mg EC tablet TAKE 1 TABLET BY MOUTH 1 TIME EACH DAY. 90 tablet 1 08/11/2025 Active cholecalciferol , vitamin D3, (Vitamin D3) 25 mcg (1,000 unit) tablet,chewable Chew 50 mcg. 05/26/2024 Active saccharomyces boulardii (FLORASTOR) 250 mg capsule Take 1 capsule (250 mg total) by mouth 1 (one) time each day. 07/23/2024 Active Januvia 25 mg tablet Take 1 tablet (25 mg total) by mouth 1 (one) time each day. 08/10/2025 Active ubidecarenone (CO Q-10 ORAL) Take 100 mg by mouth. 02/16/2025 Active multivitamin with minerals tablet Take 1 tablet by mouth 1 (one) time each day. Active Active Problems Problem Noted Date Diagnosed Date Cardiac murmur 03/01/2025 Assessment & Plan (03/01/2025 4:43 PM EDT): Patient has a 3/6 systolic murmur heard on physical examination. Loudest at the apex. We will update an echocardiogram. He denies any clinical symptoms of heart failure at this time. ESRD (end stage renal disease) 12/08/2021 Hyperlipidemia 12/08/2021 Overview (03/01/2025): Last Assessment & Plan: Last LDL 61. Goal LDL is less than 70. Continue with maximum dose statin as prescribed. Assessment & Plan (03/01/2025 4:43 PM EDT): Patient encouraged to take her atorvastatin grams daily as previously prescribed given his known coronary artery disease. Goal LDL cholesterol is less than 70. CAD (coronary artery disease) 12/06/2021 Overview (03/01/2025): CABG x4 Assessment & Plan (03/01/2025 4:18 PM EDT): Patient has history of coronary artery disease status post CABG x4 with an RESENDIZ to the LAD, saphenous vein graft to the PDA, saphenous vein graft to the OM and a saphenous vein graft to the diagonal. He denies any exertional anginal symptoms. Nuclear stress test was negative for ischemia or infarction. He is not taking any of his medications due to forgetfulness and history of hypotension while at dialysis. Taking his medications as prescribed. He will continue on aspirin, carvedilol, nifedipine and atorvastatin as prescribed. We will make no changes to his medical therapies today. I have reviewed with the patient the importance of a heart healthy lifestyle which includes eating a low-fat low-salt diet, getting regular exercise, maintaining a healthy weight, not smoking, and following up with routine medical care. Diabetes mellitus with stage 3 chronic kidney di sease 01/20/2020 Chronic kidney disease, stage IV (severe) 2019 Hypertension 12/15/2019 Overview (03/01/2025): Last Assessment & Plan: Blood pressure is under excellent control with a reading today of 120/70. He should continue on his present medical therapies which include losartan and nifedipine and carvedilol. Assessment & Plan (03/01/2025 4:43 PM EDT): Blood pressure today 102/50. He is no longer on any antihypertensives. BP is monitored by renal. Resolved Problems Problem Noted Date Diagnosed Date Resolved Date Dyslipidemia 12/29/2019 03/01/2025 Encounters Date Type Department Care Team Description 10/07/2025 Telephone Gastroenterology - [address] [place] [address] Eusebio Bates MD 10/06/2025 Telephone [facility] [address] [place] [address] Richmond Lincoln MD from Last 3 Months Surgical History Surgery Date Site/Laterality Comments CORONARY ARTERY BYPASS GRAFT PROCEDURE: HISTORICAL CABG Medical History Medical History Date Comments CKD (chronic kidney disease) stage 4, GFR 15-29 ml/min ([facility] V24, [facility] V28) DX:CKD (chroni c kidney disease) stage 4, GFR 15-29 ml/min ([facility]) Hypertension, renal DX:Hypertens ion, renal Nephrotic range proteinuria DX:N ephrotic range proteinuria Anemia of renal disease DX:Anemi a of renal disease End stage renal disease ([facility] V24, [facility] V28) DX:End stage renal disease ( [facility]) Peritoneal dialysis status ([facility] V24) DX:Peritoneal dialysis status ([facility]) S/P CABG (coronary artery bypass graft) DX:S/P CABG (coronary artery bypass graft) Chronic ischemic heart disease D X:Chronic ischemic heart disease Hyperlipidemia DX:Hyperlipidemi a Family History Medical History Relation Name Comments No Known Problems Brother 1 No Known Problems Brother 2 No Known Problems Daughter Hypertension Father Stomach cancer Father Diabetes Mother Hypertension Mother Relation Name Status Comments Brother 1 Alive Brother 2 Alive Daughter Alive Father Mother Social History Tobacco Use Types Packs/Day Years [...] Sign Reading Time Taken Comments Blood Pressure 116/72 05/18/2025 3:17 PM EDT Pulse 80 03/01/2025 3:05 PM EDT Temperature - - Respiratory Rate - - Oxygen Saturation 96% 03/01/2025 3:05 PM EDT Inhaled Oxygen Concentration - - Weight 79.8 kg (176 lb) 05/18/2025 3:17 PM EDT Height 180.3 cm (5' 11 ) 05/18/2025 3:17 PM EDT Body Mass Index 24.55 05/18/2025 3:17 PM EDT Plan of Treatment Upcoming Encounters Date Type Department Care Team (Late st Contact Info) Description 02/01/2026 9:10 AM EST Office Visit [facility] [address] [facility] [address] [place] [address] Hodan Osborne NP [address] [place] [address] [address] [place] [id number] Health Maintenance Due Date Last Done Comments Diabetes: Annual GFR (Glomerular Filtration Rate) 1954 Diabetes: Annual Foot Exam 1964 Diabetes: Annual Retina Eye Exam 1964 DTaP,Tdap,and Td Vaccines (1 - Tdap) 1973 Zoster Vaccines (1 of 2) 1973 RSV Immunization Adult Patients (1 - Risk 50-74 years 1-dose series) 2004 Hepatitis B Vaccines (3 of 3 - 19+ 3-dose series) 06/04/2022 04/05/2022, 02/20/2022, 01/10/2022, Additional history exists Abdominal Aortic Aneurysm (AAA) Screen 11/10/2022 Falls Risk Assessment 11/10/2022 Hepatitis C Screening 11/10/2022 Medicare Annual Wellness Visit 11/10/2022 Social Influencers of Health Screening 11/10/2022 Hypertension/CHF/CAD Annual BMP Blood Test 11/11/2022 Diabetes: Annual Urine Albumin-Creatinine Ratio (uACR) 11/15/2022 Depression Screening 12/02/2024 COVID-19 Vaccine ( - season) 2025 09/26/2022, 05/09/2022, 11/22/2021, Additional history exists Influenza Vaccine (#1) 2025 4, 09/09/2023, 09/06/2022, Additional history exists Diabetes: Blood Sugar Control Test (HGBA1C) 09/02/2025 03/03/2025, 03/03/2025, 12/09/2024, Additional history exists Cholesterol Screening (Lipid Panel) 03/03/2030 03/03/2025, 12/09/2024 Colorectal Cancer Screening: Colonoscopy 10/08/2035 10/08/2025 Pneumococcal Vaccine: 50+ Years Completed 05/16/2022, 03/19/2022 HIB Vaccines Aged Out No longer eligi ble based on patient's age to complete this topic HPV Vaccines Aged Out No longer eligi ble based on patient's age to complete this topic Hepatitis A Vaccines Aged Out No long er eligible based on patient's age to complete this topic IPV Vaccines Aged Out No longer eligi ble based on patient's age to complete this topic MMR Vaccines Aged Out No longer eligi ble based on patient's age to complete this topic Meningococcal ACWY Vaccine Aged Out N o longer eligible based on patient's age to complete this topic Meningococcal B Vaccine Aged Out No l onger eligible based on patient's age to complete this topic RSV Immunization Patients Under 20 months Aged Out No longer eligible based on patient's age to complete this topic Varicella Vaccines Aged Out No longer eligible based on patient's age to complete this topic Procedures Procedure Name Priority Date/Time Associated Diagnosis Comments COLONOSCOPY Routine 10/08/2025 1:58 PM EST from Last 3 Months Results * COLONOSCOPY (10/08/2025 1:58 PM EST) Anatomical Region Laterality Modality Endoscopy us Historical Provider GI~PROCEDURE ORDERABLES F inal Result from Last 3 Months Insurance MEDICARE MEDICAID - [place] Care Teams Surveillance Sensor Officer Relationship Specialty Start Date End Date Anabella Kumar NP [address] [place] [address] PCP - General 02/07/22
--- OUTSIDE RECORDS SUMMARY | 2025-11-09 06:43 | XMS_ITS | Encounter Summary ---
Author Organization [facility], Address [address] [place] [address] Phone Care Team Providers Care Adoption Services Manager Name Role Phone Mykel Poole MD Primary Care Provider Reason for Visit * Reason Comments Med Refill Encounter Details Date Type Department Care Team (Late st Contact Info) Description 03/15/2023 Refill [facility] [address] [place] [phone] Garcia Trujillo DO [address] [place] [address] Social History Tobacco Use Types [...] on filedocumented in this encounter Care Teams Adoption Services Manager Relationship Specialty Start Date End Date Mykel Poole MD [address] [place], [place] PCP - General Internal Medicine 03/16/21 documented as of this encounter
--- OUTSIDE RECORDS SUMMARY | 2025-11-09 06:43 | XMS_ITS | Data Portability ---
Author Organization [place] [facility] Formerly [facility], [facility]_Billing Department Address [address] [place] [address] Care Team Providers Care Special Events Coordinator Name Role Phone GURU GARNICA Primary Care Provider [phone] [facility] PARTIDA OTHER Assessment Encounter Date Assessment Date Assessment LastModified by Organization Details LastModified Time 02/04/2020 02/04/2020 #CKD 4, likely d/t diabetic nephropathy --Scr 2.69 --eGFR 24 ml/min #HTN, stage 2: BP fairly well controlled #Anemia of chronic dx, hgb at goal 11.9 #DM, controlled. last Hgb A1c 7.9 # diabetic retinopathy Recommendation s: -Continue losartan 100 mg po daily -consider holing losartan and januvia if renal function worsens -Continue current home medications as listed below -Low salt less than 2 gm/ADA diet -Check BP, BG and keep a log, she is instructed on the proper way to check blood pressure at home. -Avoid NSAID -Avoid IV contrast -Check CBC, BMP, UA, UA/CR thalia Not available 02/04/2020 18:57:12 04/07/2020 04/07/2020 #CKD 4, likely d/t diabetic nephropathy --Scr 2.6-2.8 --eGFR 22-24 ml/min # nephrotic range proteinuria, UPCR 8.129 MG/G, mostly ue to diabetic nephropathy. #HTN, stage 2: BP fairly well controlled #Anemia of chronic dx, hgb at goal 11.9 #DM, controlled. last Hgb A1c 6.9 # diabetic retinopathy Recommendation s: -Continue losartan 100 mg po daily -Add Aldactone 25 mg po daily -Continue current home medications as listed below -Low salt less than 2 gm/ADA diet -Check BP, BG and keep a log, she is instructed on the proper way to check blood pressure at home. Goal BP is , 130/80 -Check SPEP, C3, C4 level, SELVIN. Hepatitis panel, Kidney Bx d/w patient, and at this time he wants to defer. [place] -Avoid NSAID -Avoid IV contrast -Check CBC, BMP, UA, UA/CR Time spent 25 min thalia Not available 04/07/2020 18:03:53 Plan of Treatment Reminders Order Date Submit Date Provider Last Modified By Organization Details Last Modified Time Details Appointments None recorded. Lab CBC w/ auto diff 2019 [facility], [address], [address], [place], [address], 0 17:40:45 PTH (parathyro id hormone), intact, serum or plasma 2019 [facility], [address], [address], [place], [address], 0 17:40:46 protein:cr eatinine ratio, urine 2019 [facility], [address], [address], [place], [address], 0 17:40:45 vitamin D, 25-hydroxy , total, serum 2019 [facility], [address], [address], [place], [address], 0 17:40:45 phosphorus , serum or plasma 2019 [facility], [address], [address], [place], [address], 0 17:40:46 CMP, serum or plasma 2019 [facility], [address], [address], [place], [address], 0 17:40:45 protein:cr eatinine ratio, urine 2019 [facility], [address], [address], [place], [address], 0 18:05:48 hepatitis C Ab, serum 2019 [facility], [address], [address], [place], [address], 0 18:05:48 HBsAg (hepatitis B surface Ag), serum 2019 [facility], [address], [address], [place], [address], 0 18:05:48 spep, serum, reflex immunofixa tion 2019 [facility], [address], [address], [place], [address], 0 18:05:48 SELVIN (antinucle ar antibodies ) screen, serum 2019 [facility], [address], [address], [place], [address], 0 18:05:48 HbA1c (hemoglobi n A1c), blood 2019 [facility], [address], [address], [place], [address], 0 18:05:48 anca panel, serum 2019 [facility], [address], [address], [place], [address], 0 18:05:48 C3 + C4 (complemen t), serum 2019 020 [facility], [address], [address], [place], [address], 0 18:05:48 CBC w/ auto diff 2019 020 [facility], [address], [address], [place], [address], 0 18:29:45 PTH (parathyro id hormone), intact, serum or plasma 2019 020 [facility], [address], [address], [place], [address], 0 18:30:32 protein:cr eatinine ratio, urine 2019 020 [facility], [address], [address], [place], [address], 0 18:29:46 vitamin D, 25-hydroxy , total, serum 2019 020 [facility], [address], [address], [place], [address], 0 18:29:46 phosphorus , serum or plasma 2019 020 [facility], [address], [address], [place], [address], 0 18:29:44 CMP, serum or plasma 2019 020 [facility], [address], [address], [place], [address], 0 18:29:45 Referral None recorded. Procedures None recorded. Surgeries None recorded. Imaging US, kidney 2019 020 [facility], [address] [facility] [address], [place], [address], 0 19:26:37 Medication Orders Aldactone 25 mg tablet 2019 020 [id number] [facility] [employer], [address] [facility], [place], [address], 0 17:36:19 Patient TargetsNo targets recorded. Patient Instructions Encounter Date Encounter Id Patient Instructions Last Modified By Organization Details Last Modified Time 02/04/2020 [id number] Plan of care d/w patient, all questions answered. thalia Not available 02/04/2020 18:43:42 04/07/2020 [id number] proteinuria: car e instructions thalia Not available 04/07/2020 18:01:48 plan of care d/w patient menarijenny Not available 04/07/2020 17:57:48 Reason for Referral None Reported. Results Created Date Observation Date Name Description Value Unit Range Abnormal Flag Note LastModifiedBy Organization Detail LastModifiedTime 03/31/20 20 04/01/2020 PTH (para thyro id hormo ne), intac t + calci um, serum or plasm a parathyroid hormone, intact 104 pg/mL 14-64 high Inter preti ve Guide Intac t PTH Calci um ----- ----- ----- --- ----- ----- ----- -- Georgie l Parat hyroi d Georgie l Georgie l Hypop cam yroid ism Low or Low Georgie l Low Hyper parat hyroi dism Prima ry Georgie l or High High Secon ruperto High Georgie l or Low Terti eugenia High High Non-P cam yroid Hyper calce niya Low or Low Georgie l High Not Available [facility] [address] [address], [place], [address], 04/01/2020 18:29:44 03/31/20 04/01/2020 PTH (para thyro id hormo ne), intac t + calci um, serum or plasm a calcium 8.7 mg/dL 8.6-10 .3 normal Not Available [address], [place], [address], 04/01/2020 18:29:44 03/31/2004/01/2020 phosp horus , serum or plasm a phosphate ( phosphorus) 4.3 mg/dL 2.1-4. 3 normal Not Available [address], [place], [address], 04/01/2020 18:29:44 03/31/2004/01/2020 CMP, serum or plasm a glucose 126 mg/dL 65-99 high Fasti ng refer ence inter katey For someo ne witho ut known diabe ethel, a gluco se value >125 mg/dL indic ates that they may have diabe ethel and this shoul d be confi rmed with a follo w-up test. Not Available [address], [place], [address], 04/01/2020 18:29:45 03/31/2004/01/2020 CMP, serum or plasm a urea nitrogen (BUN) 48 mg/dL 7-25 high Not Available [address], [place], [address], 04/01/2020 18:29:45 03/31/2004/01/2020 CMP, serum or plasm a creatinine 2.86 mg/dL 0.70-1 .25 high For patie nts >49 years of age, the refer ence limit for Creat inine is appro ximat yonny 13% highe r for peopl e ident ified as Afric an-Am juan carlos n. Not Available [facility] [address], [place], [address], 04/01/2020 18:29:45 03/31/20 20 04/01/2020 CMP, serum or plasm a eGFR non-afr. mexican 22 mL/mi n/1.7 3m2 > or = 60 low Not Available [address], [place], [address], 04/01/2020 18:29:45 03/31/20 20 04/01/2020 CMP, serum or plasm a eGFR 26 mL/mi n/1.7 3m2 > or = 60 low Not Available [address], [place], [address], 04/01/2020 18:29:45 03/31/20 20 04/01/2020 CMP, serum or plasm a BUN/creatini ne ratio 17 (calc ) 6-22 normal Not Available [address], [place], [address], 04/01/2020 18:29:45 03/31/20 20 04/01/2020 CMP, serum or plasm a sodium 140 mmol/ L 135-14 6 normal Not Available [address], [place], [address], 04/01/2020 18:29:45 03/31/20 20 04/01/2020 CMP, serum or plasm a potassium 4.9 mmol/ L 3.5-5. 3 normal Not Available [address], [place], [address], 04/01/2020 18:29:45 03/31/20 20 04/01/2020 CMP, serum or plasm a chloride 106 mmol/ L 98-110 normal Not Available [address], [place], [address], 04/01/2020 18:29:45 03/31/20 20 04/01/2020 CMP, serum or plasm a carbon dioxide 26 mmol/ L 20-32 normal Not Available [address], [place], [address], 04/01/2020 18:29:45 03/31/20 20 04/01/2020 CMP, serum or plasm a calcium 8.7 mg/dL 8.6-10 .3 normal Not Available [address], [place], [address], 04/01/2020 18:29:45 03/31/2004/01/2020 CMP, serum or plasm a protein, total 6.8 g/dL 6.1-8. 1 normal Not Available [address], [place], [address], 04/01/2020 18:29:45 03/31/20 20 04/01/2020 CMP, serum or plasm a albumin 3.7 g/dL 3.6-5. 1 normal Not Available [address], [place], [address], 04/01/2020 18:29:45 03/31/20 20 04/01/2020 CMP, serum or plasm a globulin 3.1 g/dL_ (calc ) 1.9-3. 7 normal Not Available [address], [place], [address], 04/01/2020 18:29:45 03/31/20 20 04/01/2020 CMP, serum or plasm a albumin/glob ulin ratio 1.2 (calc ) 1.0-2. 5 normal Not Available [address], [place], [address], 04/01/2020 18:29:45 03/31/20 20 04/01/2020 CMP, serum or plasm a bilirubin, total 0.4 mg/dL 0.2-1. 2 normal Not Available [address], [place], [address], 04/01/2020 18:29:45 03/31/2004/01/2020 CMP, serum or plasm a alkaline phosphatase 106 U/L 35-144 normal Not Available [facility] [address], [place], [address], 04/01/2020 18:29:45 03/31/20 20 04/01/2020 CMP, serum or plasm a AST 12 U/L 10-35 normal Not Available [address], [place], [address], 04/01/2020 18:29:45 03/31/2004/01/2020 CMP, serum or plasm a ALT 8 U/L 9-46 low Not Available [address], [place], [address], 04/01/2020 18:29:45 03/31/2004/01/2020 CBC w/ auto diff white blood cell count 9.9 thous and/u L 3.8-10 .8 normal Not Available [address], [place], [address], 04/01/2020 18:29:45 03/31/2004/01/2020 CBC w/ auto diff red blood cell count 4.04 milan on/uL 4.20-5 .80 low Not Available [address], [place], [address], 04/01/2020 18:29:45 03/31/20 20 04/01/2020 CBC w/ auto diff hemoglobin 12.1 g/dL 13.2-1 7.1 low Not Available [address], [place], [address], 04/01/2020 18:29:45 03/31/2004/01/2020 CBC w/ auto diff hematocrit 34.5 % 38.5-5 0.0 low Not Available [address], [place], [address], 04/01/2020 18:29:45 03/31/20 20 04/01/2020 CBC w/ auto diff MCV 85.4 fL 80.0-1 00.0 normal Not Available [address], [place], [address], 04/01/2020 18:29:45 03/31/20 20 04/01/2020 CBC w/ auto diff MCH 30.0 pg 27.0-3 3.0 normal Not Available [address], [place], [address], 04/01/2020 18:29:45 03/31/20 20 04/01/2020 CBC w/ auto diff MCHC 35.1 g/dL 32.0-3 6.0 normal Not Available [address], [place], [address], 04/01/2020 18:29:45 03/31/20 20 04/01/2020 CBC w/ auto diff RDW 13.3 % 11.0-1 5.0 normal Not Available [address], [place], [address], 04/01/2020 18:29:45 03/31/20 20 04/01/2020 CBC w/ auto diff platelet count 204 thous and/u L 140-40 0 normal Not Available [address], [place], [address], 04/01/2020 18:29:45 03/31/20 20 04/01/2020 CBC w/ auto diff MPV 9.3 fL 7.5-12 .5 normal Not Available [address], [place], [address], 04/01/2020 18:29:45 03/31/20 20 04/01/2020 CBC w/ auto diff absolute neutrophils 6930 cells /uL 1500-7 800 normal Not Available [address], [place], [address], 04/01/2020 18:29:45 03/31/20 20 04/01/2020 CBC w/ auto diff absolute lymphocytes 1614 cells /uL 850-39 00 normal Not Available [address], [place], [address], 04/01/2020 18:29:45 03/31/20 20 04/01/2020 CBC w/ auto diff absolute monocytes 752 cells /uL 200-95 0 normal Not Available [address], [place], [address], 04/01/2020 18:29:45 03/31/20 20 04/01/2020 CBC w/ auto diff absolute eosinophils 535 cells /uL 15-500 high Not Available [address], [place], [address], 04/01/2020 18:29:45 03/31/20 20 04/01/2020 CBC w/ auto diff absolute basophils 69 cells /uL 0-200 normal Not Available [address], [place], [address], 04/01/2020 18:29:45 03/31/20 20 04/01/2020 CBC w/ auto diff absolute nucleated RBC 0 cells /uL 0 normal Not Available [address], [place], [address], 04/01/2020 18:29:45 03/31/20 20 04/01/2020 CBC w/ auto diff neutrophils 70 % normal Not Available [address], [place], [address], 04/01/2020 18:29:45 03/31/20 20 04/01/2020 CBC w/ auto diff lymphocytes 16.3 % normal Not Available [facility] [address], [place], [address], 04/01/2020 18:29:45 03/31/20 20 04/01/2020 CBC w/ auto diff monocytes 7.6 % normal Not Available [address], [place], [address], 04/01/2020 18:29:45 03/31/20 20 04/01/2020 CBC w/ auto diff eosinophils 5.4 % normal Not Available [facility] [address], [place], [address], 04/01/2020 18:29:45 03/31/20 20 04/01/2020 CBC w/ auto diff basophils 0.7 % normal Not Available [address], [place], [address], 04/01/2020 18:29:45 03/31/20 20 04/01/2020 vitam in D, 25-hy droxy , total , serum vitamin D,25-oh,tota l,ia 12 NG/mL 30-100 low Vitam in D Statu s 25-OH Vitam in D: Defic iency : <20 ng/mL Insuf ficie ncy: 20 - 29 ng/mL Optim al: > or = 30 ng/mL For 25-OH Vitam in D testi ng on patie nts on D2-taylor pplem entat ion and patie nts for whom quant itati on of D2 and D3 fract ions is requi red, the [facility](TM ) 25-OH VIT D, (D2,D 3), LC/MS /MS is recom manny d: order code 96874 (jennifer ents >2yrs ). For more infor halima hallman on this test, go to: http: //[facility] christo hamilton stdia gnost ics.c om/fa q/FAQ 163 (This link is being provi ded for infor halima nal/e ducat ional purpo ses only. ) Not Available [address], [place], [address], 04/01/2020 18:29:46 03/31/20 20 04/01/2020 prote in:cr eatin ine ratio , urine creatinine, random urine 70 mg/dL 20-320 normal Not Available [address], [place], [address], 04/01/2020 18:29:46 03/31/20 20 04/01/2020 prote in:cr eatin ine ratio , urine protein/crea tinine ratio 8129 mg/g_ creat 22-128 high Not Available [address], [place], [address], 04/01/2020 18:29:46 03/31/20 20 04/01/2020 prote in:cr eatin ine ratio , urine protein/crea tinine ratio 8.129 mg/mg _crea t 0.022- 0.128 high Not Available [address], [place], [address], 04/01/2020 18:29:46 03/31/20 20 04/01/2020 prote in:cr eatin ine ratio , urine protein, total, random ur 569 mg/dL 5-25 high Verif ied by repea wilfred rufino sis. Not Available [address], [place], [address], 04/01/2020 18:29:46 02/23/20 20 02/23/2020 Desmond CARPENTER ation record ed. thalia [facility] (Xrays / Ultrasounds) [id number], [place], [address], 03/15/2020 23:27:14 Result Notes None recorded. Problems Name Problem SNOMED Code Status Onset Date Resolution Date Notes Provider Name and Address Organization Details Recorded Time Prediabetes 218039153 Active 2019 Jaden VERNON MD [address] [place] [address] [employer],[address], [place], [address], [facility] 0 18:16:16 Essential hypertension 77993605 Active 2019 Jaden VERNON MD [address] [place] [address] [employer],[address], [place], [address], [facility] 0 18:16:31 Retinopathy due to diabetes mellitus 0925089 Active 2019 Jaden VERNON MD [facility] [employer],[address], [place], [address], [facility] 0 18:27:46 Chronic kidney disease stage 4 521516598 Active 2019 Jaden VERNON MD [facility] [employer],[address], [place], [address], [facility] 0 18:28:06 Problem Notes None recorded. Medical Equipment None Reported. Allergies No known drug allergies Medications Name Sig Start Date Stop Date Status Note LastModified by Organization Details LastModified Time atorvastatin 20 mg tablet Take 1 tablet every day by oral route. active Not Available Not Available No t Available ofloxacin 0.3 % eye drops active Not Available Not Available No t Available prednisolone acetate 1 % eye drops,suspensio n active Not Available Not Available Not Available Aldactone 25 mg tablet Take 1 tablet every day by oral route. 2019 active Not Available Not Available Not Avai lable ciprofloxacin 0.3 % eye drops active Not Available Not Availa ble Not Available amlodipine 10 mg tablet Take 1 tablet every day by oral route. active Not Available Not Available No t Available losartan 100 mg tablet Take 1 tablet every day by oral route. active Not Available Not Available No t Available Januvia 25 mg tablet Take 1 tablet every day by oral route. active Not Available Not Available No t Available OneTouch Delica Plus Lancet 33 gauge active Not Available Not Available Not Available Vitals Date Recorded Body height Body mass index (BMI) Body weight Heart rate Systolic And Diastolic Provider Name and Address Organization Details Last Updated DateTime 02/04/2020 180.34 cm 28.5 kg/m2 42933.84 g 97 /min 122/76 mm[Hg] Swapna Woodard [facility] 0 18:03:43 Date Recorded Body height Body mass index (BMI) Body weight Provider Name and Address Organization Details Last Updated DateTime 04/07/2020 180.34 cm 28.5 kg/m2 89820.84 g Marifer Gonzales [facility] 04/07/2020 16:53:01 Social History Question Answer Notes LastModified by Organizat ion Details LastModified Time Tobacco Smoking Status Former Smoker Swapna johnson [facility] 02/04/2020 18:03:57 How Much Tobacco Do You Smoke? 1 PPD [id number] Information not available 02/04/2020 Sex: Male Functional Status None recorded. Mental Status None recorded. Family History Nothing Reported. Medical History No medical history recorded. Past Encounters Encounter ID Performer Location Encounter Start Date Encounter Closed Date Diagnosis/Indication Diagnosis SNOMED-CT Code Diagnosis ICD10 Code Diagnosis IMO Codes Diagnosis Note [id number] Jaden VERNON MD [facility] [address] [place] [address] 02/04/2020 17:28:23 02/04/2020 18:40:08 Chronic kidney disease stage 4 847297564 N18.4 [id number] Jaden VERNON MD [facility] health [address] [place] [address] 04/07/2020 16:49:36 04/11/2020 18:24:55 Chronic kidney disease stage 4 898640502 N18.4 Essential hypertension 52214242 I10 Proteinuria 24728045 R80 .9 Health Concerns Section Related Observation LastModified by Organization Detai ls LastModified Time None Recorded Concern Status LastModified by Organization Details LastModified Time None Recorded Advance Directives Directive None Recorded Payers Insurance Date Sequence Insurance Name Policy Number Policy Parks Covered Member ID Parks Member ID Guarantor Name 07/04/2020 1 [facility] [place] [id number] Jordan Valdovinos [id number] Jordan Valdovinos Notes Date Note Type Note Provider Name and Address Organization Details Recorded Time 02/04/2020 text/html A 64 y/o male with h/o DM x 2 years, and recent diabetic retinopathy and HTN, is found to have abnormal renal function panel by his PCP. he states that he has been prediabetic for long time, and recently started on Januvia 25 mg po daily, and since then BG has been better controlled. denies any NSAIDS or IV contrast exposure. BP has been controlled on losartan., avarage 130/80 He has occ LE edema, but no N/V/D, no flank pain. Jaden VERNON MD [facility] [address] [facility], [place], [address], [facility] 02/04/2020 18:57:36 04/07/2020 text/html This visit was performed during the period of EXPANSION OF TELEHEALTH WITH [employer] that began on February 05, 2020. The visit is being performed using an interactive audio and video telecommunications system. Telecommunications consent has been verbally reviewed with the patient and patient understands and agrees to continue with this telehealth visit. Signed consent will be performed at a later date. The patient is at their home and the provider is in the office. Mr Valdovinos is doing well, no new events. No LE edema, no urinary symptoms. BP is better controlled, BP is 145/90 Jaden VERNON MD [address] [facility],[address], [place], [address], [facility] 04/07/2020 18:05:32
--- OUTSIDE RECORDS SUMMARY | 2025-11-09 06:43 | XMS_ITS | Patient Health Record ---
[facility] Organization [facility] [place] Address [address] [place] [address] Care Team Providers Care Instrument Adjuster Name Role Phone MD Isabell Sheridan Primary Care Provider Mickey Cedeno Unavailable [phone] Allergies No Known Allergies Results Component Value [...] Problem Acquired hammer toe of right foot (7262717576552559 ) Other hammer toe(s) (acquired), right foot (M20.41) Active confirmed Problem Acquired hammer toe of left foot (0322863104440986 ) Other hammer toe(s) (acquired), left foot (M20.42) Active confirmed Problem Polyneuropathy due to type 2 diabetes mellitus (889332816) Type 2 diabetes mellitus with diabetic polyneuropathy (E11.42) Active confirmed Vital Signs Blood pressure diastolic 65 mm Hg 06/29/2025 Height 5 ft 10 in in 06/29/2025 Blood pressure systolic 128 mm Hg 06/29/2025 Weight 176 lbs 06/29/2025 BMI 25.25 kg/m2 06/29/2025 Procedures Procedure Date Ordered Date Performed Result Body Sit e 58140-JETBWFC NAIL, 1-5 06/29/2025 N/A 36541-KEFU SKIN LESIONS, 2 TO 4 06/29/2025 N/A B7584-NJJYAJDT DYSTROPHIC NAILS ANY # 06/29/2025 N/A Encounters Encounter Location Date Provider Diagnosis [facility] [address] [address] 06/29/2025 Mickey Pierre Type 2 diabetes mellitus with diabetic polyneuropathy E11.42 ; Tinea unguium B35.1 ; Other hammer toe(s) (acquired), right foot M20.41 and Other hammer toe(s) (acquired), left foot M20.42 [facility] [address] [address] 10/18/2025 Mickey Pierre Assessments Encounter Date Diagnosis (ICD Code) Assessment [...] Treatment Pending Test Test Name Order Date 08918-SIWUSMW NAIL, 1-5 06/29/2025 85653-TDSW SKIN LESIONS, 2 TO 4 06/29/20 U8728-QNZJBAPR DYSTROPHIC NAILS ANY # Next Appt Details Provider Name:Mickey Pierre , 01/25/2026 02:30:00 PM, [address] [place] [address], [phone], Insurance Providers Payer Name Payer Address Payer Phone Subscriber Number Group Number Insured Name Patient Relationship to Insured Coverage Start Date Coverage End Date [employer] [address] [place] [address] [id number] Jordan Valdovinos Self - patient is the insured [address] [place] [address] [id number] Jordan Valdovinos Self - patient is the [...]
--- OUTSIDE RECORDS SUMMARY | 2025-11-09 06:43 | XMS_ITS | Encounter Summary ---
Author Organization [facility] Address [address] [place] [address] Phone Care Team Providers Care International Controller Name Role Phone Mykel Poole MD Primary Care Provider [phone] Encounter Details Date Type Department Care Team (Late st Contact Info) Description 01/26/2025 Documentation Only [facility], [address] [place] [address] Tiera Cisse [address] [place] [address] Social History Tobacco Use Types Packs/Day Years [...] on filedocumented in this encounter Care Teams International Controller Relationship Specialty Start Date End Date Mykel Poole MD [address] [place], [place] PCP - General Internal Medicine 03/16/21 documented as of this encounter
[2025-11-09 07:15] LABS: Hematocrit 31.8 % (42.0-52.0); Hemoglobin 10.8 g/dl (14.0-18.0); Imm Gran Abs Auto 0.03 X10*3/uL (0.00-0.03); Imm Gran Pct Auto 0.4 % (0.0-0.4); Lymphocytes Absolute Auto 1.7 X10*3/uL (1.2-4.9); Mean Corpuscular HGB Conc 34.0 g/dl (31.0-36.0); Mean Corpuscular Hemoglobin 32.9 pg (27.0-33.0); Mean Corpuscular Volume 97.0 fL (80.0-98.0); NRBC Abs Auto 0.000 X10*3/uL (0.0-0.012); NRBC Pct Auto 0.0 /100WBC (0.0-0.2); Platelet Count 184 X10*3/uL (160-400); Red Blood Count 3.28 X10*6/uL (4.60-5.80); White Blood Count 8.4 X10*3/uL (4.8-10.8)
[2025-11-09 08:01] LABS: Anion Gap 16 (12-20); Blood Urea Nitrogen 36 mg/dL (9-16); Calcium 9.3 mg/dL (8.4-10.2); Carbon Dioxide 33 mmol/L (22-29); Chloride 94 mmol/L (96-108); Estimated Glomerular Filt Rate 8; Potassium 3.7 mmol/L (3.3-5.1); Sodium 139 mmol/L (135-145)
== END 2025-11-09 06:40 | disposition home or self-care (01) ==
LOC: HO.MMNH1L 06:39
PROVIDERS: Visit Provider Physician Assistant Medical
DX: L03.90 Cellulitis, unspecified (principal)
CPT/HCPCS: 36415; 80048; 85025